=== PATIENT | female | born 1945 ===

== ENCOUNTER 2017-02-16 17:11 | Inpatient (IN) | payer MEDICARE, OTHER ==
--- NOTE | 2017-02-16 18:25 | ED PDOC ---
HPI: CCC, URI, Sore Throat Time Seen by Provider: 02/16/17 17:27 Chief Complaint (Nursing): Shortness Of Breath Chief Complaint (Provider): Shortness of Breath History Per: Patient History/Exam Limitations: no limitations Have you had recent travel within the past 21 days to any of the following countries: [place], [place], [place] or [place]?: No Onset/Duration Of Symptoms: Days (x7) Current Symptoms Are (Timing): Still Present Sick Contacts (Context): None Associated Symptoms: Other (chest pressure). denies: Fever Additional Complaint(s): 71 year old female presents to ED with complaints of shortness of breath x1 week and has a past medical history of rheumatoid arthritis and HTN. (+) nonproductive cough and intermittent midsternal chest pain x2 weeks but no pain at this time. (-) fever or palpitations. PCP: Bryson Isbell Past Medical History Reviewed: Historical Data, Nursing Documentation, Vital Signs Vital Signs: Last Vital Signs Temp 97.5 F L 02/21/17 16:00 Pulse 100 H 03/03/17 16:57 Resp 18 02/21/17 16:00 BP 110/78 02/21/17 16:00 Pulse Ox 98 03/03/17 16:57 - Medical History PMH: Arthritis (Rheumatoid), HTN Denies: No Chronic Diseases - Surgical History Surgical History: No Surg Hx - Family History Family History: States: Unknown Family Hx - Social History Current smoker - smoking cessation education provided: No Ex-Smoker (has not smoked in the last 12 months): No Alcohol: None Drugs: Denies - Home Medications Home Medications: Ambulatory Orders Medication Instructions Recorded Celecoxib [celeBREX] 200 mg PO DAILY 02/17/17 Duloxetine HCl [Duloxetine HCl] 60 mg PO DAILY 02/17/17 Levothyroxine [Synthroid] 50 mcg PO DAILY 02/17/17 Loratadine [Claritin] 10 mg PO DAILY 02/17/17 Losartan [Cozaar] 25 mg PO DAILY 02/17/17 Methotrexate 8 tab PO FR 02/17/17 Tofacitinib Citrate [Xeljanz] 5 mg PO DAILY 02/17/17 Atorvastatin [Lipitor] 40 mg PO DAILY 02/21/17 Azithromycin [Zithromax] 250 mg PO DAILY 02/21/17 Enoxaparin [Lovenox] 40 mg SQ DAILY 02/21/17 Piperacillin/Tazobact 3.375 gm 3.375 gm IVPB Q6 02/21/17 [Zosyn 3.375 in NS 100ml] - Allergies Allergies/Adverse Reactions: Allergies Allergy/AdvReac Type Severity Reaction Status Date / Time No Known Allergies Allergy Verified 02/21/17 18:49 Review of Systems ROS Statement: Except As Marked, All Systems Reviewed And Found Negative Constitutional: Negative for: Fever Cardiovascular: Positive for: Chest Pain (chest pressure, but no pain at this time). Negative for: Palpitations Respiratory: Positive for: Cough, Shortness of Breath. Negative for: Sputum Physical Exam - Reviewed Nursing Documentation Reviewed: Yes Vital Signs Reviewed: Yes - Physical Exam Appears: Positive for: Non-toxic, No Acute Distress Skin: Positive for: Warm, Dry, Pallor Eye Exam: Positive for: Normal appearance Cardiovascular/Chest: Positive for: Regular Rate, Rhythm, Murmur Respiratory: Positive for: Normal Breath Sounds (in right lung), Decreased Breath Sounds (in left base). Negative for: Respiratory Distress Gastrointestinal/Abdominal: Positive for: Soft. Negative for: Tenderness Extremity: Positive for: Other (contracted digits) Neurologic/Psych: Positive for: Alert, Oriented - Laboratory Results Result Diagrams: 02/19/17 04:20 02/19/17 04:20 - ECG ECG Rhythm: Positive for: Sinus Rhythm, Left Bundle Branch Block Rate: 100 O2 Sat by Pulse Oximetry: 98 (RA) Pulse Ox Interpretation: Normal - Radiology X-Ray: Interpreted by Me X-Ray Interpretation: Infiltrates (RML, LLL) Medical Decision Making Medical Decision Makin Initial impression: chest pain, ASC, PNA Initial plan: * ABO/RH type * T&S * EKG * Labs * Lactic acid * Trop I * PTT/PT * CXR * BCx 1843 EKG: NSR @ 100 bpm. LBBB. No old EKG to compare. Scribe Attestation: Documented by Radha Robledo acting as a scribe for Yuki Marks MD. Scribe Attestation: All medical record entries made by the Scribe were at my direction and personally dictated by me. I have reviewed the chart and agree that the record accurately reflects my personal performance of the history, physical exam, medical decision making, and the department course for this patient. I have also personally directed, reviewed, and agree with the discharge instructions and disposition. Disposition - Clinical Impression Clinical Impression: Congestive cardiac failure, LBBB (left bundle branch block) - Disposition Disposition: Transfer of Care Disposition Time: 19:00 Condition: STABLE Patient Signed Over To: Mariella Carcamo
[2017-02-16] MEDS ORDERED: Azithromycin 500 MG in Sodium Chloride 0.9% 250 ML IV STA (18:36)
[2017-02-16 18:40] LABS: BASO # 0.1 K/uL (0.0-0.2); BASO % 0.6 % (0.0-2.0); EOS % 0.2 % (0.0-4.0); LYMPH # 0.9 K/uL (1.0-4.3); LYMPH % 8.4 % (20.0-40.0); MEAN CELL VOLUME 98.5 fl (81.0-99.0); MEAN CORPUSCULAR HEMOGLOBIN 31.4 pg (27.0-31.0); MEAN CORPUSCULAR HGB CONC 31.9 g/dL (33.0-37.0); MEAN PLATELET VOLUME 9.9 fl (7.2-11.7); MONO # 0.9 K/uL (0.0-0.8); NEUT % 82.8 % (50.0-75.0); NRBC % 0.1 % (0.0-0.0); PLATELET COUNT 234 K/uL (130-400); RED CELL DISTRIBUTION WIDTH 15.9 % (11.5-14.5); WHITE BLOOD COUNT 10.9 K/uL (4.8-10.8)
[2017-02-16 18:54] LABS: ALB/GLOB RATIO 1.2 (1.0-2.1); ALKALINE PHOSPHATASE 94 U/L (38-126); ALT/SGPT 163 U/L (9-52); AST/SGOT 120 U/L (14-36); BILIRUBIN,TOTAL 2.1 mg/dl (0.2-1.3); BLOOD UREA NITROGEN 18 mg/dl (7-17); CALCIUM 9.1 mg/dL (8.4-10.2); CARBON DIOXIDE 24 mmol/L (22-30); CHLORIDE 108 mmol/L (98-107); GFR AFRICAN-AMERICAN > 60; GLUCOSE,RANDOM 107 mg/dL (65-105); POTASSIUM 4.4 MMOL/L (3.6-5.0); SODIUM 146 mmol/l (132-148); TOTAL PROTEIN 6.3 G/DL (6.3-8.2)
[2017-02-16 19:03] LABS: PARTIAL THROMBOPLASTIN TIME 23.9 SECONDS (23.3-32.5)
[2017-02-16] MEDS ORDERED: cefTRIAXone (Rocephin) 1 gm Inj ONE (19:15)
--- NOTE | 2017-02-16 20:03 | ED PDOC ---
- Laboratory Results Result Diagrams: 02/16/17 18:30 02/16/17 18:30 - ECG O2 Sat by Pulse Oximetry: 98 (RA) Medical Decision Making Medical Decision Makin Patient signed over to me from Yuki Marks MD pending labs/admission. Patients has favor maker Dr Palacio. He will be consulted by FP team. Scribe Attestation: Documented by Radha Robledo acting as a scribe for Mariella Carcamo MD. Scribe Attestation: All medical record entries made by the Scribe were at my direction and personally dictated by me. I have reviewed the chart and agree that the record accurately reflects my personal performance of the history, physical exam, medical decision making, and the department course for this patient. I have also personally directed, reviewed, and agree with the discharge instructions and disposition. Disposition Discussed With : Dimas Sanchez Doctor Will See Patient In The: ED Counseled Patient/Family Regarding: Studies Performed, Diagnosis, Need For Followup - Clinical Impression Clinical Impression: CHF (congestive heart failure), LBBB (left bundle branch block) - POA Present On Arrival: None - Disposition Disposition: Admitted as In-Patient Disposition Time: 20:30
[2017-02-16 20:18] LABS: LARGE PLATELETS PRESENT; NEUTROPHIL 88 % (42-75); TOTAL CELLS COUNTED 100
--- NOTE | 2017-02-16 21:35 | CP.PCM.HP ---
Addendum entered and electronically signed by Dimas Sanchez MD 02/16/17 22:53 : A/P addendum: Elevated Liver Enzymes could be due to hepatic congestion 2/2 right sided heart failure follow ECHO in AM, since none on file to compare Cardiology input appreciated Original Note: <Dimas Sanchez - Last Filed: 02/16/17 22:36> History of Present Illness - History of Present Illness History of Present Illness: 71 y/o F with PMH of CAD, NE (3 years ago s/p cardiac cath but no stent placement), HTN, RA and hypothyroidism presenting with dyspnea on exertion x1 week. Associated w/ nonproductive cough and intermittent midsternal pressure type chest pain x2 weeks but no pain at this time. States being able to walk 1- 2 blocks only, does not take stairs due to dyspnea, uses 2 pillows to sleep at night due to orthopnea. States last ECHO was last year w/ air conditioning unit tester and was normal as per patient. Currently denies f/c/n/v/cp/ sob/ abd pain/focal weakness/MILLER/parasthesias Last seen by air conditioning unit tester Dr. Palacio 1 month ago, states being told ''she was fine''. Patient has not seen her PMD Dr. Isbell since 04/2016, stating that her other doctors have been refilling her medications. States being compliant with medications. ED Course: lasix, nitro, cxr, EKG revealing LBBB, troponin neg, pro BNP 68394, rocephin and azithro x 1 dose PMD: Dr. Isbell (last visit in [facility] since 04/2016, could not access progress notes for that visit) Agronomy Location Manager: Dr. Palacio Rheum: Dr. Andrea PMH: CAD, [place] (3 years ago s/p cardiac cath but no stent placement as per patient ), HTN, RA and hypothyroidism PSH: denies Meds: see reconciled list below Allergies: NKDA SH: smoker ( quit 20+ years ago), denies etoh, drugs Present on Admission - Present on Admission Any Indicators Present on Admission: No Review of Systems - Review of Systems Review of Systems: see hpi Past Patient History - Past Social History Alcohol: None Drugs: Denies - CARDIAC Hx Hypertension: Yes - MUSCULOSKELETAL/RHEUMATOLOGICAL Hx Arthritis: Yes (Rheumatoid) - PSYCHIATRIC Hx Substance Use: No Meds Allergies/Adverse Reactions: Allergies Allergy/AdvReac Type Severity Reaction Status Date / Time No Known Allergies Allergy Verified 02/16/17 17:14 Physical Exam - Constitutional Appears: No Acute Distress, Older Than Stated Age - Head Exam Head Exam: ATRAUMATIC - Eye Exam Eye Exam: PERRL - ENT Exam ENT Exam: Mucous Membranes Moist - Respiratory Exam Respiratory Exam: Decreased Breath Sounds (BS decreased on BL lung bases), Rales. absent: Accessory Muscle Use, Respiratory Distress - Cardiovascular Exam Cardiovascular Exam: +S1, +S2 - GI/Abdominal Exam GI & Abdominal Exam: Soft. absent: Distended, Guarding, Tenderness - Extremities Exam Extremities exam: Positive for: normal capillary refill, pedal pulses present. Negative for: calf tenderness, pedal edema Additional comments: ulnar deviation seen bilaterally due to severe RA - Neurological Exam Neurological exam: Alert, Oriented x3 - Psychiatric Exam Psychiatric exam: Normal Affect, Normal Mood - Skin Skin Exam: Dry, Warm Results - Vital Signs Recent Vital Signs: Last Vital Signs Temp 98.3 F 02/16/17 17:14 Pulse 100 H 02/16/17 18:55 Resp 18 02/16/17 18:00 BP 124/84 02/16/17 17:14 Pulse Ox 98 02/16/17 21:01 - Labs Result Diagrams: 02/16/17 18:30 02/16/17 18:30 Labs: Laboratory Results - last 24 hr 02/16/17 02/16/17 18:30 19:06 WBC 10.9 H RBC 4.37 Hgb 13.7 Hct 43.0 MCV 98.5 MCH 31.4 H MCHC 31.9 L RDW 15.9 H Plt Count 234 MPV 9.9 Neut % (Auto) 82.8 H Lymph % (Auto) 8.4 L Cabell % (Auto) 8.0 Eos % (Auto) 0.2 Baso % (Auto) 0.6 Neut # 9.0 H Lymph # 0.9 L Cabell # 0.9 H Eos # 0.0 Baso # 0.1 Neutrophils % (Manual) 88 H Lymphocytes % (Manual) 6 L Monocytes % (Manual) 6 Platelet Estimate Normal Large Platelets Present Anisocytosis (manual) Slight PT 12.9 H INR 1.24 H APTT 23.9 Sodium 146 Potassium 4.4 Chloride 108 H Carbon Dioxide 24 Anion Gap 18 BUN 18 H Creatinine 0.8 Est GFR ( Amer) > 60 Est GFR (Non-Af Amer) > 60 Random Glucose 107 H Lactic Acid 2.2 H Calcium 9.1 Total Bilirubin 2.1 H AST 120 H ALT 163 H Alkaline Phosphatase 94 Troponin I 0.0200 NT-Pro-B Natriuret Pep 43245 H Total Protein 6.3 Albumin 3.4 L Globulin 2.9 Albumin/Globulin Ratio 1.2 Blood Type O POSITIVE Blood Type Confirm O POSITIVE Antibody Screen Negative BBK History Checked No verified bt - EKG Data EKG Interpreted by: Myself - EKG Data EKG comments: LBBB seen on EKG, none previously on file to compare Assessment & Plan - Assessment and Plan (Free Text) Plan: 71 y/o F with PMH of CAD, [place] (3 years ago s/p cardiac cath but no stent placement), HTN, RA and hypothyroidism admitted due to pulmonary congestion, possible acute CHF exacerbation. Dyspnea on Exertion likely 2/2 Acute CHF exacerbation ED Course: lasix, nitro, cxr, EKG revealing LBBB, troponin neg, pro BNP 21616, rocephin and azithro x 1 dose VS stable, afebrile, no leukocytosis, good O2 sat on RA EKG: LBBB, no previous ekg to compare Lasix 40 IV daily repeat CXR in AM ECHO in AM Agronomy Location Manager: Dr. Palacio (contacted by ED physician) daily weights fluid restriction Cough (non productive) rocephin and azithro x 1 dose in ED BCX trawn in ED, pending repeat CXR in AM HTN chronic, controlled c/w home med Losartan Hypothyroidism chronic, controlled c/w home med synthroid RA chronic, controlled c/w home med zeljanz, MTX, celacoxib Ppx DVT - Lovenox 40 SC daily Diet HH, fluid restriction <Petrona Saucedo - Last Filed: 02/17/17 08:29> Physical Exam - Skin Additional comments: Attestation note Attending statement Case discussed with resident. Exac. of CHF. Treatment started in ED with reported stabilization. Admit for further treatment. Agree with plan. Results - Vital Signs Recent Vital Signs: Last Vital Signs Temp 97.8 F 02/17/17 08:15 Pulse 84 04/03/17 08:15 Resp 17 02/17/17 08:15 BP 118/62 02/17/17 08:15 Pulse Ox 98 02/17/17 08:05 - Labs Result Diagrams: 02/16/17 18:30 02/16/17 18:30 Labs: Laboratory Results - last 24 hr 02/17/17 04:00 Grp A Beta Strep Ag Negative
[2017-02-17 00:43] LABS: VENOUS BLOOD GAS BASE EXCESS -0.8 mmol/L (0.0-2.0); VENOUS BLOOD GAS MODE 2LNC; VENOUS BLOOD GAS PCO2 44 mmHg (40-60); VENOUS BLOOD PH 7.36 (7.32-7.43)
[2017-02-17] MEDS ORDERED: Levothyroxine 50 MCG TAB PO SCH (06:30)
--- NOTE | 2017-02-17 08:32 | CARD ---
APPROVED REPORT EKG Measurement Heart [id number] HI [id number] <Conclusion> Normal sinus rhythm Possible Left atrial enlargement Left bundle branch block Abnormal ECG
--- NOTE | 2017-02-17 08:45 | RAD ---
PROCEDURE: CHEST RADIOGRAPH, 1 VIEW HISTORY: Cough COMPARISON: Comparison is made to 07/08/2016 FINDINGS: LUNGS: Moderate pulmonary vascular congestion seen. Right perihilar opacities seen could be also due to pulmonary congestion. PLEURA: Blunting of the costophrenic angles. CARDIOVASCULAR: The cardiac silhouette is mildly enlarged. OSSEOUS STRUCTURES: No significant abnormalities. VISUALIZED UPPER ABDOMEN: Normal. OTHER FINDINGS: None. IMPRESSION: Findings suspicious for moderate pulmonary vascular congestion. Possibility of right perihilar opacity also should be considered. Pneumonia versus neoplasm should be considered.
[2017-02-17] MEDS ORDERED: Enoxaparin 40 mg Syringe SC SCH (09:00)
[2017-02-17 09:01] LABS: BASO # 0.1 K/uL (0.0-0.2); EOS # 0.1 K/uL (0.0-0.7); EOS % 0.8 % (0.0-4.0); HEMATOCRIT 42.9 % (34.0-47.0); LYMPH # 1.4 K/uL (1.0-4.3); LYMPH % 12.7 % (20.0-40.0); MEAN CELL VOLUME 98.7 fl (81.0-99.0); MEAN CORPUSCULAR HEMOGLOBIN 32.1 pg (27.0-31.0); MEAN CORPUSCULAR HGB CONC 32.5 g/dL (33.0-37.0); MONO % 9.4 % (0.0-10.0); NEUT # 8.4 K/uL (1.8-7.0); NEUT % 76.1 % (50.0-75.0); NRBC % 0.3 % (0.0-0.0)
[2017-02-17 09:14] LABS: ALB/GLOB RATIO 1.1 (1.0-2.1); ALKALINE PHOSPHATASE 94 U/L (38-126); ALT/SGPT 171 U/L (9-52); AST/SGOT 121 U/L (14-36); BILIRUBIN,TOTAL 1.5 mg/dl (0.2-1.3); BLOOD UREA NITROGEN 22 mg/dl (7-17); CALCIUM 8.8 mg/dL (8.4-10.2); CARBON DIOXIDE 24 mmol/L (22-30); CHLORIDE 109 mmol/L (98-107); GFR AFRICAN-AMERICAN > 60; GLUCOSE,RANDOM 99 mg/dL (65-105); POTASSIUM 4.3 MMOL/L (3.6-5.0); SODIUM 145 mmol/l (132-148); TOTAL PROTEIN 6.2 G/DL (6.3-8.2)
[2017-02-17] MEDS ORDERED: Sodium Chloride 0.9% 500 ML IV ONE ×2 (10:12→10:27)
[2017-02-17 11:42] LABS: ABG ALLEN TEST YES; ARTERIAL BLOOD GAS HCO3 24.2 mmol/L (21-28); ARTERIAL BLOOD GAS O2 CAPACITY 17.9 mL/dL (16-24); ARTERIAL BLOOD GAS O2 CONTENT 17.7 ML/dL (15-23); ARTERIAL BLOOD GAS PH 7.32 (7.35-7.45); ARTERIAL BLOOD GAS PO2 97 mm/Hg (80-100); ARTERIAL BLOOD HGB O2 SAT 96.1 % (95.0-98.0); CARBOXYHEMOGLOBIN 2.3 % (0.5-1.5); METHEMOGLOBIN 0.7 % (0.0-3.0)
--- NOTE | 2017-02-17 12:03 | CP.PCM.CON ---
History of Present Illness - History of Present Illness History of Present Illness: CC: Dyspnea, dizziness. HPI: This is a pleasnt 71 year old female with a PMH of hypertension, dyslipidemia and questionable CAD who began to experience shortness of breath over the past few days with a slightly productive cough and epigastric discomfort which she describes a "hole in heart" which prevented her from catching her breath. She denies kelsie chest pain but this am noted dizziness and lightheadedness and is brought to [facility] for evaluation. An ECG reveals sinus tachycardia at 100 BPM, LBBB, two troponins are negative, pro BNP is 13,000, WBC 11K and chest Xray reveals pulmonary vascular congestion. The patient has been started on broad spectrum antibiotics and felt slightly improved until this as when she was noted to be hypotensive for which an AWNING HANGER was called and the patient is transferred to the ICU for IVF resuscitation. She is resting comfortably at the present time and has no fever or chest pain and her dyspnea has improved. Review of Systems - Constitutional Constitutional: Fatigue, Lethargy - EENT Additional comments: Negative. - Cardiovascular Cardiovascular: Dyspnea on Exertion - Respiratory Respiratory: Dyspnea on Exertion, Chest Congestion - Gastrointestinal Additional comments: Epigastric pain resolved. - Genitourinary Additional comments: Negative. - Musculoskeletal Musculoskeletal: Arthralgias, Deformity, Stiffness - Integumentary Additional comments: Negative. - Neurological Neurological: Dizziness - Psychiatric Additional comments: Negative. - Endocrine Endocrine: Fatigue - Hematologic/Lymphatic Additional comments: Negative. Past Patient History - Past Medical History & Family History Past Medical History?: Yes - Past Social History Smoking Status: Former Smoker Chewing Tobacco Use: No Alcohol: None Drugs: Denies - CARDIAC Hx Cardiac Disorders: Yes Hx Congestive Heart Failure: Yes Hx Heart Attack: Yes (as per patient) Hx Hypertension: Yes Hx Internal Defibrillator: No Hx Pacemaker: No - PULMONARY Hx Respiratory Disorders: No - NEUROLOGICAL Hx Neurological Disorder: No - HEENT Hx HEENT Problems: No - RENAL Hx Chronic Kidney Disease: No - ENDOCRINE/METABOLIC Hx Endocrine Disorders: Yes Hx Hypothyroidism: Yes - HEMATOLOGICAL/ONCOLOGICAL Hx Blood Disorders: No - INTEGUMENTARY Hx Dermatological Problems: No - MUSCULOSKELETAL/RHEUMATOLOGICAL Hx Arthritis: Yes (Rheumatoid) - GASTROINTESTINAL Hx Gastrointestinal Disorders: No - GENITOURINARY/GYNECOLOGICAL Hx Genitourinary Disorders: No - PSYCHIATRIC Hx Psychophysiologic Disorder: No Hx Substance Use: No - SURGICAL HISTORY Hx Cardiac Catheterization: Yes - ANESTHESIA Hx Anesthesia: No Meds Allergies/Adverse Reactions: Allergies Allergy/AdvReac Type Severity Reaction Status Date / Time No Known Allergies Allergy Verified 02/16/17 17:14 - Medications Medications: Current Medications Enoxaparin Sodium (Lovenox) 40 mg SC DAILY NOEL PRN Reason: Protocol Vancomycin HCl 1 gm/ Sodium (Chloride) 250 mls @ 166.667 mls/hr IVPB Q12 NOEL Azithromycin 500 mg/ Sodium (Chloride) 250 mls @ 250 mls/hr IVPB DAILY NOEL Stop: 02/20/17 17:01 Piperacillin Sod/Tazobactam (Sod 3.375 gm/ Sodium Chloride) 100 mls @ 100 mls/ hr IVPB Q6 [facility] Levothyroxine Sodium (Synthroid) 50 mcg PO DAILY@0630 [facility] Morphine Sulfate (Morphine) 2 mg IVP Q6 PRN PRN Reason: Pain, severe (8-10) Physical Exam - Constitutional Appears: Well, Non-toxic - Head Exam Head Exam: ATRAUMATIC, NORMAL INSPECTION, NORMOCEPHALIC - Eye Exam Eye Exam: EOMI, Normal appearance Pupil Exam: PERRL - ENT Exam ENT Exam: Mucous Membranes Dry, Normal Exam - Neck Exam Neck exam: Positive for: Full Rom - Respiratory Exam Respiratory Exam: Clear to Auscultation Bilateral, NORMAL BREATHING PATTERN - GI/Abdominal Exam GI & Abdominal Exam: Soft - Rectal Exam Rectal Exam: Deferred - Extremities Exam Extremities exam: Positive for: normal inspection Additional comments: Arthritic changes in digits. - Back Exam Back exam: NORMAL INSPECTION - Neurological Exam Neurological exam: Alert, Oriented x3 - Psychiatric Exam Psychiatric exam: Normal Affect, Normal Mood - Skin Skin Exam: Dry, Normal Color, Warm Results - Vital Signs Recent Vital Signs: Last Vital Signs Temp 97.5 F L 02/17/17 10:55 Pulse 96 H 02/17/17 10:55 Resp 30 H 02/17/17 10:55 BP 82/67 L 02/17/17 10:55 Pulse Ox 93 L 02/17/17 10:35 - Labs Result Diagrams: 02/17/17 08:25 02/17/17 08:30 Labs: Laboratory Results - last 24 hr 02/17/17 02/17/17 02/17/17 04:00 08:25 08:30 WBC 11.0 H RBC 4.35 Hgb 14.0 Hct 42.9 MCV 98.7 MCH 32.1 H MCHC 32.5 L RDW 16.0 H Plt Count 113 L D MPV 10.0 Neut % (Auto) 76.1 H Lymph % (Auto) 12.7 L Jerome % (Auto) 9.4 Eos % (Auto) 0.8 Baso % (Auto) 1.0 Neut # 8.4 H Lymph # 1.4 Jerome # 1.0 H Eos # 0.1 Baso # 0.1 pCO2 pO2 HCO3 ABG pH ABG Total CO2 ABG O2 Saturation ABG O2 Content ABG Base Excess ABG Hemoglobin ABG Carboxyhemoglobin POC ABG HHb (Measured) ABG Methemoglobin ABG O2 Capacity Fer Test A-a O2 Difference Hgb O2 Saturation FiO2 Crit Value Read Back Sodium 145 Potassium 4.3 Chloride 109 H Carbon Dioxide 24 Anion Gap 16 BUN 22 H Creatinine 0.7 Est GFR ( Amer) > 60 Est GFR (Non-Af Amer) > 60 POC Glucose (mg/dL) Random Glucose 99 Lactic Acid 1.2 Calcium 8.8 Total Bilirubin 1.5 H AST 121 H ALT 171 H Alkaline Phosphatase 94 Lactate Dehydrogenase Troponin I Total Protein 6.2 L Albumin 3.2 L Globulin 3.0 Albumin/Globulin Ratio 1.1 Grp A Beta Strep Ag Negative 02/17/17 02/17/17 02/17/17 09:54 10:13 10:25 WBC RBC Hgb Hct MCV MCH MCHC RDW Plt Count MPV Neut % (Auto) Lymph % (Auto) Jerome % (Auto) Eos % (Auto) Baso % (Auto) Neut # Lymph # Jerome # Eos # Baso # pCO2 pO2 HCO3 ABG pH ABG Total CO2 ABG O2 Saturation ABG O2 Content ABG Base Excess ABG Hemoglobin ABG Carboxyhemoglobin POC ABG HHb (Measured) ABG Methemoglobin ABG O2 Capacity Fer Test A-a O2 Difference Hgb O2 Saturation FiO2 Crit Value Read Back Sodium Potassium Chloride Carbon Dioxide Anion Gap BUN Creatinine Est GFR ( Amer) Est GFR (Non-Af Amer) POC Glucose (mg/dL) 195 H 200 H Random Glucose Lactic Acid Calcium Total Bilirubin AST ALT Alkaline Phosphatase Lactate Dehydrogenase Troponin I 0.0230 Total Protein Albumin Globulin Albumin/Globulin Ratio Grp A Beta Strep Ag 02/17/17 02/17/17 10:30 10:46 WBC RBC Hgb Hct MCV MCH MCHC RDW Plt Count MPV Neut % (Auto) Lymph % (Auto) Jerome % (Auto) Eos % (Auto) Baso % (Auto) Neut # Lymph # Jerome # Eos # Baso # pCO2 50 H pO2 97 HCO3 24.2 ABG pH 7.32 L ABG Total CO2 27.3 ABG O2 Saturation 99.0 H ABG O2 Content 17.7 ABG Base Excess -0.9 ABG Hemoglobin 13.0 ABG Carboxyhemoglobin 2.3 H POC ABG HHb (Measured) 1.0 ABG Methemoglobin 0.7 ABG O2 Capacity 17.9 Fer Test Yes A-a O2 Difference 40.0 Hgb O2 Saturation 96.1 FiO2 28.0 Crit Value Read Back y Sodium Potassium Chloride Carbon Dioxide Anion Gap BUN Creatinine Est GFR ( Amer) Est GFR (Non-Af Amer) POC Glucose (mg/dL) Random Glucose Lactic Acid Calcium Total Bilirubin AST ALT Alkaline Phosphatase Lactate Dehydrogenase 760 H Troponin I Total Protein Albumin Globulin Albumin/Globulin Ratio Grp A Beta Strep Ag Assessment & Plan - Assessment and Plan (Free Text) Assessment: Dyspnea. Rule out influenza. Hypotension. Near syncope. Possible CHF. Plan: Continue IVF. Monitor hemodynamics. Monitor labs. ECHO. Hold antihypertensive medications. Will follow with you. Thank you for allowing me to participate in the care of this patient. - Date & Time Date: 02/17/17 Time: 12:14
--- NOTE | 2017-02-17 12:39 | PCM.RRTMUL ---
HAMMERER HELPER Nurse Assessment - Situation HAMMERER HELPER Responder Arrival Time:: 09:56 Location:: Room Number:: 402-2 HAMMERER HELPER Reason for Call: Hypotension, Looks Sicker HAMMERER HELPER Called By: RN - IV IV Inserted during HAMMERER HELPER?: Yes IV Fluids Initiated During HAMMERER HELPER?: NS@999 x 300cc New IV Insertion Tolerance:: Good - Respiratory Oxygen Delivery Method:: Nasal Cannula Received Nebulizer Treatments:: No Was the Patient Ventilated with Bag/Mask 100% O2?: No Secretions Suctioned?: No Was the Patient Intubated?: No Was the Patient Placed on a Ventilator?: No - Diagnostic Test Ordered EKG:: Yes Chest X-Ray:: Yes CT Scan:: No - Stat Labs Ordered HAMMERER HELPER Stat Labs Ordered:: TROPONIN HAMMERER HELPER Other Labs Ordered:: d-dimer CPR started during HAMMERER HELPER?: No - Vital Signs Blood Pressure:: 82/67 Pulse Rate:: 96 Respiratory Rate:: 30 Temperature:: 97.5 F Oxygen Saturation:: 100 - Sepsis Screen Part 1 Sepsis Screen Part 1: Hypotensive - Time HAMMERER HELPER Ended Time HAMMERER HELPER Ended:: 10:30 - Vital Signs at end of HAMMERER HELPER Blood Pressure:: 84/56 Pulse Rate:: 101 Respiratory Rate:: 26 Temperature:: 97.4 F O2 Sat by Pulse Oximetry:: 97 - Recommendations 5) HAMMERER HELPER Level of Care Recommendations: Transfer to ICU Responder Note - Acute Change in Patient Acute Change in Patient: (Select all that apply): Acute change in SBP below 90mmHg - Chest Pain Chest Pain:(If answer is yes, complete next 2 questions): No - Seizure Seizure:: No - Neurological Status Neurological Status (Select all that apply):: Alert, Responsive, Oriented, Verbal, Follows Commands - Respiratory HAMMERER HELPER Delivery Method:: Nasal Cannula @L/min Oxygen Flow Rate:: 3 Summary - Summary of Event Summary of Event: The patient is a 71 y/o woman with PMH of CAD, [place] (3 years ago s/p cardiac cath but no stent placement), HTN, RA and hypothyroidism presenting with dyspnea on exertion x1 week. The patient was brought from ED to [address] [place] [address]. Upon arrival the patient was found to have a BP <90 systolic and complaints of dyspnea. The patient denied chest pain and remained AAOx3. The patient was diaphoretic and clammy. The patient had fingerstick done which showed glucose of 200. The patient had repeat troponin and d-dimer collected. The patient had repeat EKG which was unchanged compared to the one done in the ED. The patient was given bolus of NS of 500mL and evaluated by needle grader for transfer to ICU. Patient had repeat CXR which is improved compared to one done in ED. The patient was transferred to ICU due to hypotension and atypical pneumonia. The patient's antibiotics were altered by adding zosyn and vanc, continuing azithromycin, and DC'ing ceftriaxone. The patient is currently in ICU and has been evaluated by cardiology. Outcomes - HAMMERER HELPER Outcomes HAMMERER HELPER Outcomes: The patient is currently in ICU.
[2017-02-17 13:23] VITALS: BMI 33.1
--- NOTE | 2017-02-17 14:28 | RAD ---
HISTORY: SOB COMPARISON: Comparison chest 02/16/2017 FINDINGS: LUNGS: Re- demonstrated is mild pulmonary venous congestive changes. . Questionable small left-sided effusion. PLEURA: No pneumothorax apparent. CARDIOVASCULAR: Cardiomegaly. OSSEOUS STRUCTURES: No significant abnormalities. VISUALIZED UPPER ABDOMEN: Normal. OTHER FINDINGS: IMPRESSION: Mild pulmonary vascular congestion with questionable small left effusion. Cardiomegaly.
[2017-02-17] MEDS ORDERED: Sodium Chloride 0.9% 50 ML IV ONE (15:46)
[2017-02-17] MEDS ORDERED: Iodixanol 320 MG/ML 100 ML BOTTLE IV ONE (15:46)
[2017-02-17] MEDS ORDERED: Piperacillin/Tazobact 3.375 GM in Sodium Chloride 0.9% 100 ML IVPB SCH (16:00)
[2017-02-17] MEDS: Piperacillin/Tazobact 3.375 GM in Sodium Chloride 0.9% 100 ML IVPB SCH ×2 (16:36→21:06)
--- NOTE | 2017-02-17 16:39 | CT ---
PROCEDURE: CT Chest with contrast (Pulmonary Angiogram) HISTORY: Acute Tachypnea/SOB/ Elevated D-Dimer 2.14 COMPARISON: None available. TECHNIQUE: Axial computed tomography images were obtained of the chest in the pulmonary arterial phase of enhancement. Coronal and sagittal reformatted images were created and reviewed. Coronal and sagittal MIP images of the chest were also obtained is Intravenous contrast dose: 90 mL of Visipaque 320 Radiation dose: Total exam DLP = 384.35 mGy-cm. This CT exam was performed using one or more of the following dose reduction techniques: Automated exposure control, adjustment of the mA and/or kV according to patient size, and/or use of iterative reconstruction technique. FINDINGS: PULMONARY ARTERIES: Unremarkable. No pulmonary embolism. AORTA: The thoracic aorta is ectatic and tortuous. LUNGS: Nonspecific ground-glass opacities in the lungs are noted may be due to pulmonary vascular congestion. No evidence of pneumonia or mass lesion P PLEURAL SPACES: Small to moderate right pleural effusion and trace left pleural effusion are seen. HEART: The heart is moderately enlarged. 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 There is reflux of the contrast into the IVC and hepatic veins suggestive of right heart failure. LYMPH NODES: No lymphadenopathy. BONES, CHEST WALL: Unremarkable. No fracture or destructive lesion OTHER FINDINGS: Unremarkable. IMPRESSION: No evidence of pulmonary embolus. Moderate cardiomegaly. Nonspecific ground-glass opacities in the lungs likely due to pulmonary congestion. Small to moderate right and trace left pleural effusions.
[2017-02-17] MEDS ORDERED: Azithromycin 500 MG in Sodium Chloride 0.9% 250 ML IVPB SCH (17:00)
--- NOTE | 2017-02-17 17:06 | CARD ---
APPROVED REPORT EXAM: Two-dimensional and M-mode echocardiogram with Doppler and color Doppler. Other Information Quality : GoodRhythm : NSR INDICATION Congestive Heart Failure 2D DIMENSIONS IVSd0.72 (0.7-1.1cm)LVDd6.49 (3.9-5.9cm) LVOT Diameter2.40 (1.8-2.4cm)PWd0.89 (0.7-1.1cm) IVSs0.74 (0.8-1.2cm)LVDs6.59 (2.5-4.0cm) FS (%) 1.5 %PWs0.91 (0.8-1.2cm) M-Mode DIMENSIONS Left Atrium (MM)4.90 (2.5-4.0cm)IVSd0.83 (0.7-1.1cm) Aortic Root3.14 (2.2-3.7cm)LVDd7.28 (4.0-5.6cm) Aortic Cusp Exc.1.92 (1.5-2.0cm)PWd0.60 (0.7-1.1cm) IVSs0.93 cmFS (%) 8 % LVDs6.72 (2.0-3.8cm)PWs0.93 cm Mitral Valve E/A ratio0.0 TDI E/Lateral E'0.0E/Medial E'0.0 Tricuspid Valve TR Peak [id number] [id number] Peak Gr.29mmHg [id number] LEFT VENTRICLE The Left Ventricle is severely dilated. There is normal left ventricular wall thickness. Left ventricle systolic function is severely impaired. The Ejection Fraction is - 10-15%. generalized profound LV hypokinesia Transmitral Doppler flow pattern is Grade II-pseudonormal filling dynamics. No left ventricle thrombus noted on this study. There is no ventricular septal defect visualized. There is no left ventricular aneurysm. There is no mass noted in the left ventricle. RIGHT VENTRICLE The right ventricle is normal size. There is normal right ventricular wall thickness. The right ventricular systolic function is normal. ATRIA The left atrium is moderately dilated. There is no thrombus suspected in the left atrium. The right atrium size is normal. The interatrial septum is intact with no evidence for an atrial septal defect. AORTIC VALVE The aortic valve is normal in structure and function. No aortic regurgitation is present. There is no aortic valvular stenosis. MITRAL VALVE The mitral valve is normal in structure and function. There is no evidence of mitral valve prolapse. There is no mitral valve stenosis. Mitral regurgitation is moderate to severe. TRICUSPID VALVE The tricuspid valve is normal in structure and function. There is moderate to severe tricuspid regurgitation. Right ventricular systolic pressure is estimated at 37 mmHg. There is no tricuspid valve prolapse or vegetation. There is no tricuspid valve stenosis. PULMONIC VALVE The pulmonary valve is normal in structure and function. There is trace pulmonic valvular regurgitation. GREAT VESSELS The aortic root is normal in size. The IVC is normal in size and collapses >50% with inspiration. PERICARDIAL EFFUSION The pericardium appears normal. There is no pleural effusion. <Conclusion> The Left Ventricle is severely dilated. There is normal left ventricular wall thickness. Left ventricle systolic function is severely impaired with a LVEF of - 10-15%. The left atrium is moderately dilated. The mitral, aortic and tricuspid valves are normal. There is moderate to severe both mitral regurgitation and tricuspid regurgitation.
--- NOTE | 2017-02-17 17:15 | CP.CCUPN ---
<Chino Kaur - Last Filed: 02/17/17 18:34> CCU Subjective - Physician Review Events Since Last Encounter (Free Text): 71 y.o. female with PMHx of CAD, GA approximatley 3 years ago s/p Cardiac Cath but with no stent placement), HTN, Hypothyroidism, and Rheumatoid Arthritis transferred to ICU after an INLETTER for shortness of breath. During the course of the INLETTER pt. was given a bolus of 500cc due to Hypotension, 12-lead EKG with no acute changes, and an elevated D-Dimer of 2.14. Pt. also put on Oxygen 3L nasal canula and a stat CXR showing: IMPRESSION: No evidence of pulmonary embolus, Moderate cardiomegaly, non-specific ground-glass opacities in the lungs likely due to pulmonary congestion. Small to moderate right and trace left pleural effusions. 02/17/17 17:55 02/17/17 18:06 02/17/17 18:10 CCU Objective - Vital Signs / Intake & Output Vital Signs (Last 4 hours): Vital Signs Temp Pulse Resp BP Pulse Ox 02/17/17 16:00 98.3 F 92 H 16 92/48 L 96 02/17/17 14:00 90 17 96/65 L 95 Intake and Output (Last 8hrs): Intake & Output 02/17/17 02/17/17 02/17/17 06:59 14:59 22:59 Intake Total 840 200 Balance 840 200 Weight 187 lb Intake: IV 600 200 Oral 240 Other: # Voids Urine, Voided 1 # Bowel Movements 1 - Medications Active Medications: Active Medications Generic Name Dose Route Start Last Admin Trade Name Freq PRN Reason Stop Dose Admin Enoxaparin Sodium 40 mg 02/18/17 09:00 Lovenox SC DAILY NOEL Protocol Vancomycin HCl 1 gm/ Sodium 250 mls @ 166.667 mls/hr 02/17/17 10:30 02/17/17 13 :31 Chloride IVPB 166.667 mls/hr Q12 NOEL Administration Azithromycin 500 mg/ Sodium 250 mls @ 250 mls/hr 02/17/17 17:00 Chloride IVPB 02/20/17 17:01 DAILY NOEL Piperacillin Sod/Tazobactam 100 mls @ 100 mls/hr 02/17/17 16:00 02/17/17 16:36 Sod 3.375 gm/ Sodium Chloride IVPB 100 mls/hr Q6 NOEL Administration Levothyroxine Sodium 50 mcg 02/18/17 06:30 Synthroid PO DAILY@0630 [facility] Morphine Sulfate 2 mg 02/17/17 10:27 Morphine IVP Q6 PRN Pain, severe (8-10) - Patient Studies Lab Studies: Lab Studies 02/17/17 02/17/17 02/17/17 Range/Units 12:46 11:30 10:46 WBC (4.8-10.8) K/uL RBC (3.80-5.20) Mil/uL Hgb (12.0-16.0) g/dL Hct (34.0-47.0) % MCV (81.0-99.0) fl MCH (27.0-31.0) pg MCHC (33.0-37.0) g/dL RDW (11.5-14.5) % Plt Count (130-400) K/uL MPV (7.2-11.7) fl Neut % (Auto) (50.0-75.0) % Lymph % (Auto) (20.0-40.0) % [place] % (Auto) (0.0-10.0) % Eos % (Auto) (0.0-4.0) % Baso % (Auto) (0.0-2.0) % Neut # (1.8-7.0) K/uL Lymph # (1.0-4.3) K/uL [place] # (0.0-0.8) K/uL Eos # (0.0-0.7) K/uL Baso # (0.0-0.2) K/uL D-Dimer, Quantitative 2.14 H (0-0.50) mg/L FEU pCO2 (35-45) mm/Hg pO2 (80-100) mm/Hg HCO3 (21-28) mmol/L ABG pH (7.35-7.45) ABG Total CO2 (22-28) mmol/L ABG O2 Saturation (95-98) % ABG O2 Content (15-23) ML/dL ABG Base Excess (-2.0-3.0) mmol/L ABG Hemoglobin (11.7-17.4) g/dL ABG Carboxyhemoglobin (0.5-1.5) % POC ABG HHb (Measured) (0.0-5.0) % ABG Methemoglobin (0.0-3.0) % ABG O2 Capacity (16-24) mL/dL Fer Test A-a O2 Difference mm/Hg Hgb O2 Saturation (95.0-98.0) % FiO2 % Crit Value Read Back Sodium (132-148) mmol/l Potassium (3.6-5.0) MMOL/L Chloride (98-107) mmol/L Carbon Dioxide (22-30) mmol/L Anion Gap (10-20) BUN (7-17) mg/dl Creatinine (0.7-1.2) mg/dL Est GFR ( Amer) Est GFR (Non-Af Amer) POC Glucose (mg/dL) (65-110) mg/dL Random Glucose (65-105) mg/dL Lactic Acid (0.7-2.1) MMOL/L Calcium (8.4-10.2) mg/dL Total Bilirubin (0.2-1.3) mg/dl AST (14-36) U/L ALT (9-52) U/L Alkaline Phosphatase (38-126) U/L Lactate Dehydrogenase 760 H (313-618) U/L Troponin I (0.00-0.120) ng/mL Total Protein (6.3-8.2) G/DL Albumin (3.5-5.0) g/dL Globulin (2.2-3.9) gm/dL Albumin/Globulin Ratio (1.0-2.1) Influenza Typ A,B (EIA) Negative for flu a/b (NEGATIVE) Grp A Beta Strep Ag (NEGATIVE) 02/17/17 02/17/17 02/17/17 Range/Units 10:30 10:25 10:13 WBC (4.8-10.8) K/uL RBC (3.80-5.20) Mil/uL Hgb (12.0-16.0) g/dL Hct (34.0-47.0) % MCV (81.0-99.0) fl MCH (27.0-31.0) pg MCHC (33.0-37.0) g/dL RDW (11.5-14.5) % Plt Count (130-400) K/uL MPV (7.2-11.7) fl Neut % (Auto) (50.0-75.0) % Lymph % (Auto) (20.0-40.0) % [place] % (Auto) (0.0-10.0) % Eos % (Auto) (0.0-4.0) % Baso % (Auto) (0.0-2.0) % Neut # (1.8-7.0) K/uL Lymph # (1.0-4.3) K/uL [place] # (0.0-0.8) K/uL Eos # (0.0-0.7) K/uL Baso # (0.0-0.2) K/uL D-Dimer, Quantitative (0-0.50) mg/L FEU pCO2 50 H (35-45) mm/Hg pO2 97 (80-100) mm/Hg HCO3 24.2 (21-28) mmol/L ABG pH 7.32 L (7.35-7.45) ABG Total CO2 27.3 (22-28) mmol/L ABG O2 Saturation 99.0 H (95-98) % ABG O2 Content 17.7 (15-23) ML/dL ABG Base Excess -0.9 (-2.0-3.0) mmol/L ABG Hemoglobin 13.0 (11.7-17.4) g/dL ABG Carboxyhemoglobin 2.3 H (0.5-1.5) % POC ABG HHb (Measured) 1.0 (0.0-5.0) % ABG Methemoglobin 0.7 (0.0-3.0) % ABG O2 Capacity 17.9 (16-24) mL/dL Fer Test Yes A-a O2 Difference 40.0 mm/Hg Hgb O2 Saturation 96.1 (95.0-98.0) % FiO2 28.0 % Crit Value Read Back y Sodium (132-148) mmol/l Potassium (3.6-5.0) MMOL/L Chloride (98-107) mmol/L Carbon Dioxide (22-30) mmol/L Anion Gap (10-20) BUN (7-17) mg/dl Creatinine (0.7-1.2) mg/dL Est GFR ( Amer) Est GFR (Non-Af Amer) POC Glucose (mg/dL) 200 H (65-110) mg/dL Random Glucose (65-105) mg/dL Lactic Acid (0.7-2.1) MMOL/L Calcium (8.4-10.2) mg/dL Total Bilirubin (0.2-1.3) mg/dl AST (14-36) U/L ALT (9-52) U/L Alkaline Phosphatase (38-126) U/L Lactate Dehydrogenase (313-618) U/L Troponin I 0.0230 (0.00-0.120) ng/mL Total Protein (6.3-8.2) G/DL Albumin (3.5-5.0) g/dL Globulin (2.2-3.9) gm/dL Albumin/Globulin Ratio (1.0-2.1) Influenza Typ A,B (EIA) (NEGATIVE) Grp A Beta Strep Ag (NEGATIVE) 02/17/17 02/17/17 02/17/17 Range/Units 09:54 08:30 08:25 WBC 11.0 H (4.8-10.8) K/uL RBC 4.35 (3.80-5.20) Mil/uL Hgb 14.0 (12.0-16.0) g/dL Hct 42.9 (34.0-47.0) % MCV 98.7 (81.0-99.0) fl MCH 32.1 H (27.0-31.0) pg MCHC 32.5 L (33.0-37.0) g/dL RDW 16.0 H (11.5-14.5) % Plt Count 113 L D (130-400) K/uL MPV 10.0 (7.2-11.7) fl Neut % (Auto) 76.1 H (50.0-75.0) % Lymph % (Auto) 12.7 L (20.0-40.0) % [place] % (Auto) 9.4 (0.0-10.0) % Eos % (Auto) 0.8 (0.0-4.0) % Baso % (Auto) 1.0 (0.0-2.0) % Neut # 8.4 H (1.8-7.0) K/uL Lymph # 1.4 (1.0-4.3) K/uL [place] # 1.0 H (0.0-0.8) K/uL Eos # 0.1 (0.0-0.7) K/uL Baso # 0.1 (0.0-0.2) K/uL D-Dimer, Quantitative (0-0.50) mg/L FEU pCO2 (35-45) mm/Hg pO2 (80-100) mm/Hg HCO3 (21-28) mmol/L ABG pH (7.35-7.45) ABG Total CO2 (22-28) mmol/L ABG O2 Saturation (95-98) % ABG O2 Content (15-23) ML/dL ABG Base Excess (-2.0-3.0) mmol/L ABG Hemoglobin (11.7-17.4) g/dL ABG Carboxyhemoglobin (0.5-1.5) % POC ABG HHb (Measured) (0.0-5.0) % ABG Methemoglobin (0.0-3.0) % ABG O2 Capacity (16-24) mL/dL Fer Test A-a O2 Difference mm/Hg Hgb O2 Saturation (95.0-98.0) % FiO2 % Crit Value Read Back Sodium 145 (132-148) mmol/l Potassium 4.3 (3.6-5.0) MMOL/L Chloride 109 H (98-107) mmol/L Carbon Dioxide 24 (22-30) mmol/L Anion Gap 16 (10-20) BUN 22 H (7-17) mg/dl Creatinine 0.7 (0.7-1.2) mg/dL Est GFR ( Amer) > 60 Est GFR (Non-Af Amer) > 60 POC Glucose (mg/dL) 195 H (65-110) mg/dL Random Glucose 99 (65-105) mg/dL Lactic Acid 1.2 (0.7-2.1) MMOL/L Calcium 8.8 (8.4-10.2) mg/dL Total Bilirubin 1.5 H (0.2-1.3) mg/dl AST 121 H (14-36) U/L ALT 171 H (9-52) U/L Alkaline Phosphatase 94 (38-126) U/L Lactate Dehydrogenase (313-618) U/L Troponin I (0.00-0.120) ng/mL Total Protein 6.2 L (6.3-8.2) G/DL Albumin 3.2 L (3.5-5.0) g/dL Globulin 3.0 (2.2-3.9) gm/dL Albumin/Globulin Ratio 1.1 (1.0-2.1) Influenza Typ A,B (EIA) (NEGATIVE) Grp A Beta Strep Ag (NEGATIVE) 02/17/17 Range/Units 04:00 WBC (4.8-10.8) K/uL RBC (3.80-5.20) Mil/uL Hgb (12.0-16.0) g/dL Hct (34.0-47.0) % MCV (81.0-99.0) fl MCH (27.0-31.0) pg MCHC (33.0-37.0) g/dL RDW (11.5-14.5) % Plt Count (130-400) K/uL MPV (7.2-11.7) fl Neut % (Auto) (50.0-75.0) % Lymph % (Auto) (20.0-40.0) % [place] % (Auto) (0.0-10.0) % Eos % (Auto) (0.0-4.0) % Baso % (Auto) (0.0-2.0) % Neut # (1.8-7.0) K/uL Lymph # (1.0-4.3) K/uL [place] # (0.0-0.8) K/uL Eos # (0.0-0.7) K/uL Baso # (0.0-0.2) K/uL D-Dimer, Quantitative (0-0.50) mg/L FEU pCO2 (35-45) mm/Hg pO2 (80-100) mm/Hg HCO3 (21-28) mmol/L ABG pH (7.35-7.45) ABG Total CO2 (22-28) mmol/L ABG O2 Saturation (95-98) % ABG O2 Content (15-23) ML/dL ABG Base Excess (-2.0-3.0) mmol/L ABG Hemoglobin (11.7-17.4) g/dL ABG Carboxyhemoglobin (0.5-1.5) % POC ABG HHb (Measured) (0.0-5.0) % ABG Methemoglobin (0.0-3.0) % ABG O2 Capacity (16-24) mL/dL Fer Test A-a O2 Difference mm/Hg Hgb O2 Saturation (95.0-98.0) % FiO2 % Crit Value Read Back Sodium (132-148) mmol/l Potassium (3.6-5.0) MMOL/L Chloride (98-107) mmol/L Carbon Dioxide (22-30) mmol/L Anion Gap (10-20) BUN (7-17) mg/dl Creatinine (0.7-1.2) mg/dL Est GFR ( Amer) Est GFR (Non-Af Amer) POC Glucose (mg/dL) (65-110) mg/dL Random Glucose (65-105) mg/dL Lactic Acid (0.7-2.1) MMOL/L Calcium (8.4-10.2) mg/dL Total Bilirubin (0.2-1.3) mg/dl AST (14-36) U/L ALT (9-52) U/L Alkaline Phosphatase (38-126) U/L Lactate Dehydrogenase (313-618) U/L Troponin I (0.00-0.120) ng/mL Total Protein (6.3-8.2) G/DL Albumin (3.5-5.0) g/dL Globulin (2.2-3.9) gm/dL Albumin/Globulin Ratio (1.0-2.1) Influenza Typ A,B (EIA) (NEGATIVE) Grp A Beta Strep Ag Negative (NEGATIVE) Laboratory Results - last 24 hr 02/17/17 02/17/17 02/17/17 04:00 08:25 08:30 WBC 11.0 H RBC 4.35 Hgb 14.0 Hct 42.9 MCV 98.7 MCH 32.1 H MCHC 32.5 L RDW 16.0 H Plt Count 113 L D MPV 10.0 Neut % (Auto) 76.1 H Lymph % (Auto) 12.7 L [place] % (Auto) 9.4 Eos % (Auto) 0.8 Baso % (Auto) 1.0 Neut # 8.4 H Lymph # 1.4 [place] # 1.0 H Eos # 0.1 Baso # 0.1 D-Dimer, Quantitative pCO2 pO2 HCO3 ABG pH ABG Total CO2 ABG O2 Saturation ABG O2 Content ABG Base Excess ABG Hemoglobin ABG Carboxyhemoglobin POC ABG HHb (Measured) ABG Methemoglobin ABG O2 Capacity Fer Test A-a O2 Difference Hgb O2 Saturation FiO2 Crit Value Read Back Sodium 145 Potassium 4.3 Chloride 109 H Carbon Dioxide 24 Anion Gap 16 BUN 22 H Creatinine 0.7 Est GFR ( Amer) > 60 Est GFR (Non-Af Amer) > 60 POC Glucose (mg/dL) Random Glucose 99 Lactic Acid 1.2 Calcium 8.8 Total Bilirubin 1.5 H AST 121 H ALT 171 H Alkaline Phosphatase 94 Lactate Dehydrogenase Troponin I Total Protein 6.2 L Albumin 3.2 L Globulin 3.0 Albumin/Globulin Ratio 1.1 Influenza Typ A,B (EIA) Grp A Beta Strep Ag Negative 02/17/17 02/17/17 02/17/17 09:54 10:13 10:25 WBC RBC Hgb Hct MCV MCH MCHC RDW Plt Count MPV Neut % (Auto) Lymph % (Auto) [place] % (Auto) Eos % (Auto) Baso % (Auto) Neut # Lymph # [place] # Eos # Baso # D-Dimer, Quantitative pCO2 pO2 HCO3 ABG pH ABG Total CO2 ABG O2 Saturation ABG O2 Content ABG Base Excess ABG Hemoglobin ABG Carboxyhemoglobin POC ABG HHb (Measured) ABG Methemoglobin ABG O2 Capacity Fer Test A-a O2 Difference Hgb O2 Saturation FiO2 Crit Value Read Back Sodium Potassium Chloride Carbon Dioxide Anion Gap BUN Creatinine Est GFR ( Amer) Est GFR (Non-Af Amer) POC Glucose (mg/dL) 195 H 200 H Random Glucose Lactic Acid Calcium Total Bilirubin AST ALT Alkaline Phosphatase Lactate Dehydrogenase Troponin I 0.0230 Total Protein Albumin Globulin Albumin/Globulin Ratio Influenza Typ A,B (EIA) Grp A Beta Strep Ag 02/17/17 02/17/17 02/17/17 10:30 10:46 11:30 WBC RBC Hgb Hct MCV MCH MCHC RDW Plt Count MPV Neut % (Auto) Lymph % (Auto) [place] % (Auto) Eos % (Auto) Baso % (Auto) Neut # Lymph # [place] # Eos # Baso # D-Dimer, Quantitative 2.14 H pCO2 50 H pO2 97 HCO3 24.2 ABG pH 7.32 L ABG Total CO2 27.3 ABG O2 Saturation 99.0 H ABG O2 Content 17.7 ABG Base Excess -0.9 ABG Hemoglobin 13.0 ABG Carboxyhemoglobin 2.3 H POC ABG HHb (Measured) 1.0 ABG Methemoglobin 0.7 ABG O2 Capacity 17.9 Fer Test Yes A-a O2 Difference 40.0 Hgb O2 Saturation 96.1 FiO2 28.0 Crit Value Read Back y Sodium Potassium Chloride Carbon Dioxide Anion Gap BUN Creatinine Est GFR ( Amer) Est GFR (Non-Af Amer) POC Glucose (mg/dL) Random Glucose Lactic Acid Calcium Total Bilirubin AST ALT Alkaline Phosphatase Lactate Dehydrogenase 760 H Troponin I Total Protein Albumin Globulin Albumin/Globulin Ratio Influenza Typ A,B (EIA) Grp A Beta Strep Ag 02/17/17 12:46 WBC RBC Hgb Hct MCV MCH MCHC RDW Plt Count MPV Neut % (Auto) Lymph % (Auto) [place] % (Auto) Eos % (Auto) Baso % (Auto) Neut # Lymph # [place] # Eos # Baso # D-Dimer, Quantitative pCO2 pO2 HCO3 ABG pH ABG Total CO2 ABG O2 Saturation ABG O2 Content ABG Base Excess ABG Hemoglobin ABG Carboxyhemoglobin POC ABG HHb (Measured) ABG Methemoglobin ABG O2 Capacity Fer Test A-a O2 Difference Hgb O2 Saturation FiO2 Crit Value Read Back Sodium Potassium Chloride Carbon Dioxide Anion Gap BUN Creatinine Est GFR ( Amer) Est GFR (Non-Af Amer) POC Glucose (mg/dL) Random Glucose Lactic Acid Calcium Total Bilirubin AST ALT Alkaline Phosphatase Lactate Dehydrogenase Troponin I Total Protein Albumin Globulin Albumin/Globulin Ratio Influenza Typ A,B (EIA) Negative for flu a/b Grp A Beta Strep Ag EKG/Cardiology Studies: Cardiology / EKG Studies 02/17/17 ELECTROCARDIOGRAM Stat Comment: Mode Of Transportation: Reason For Exam: chest pain Fingerstick Blood Sugar Results: 104 Review of Systems - Review of Systems Review of Systems: 12 ROS discussed with patient and found to be negative. Assessment/Plan - Assessment and Plan (Free Text) Assessment: 71 y.o. female with PMHx of CAD, GA approximatley 3 years ago s/p Cardiac Cath but with no stent placement), HTN, Hypothyroidism, and Rheumatoid Arthritis with acute onset shortness of breath Acute onset Shortness of breath in the setting of elevated D-Dimer and Hypotension a-CT angiogram- Shows no signs of Pulmonary embolism b-Continue Oxygen via 2L NC c-Order Echochocardiogram- F/U results CAD/Hx of GA- Troponin WNL .0230, No acute changes on EKG a- Continue medical mangement Sepsis = SIRS Critera - BP 82/67 RR-30 + Possible Pneumonia a- Continue with Azithromycin b- Continue with Vancomycin c- Continue with Zosyn Leucocytosis- 11 a- Continue with Azithromycin b- Continue with Vancomycin c- Continue with Zosyn d- F/U BCx, Throat Cx, Mycoplasma antibody, Legionella antibody HTN- Well controlled a- Hold Losartan 25mg Hypothyroidism a- C/W Levothyroxine 75mcg daily Rheumatodi arthritis a- Hold Xeljanz b- Hold Methotrexate Diet a- heart healthy DVT prophylaxis a- Lovenox 40mg sc <KathiafAntonino M - Last Filed: 02/17/17 18:52> CCU Objective - Vital Signs / Intake & Output Vital Signs (Last 4 hours): Vital Signs Temp Pulse Resp BP Pulse Ox 02/17/17 16:00 98.3 F 92 H 16 92/48 L 96 Intake and Output (Last 8hrs): Intake & Output 02/17/17 02/17/17 02/17/17 06:59 14:59 22:59 Intake Total 840 200 Balance 840 200 Weight 187 lb Intake: IV 600 200 Oral 240 Other: # Voids Urine, Voided 1 # Bowel Movements 1 - Medications Active Medications: Active Medications Generic Name Dose Route Start Last Admin Trade Name Freq PRN Reason Stop Dose Admin Enoxaparin Sodium 40 mg 02/18/17 09:00 Lovenox SC DAILY [facility] Protocol Vancomycin HCl 1 gm/ Sodium 250 mls @ 166.667 mls/hr 02/17/17 10:30 02/17/17 13 :31 Chloride IVPB 166.667 mls/hr Q12 NOEL Administration Azithromycin 500 mg/ Sodium 250 mls @ 250 mls/hr 02/17/17 17:00 02/17/17 17:20 Chloride IVPB 02/20/17 17:01 250 mls/hr DAILY NOEL Administration Piperacillin Sod/Tazobactam 100 mls @ 100 mls/hr 02/17/17 16:00 02/17/17 16:36 Sod 3.375 gm/ Sodium Chloride IVPB 100 mls/hr Q6 NOLE Administration Levothyroxine Sodium 50 mcg 02/18/17 06:30 Synthroid PO DAILY@0630 NOEL Morphine Sulfate 2 mg 02/17/17 10:27 Morphine IVP Q6 PRN Pain, severe (8-10) - Patient Studies Lab Studies: Lab Studies 02/17/17 02/17/17 02/17/17 Range/Units 12:46 11:30 10:46 WBC (4.8-10.8) K/uL RBC (3.80-5.20) Mil/uL Hgb (12.0-16.0) g/dL Hct (34.0-47.0) % MCV (81.0-99.0) fl MCH (27.0-31.0) pg MCHC (33.0-37.0) g/dL RDW (11.5-14.5) % Plt Count (130-400) K/uL MPV (7.2-11.7) fl Neut % (Auto) (50.0-75.0) % Lymph % (Auto) (20.0-40.0) % [place] % (Auto) (0.0-10.0) % Eos % (Auto) (0.0-4.0) % Baso % (Auto) (0.0-2.0) % Neut # (1.8-7.0) K/uL Lymph # (1.0-4.3) K/uL [place] # (0.0-0.8) K/uL Eos # (0.0-0.7) K/uL Baso # (0.0-0.2) K/uL D-Dimer, Quantitative 2.14 H (0-0.50) mg/L FEU pCO2 (35-45) mm/Hg pO2 (80-100) mm/Hg HCO3 (21-28) mmol/L ABG pH (7.35-7.45) ABG Total CO2 (22-28) mmol/L ABG O2 Saturation (95-98) % ABG O2 Content (15-23) ML/dL ABG Base Excess (-2.0-3.0) mmol/L ABG Hemoglobin (11.7-17.4) g/dL ABG Carboxyhemoglobin (0.5-1.5) % POC ABG HHb (Measured) (0.0-5.0) % ABG Methemoglobin (0.0-3.0) % ABG O2 Capacity (16-24) mL/dL Fer Test A-a O2 Difference mm/Hg Hgb O2 Saturation (95.0-98.0) % FiO2 % Crit Value Read Back Sodium (132-148) mmol/l Potassium (3.6-5.0) MMOL/L Chloride (98-107) mmol/L Carbon Dioxide (22-30) mmol/L Anion Gap (10-20) BUN (7-17) mg/dl Creatinine (0.7-1.2) mg/dL Est GFR ( Amer) Est GFR (Non-Af Amer) POC Glucose (mg/dL) (65-110) mg/dL Random Glucose (65-105) mg/dL Lactic Acid (0.7-2.1) MMOL/L Calcium (8.4-10.2) mg/dL Total Bilirubin (0.2-1.3) mg/dl AST (14-36) U/L ALT (9-52) U/L Alkaline Phosphatase (38-126) U/L Lactate Dehydrogenase 760 H (313-618) U/L Troponin I (0.00-0.120) ng/mL Total Protein (6.3-8.2) G/DL Albumin (3.5-5.0) g/dL Globulin (2.2-3.9) gm/dL Albumin/Globulin Ratio (1.0-2.1) Influenza Typ A,B (EIA) Negative for flu a/b (NEGATIVE) Grp A Beta Strep Ag (NEGATIVE) 02/17/17 02/17/17 02/17/17 Range/Units 10:30 10:25 10:13 WBC (4.8-10.8) K/uL RBC (3.80-5.20) Mil/uL Hgb (12.0-16.0) g/dL Hct (34.0-47.0) % MCV (81.0-99.0) fl MCH (27.0-31.0) pg MCHC (33.0-37.0) g/dL RDW (11.5-14.5) % Plt Count (130-400) K/uL MPV (7.2-11.7) fl Neut % (Auto) (50.0-75.0) % Lymph % (Auto) (20.0-40.0) % [place] % (Auto) (0.0-10.0) % Eos % (Auto) (0.0-4.0) % Baso % (Auto) (0.0-2.0) % Neut # (1.8-7.0) K/uL Lymph # (1.0-4.3) K/uL [place] # (0.0-0.8) K/uL Eos # (0.0-0.7) K/uL Baso # (0.0-0.2) K/uL D-Dimer, Quantitative (0-0.50) mg/L FEU pCO2 50 H (35-45) mm/Hg pO2 97 (80-100) mm/Hg HCO3 24.2 (21-28) mmol/L ABG pH 7.32 L (7.35-7.45) ABG Total CO2 27.3 (22-28) mmol/L ABG O2 Saturation 99.0 H (95-98) % ABG O2 Content 17.7 (15-23) ML/dL ABG Base Excess -0.9 (-2.0-3.0) mmol/L ABG Hemoglobin 13.0 (11.7-17.4) g/dL ABG Carboxyhemoglobin 2.3 H (0.5-1.5) % POC ABG HHb (Measured) 1.0 (0.0-5.0) % ABG Methemoglobin 0.7 (0.0-3.0) % ABG O2 Capacity 17.9 (16-24) mL/dL Fer Test Yes A-a O2 Difference 40.0 mm/Hg Hgb O2 Saturation 96.1 (95.0-98.0) % FiO2 28.0 % Crit Value Read Back y Sodium (132-148) mmol/l Potassium (3.6-5.0) MMOL/L Chloride (98-107) mmol/L Carbon Dioxide (22-30) mmol/L Anion Gap (10-20) BUN (7-17) mg/dl Creatinine (0.7-1.2) mg/dL Est GFR ( Amer) Est GFR (Non-Af Amer) POC Glucose (mg/dL) 200 H (65-110) mg/dL Random Glucose (65-105) mg/dL Lactic Acid (0.7-2.1) MMOL/L Calcium (8.4-10.2) mg/dL Total Bilirubin (0.2-1.3) mg/dl AST (14-36) U/L ALT (9-52) U/L Alkaline Phosphatase (38-126) U/L Lactate Dehydrogenase (313-618) U/L Troponin I 0.0230 (0.00-0.120) ng/mL Total Protein (6.3-8.2) G/DL Albumin (3.5-5.0) g/dL Globulin (2.2-3.9) gm/dL Albumin/Globulin Ratio (1.0-2.1) Influenza Typ A,B (EIA) (NEGATIVE) Grp A Beta Strep Ag (NEGATIVE) 02/17/17 02/17/17 02/17/17 Range/Units 09:54 08:30 08:25 WBC 11.0 H (4.8-10.8) K/uL RBC 4.35 (3.80-5.20) Mil/uL Hgb 14.0 (12.0-16.0) g/dL Hct 42.9 (34.0-47.0) % MCV 98.7 (81.0-99.0) fl MCH 32.1 H (27.0-31.0) pg MCHC 32.5 L (33.0-37.0) g/dL RDW 16.0 H (11.5-14.5) % Plt Count 113 L D (130-400) K/uL MPV 10.0 (7.2-11.7) fl Neut % (Auto) 76.1 H (50.0-75.0) % Lymph % (Auto) 12.7 L (20.0-40.0) % [place] % (Auto) 9.4 (0.0-10.0) % Eos % (Auto) 0.8 (0.0-4.0) % Baso % (Auto) 1.0 (0.0-2.0) % Neut # 8.4 H (1.8-7.0) K/uL Lymph # 1.4 (1.0-4.3) K/uL [place] # 1.0 H (0.0-0.8) K/uL Eos # 0.1 (0.0-0.7) K/uL Baso # 0.1 (0.0-0.2) K/uL D-Dimer, Quantitative (0-0.50) mg/L FEU pCO2 (35-45) mm/Hg pO2 (80-100) mm/Hg HCO3 (21-28) mmol/L ABG pH (7.35-7.45) ABG Total CO2 (22-28) mmol/L ABG O2 Saturation (95-98) % ABG O2 Content (15-23) ML/dL ABG Base Excess (-2.0-3.0) mmol/L ABG Hemoglobin (11.7-17.4) g/dL ABG Carboxyhemoglobin (0.5-1.5) % POC ABG HHb (Measured) (0.0-5.0) % ABG Methemoglobin (0.0-3.0) % ABG O2 Capacity (16-24) mL/dL Fer Test A-a O2 Difference mm/Hg Hgb O2 Saturation (95.0-98.0) % FiO2 % Crit Value Read Back Sodium 145 (132-148) mmol/l Potassium 4.3 (3.6-5.0) MMOL/L Chloride 109 H (98-107) mmol/L Carbon Dioxide 24 (22-30) mmol/L Anion Gap 16 (10-20) BUN 22 H (7-17) mg/dl Creatinine 0.7 (0.7-1.2) mg/dL Est GFR ( Amer) > 60 Est GFR (Non-Af Amer) > 60 POC Glucose (mg/dL) 195 H (65-110) mg/dL Random Glucose 99 (65-105) mg/dL Lactic Acid 1.2 (0.7-2.1) MMOL/L Calcium 8.8 (8.4-10.2) mg/dL Total Bilirubin 1.5 H (0.2-1.3) mg/dl AST 121 H (14-36) U/L ALT 171 H (9-52) U/L Alkaline Phosphatase 94 (38-126) U/L Lactate Dehydrogenase (313-618) U/L Troponin I (0.00-0.120) ng/mL Total Protein 6.2 L (6.3-8.2) G/DL Albumin 3.2 L (3.5-5.0) g/dL Globulin 3.0 (2.2-3.9) gm/dL Albumin/Globulin Ratio 1.1 (1.0-2.1) Influenza Typ A,B (EIA) (NEGATIVE) Grp A Beta Strep Ag (NEGATIVE) 02/17/17 Range/Units 04:00 WBC (4.8-10.8) K/uL RBC (3.80-5.20) Mil/uL Hgb (12.0-16.0) g/dL Hct (34.0-47.0) % MCV (81.0-99.0) fl MCH (27.0-31.0) pg MCHC (33.0-37.0) g/dL RDW (11.5-14.5) % Plt Count (130-400) K/uL MPV (7.2-11.7) fl Neut % (Auto) (50.0-75.0) % Lymph % (Auto) (20.0-40.0) % [place] % (Auto) (0.0-10.0) % Eos % (Auto) (0.0-4.0) % Baso % (Auto) (0.0-2.0) % Neut # (1.8-7.0) K/uL Lymph # (1.0-4.3) K/uL [place] # (0.0-0.8) K/uL Eos # (0.0-0.7) K/uL Baso # (0.0-0.2) K/uL D-Dimer, Quantitative (0-0.50) mg/L FEU pCO2 (35-45) mm/Hg pO2 (80-100) mm/Hg HCO3 (21-28) mmol/L ABG pH (7.35-7.45) ABG Total CO2 (22-28) mmol/L ABG O2 Saturation (95-98) % ABG O2 Content (15-23) ML/dL ABG Base Excess (-2.0-3.0) mmol/L ABG Hemoglobin (11.7-17.4) g/dL ABG Carboxyhemoglobin (0.5-1.5) % POC ABG HHb (Measured) (0.0-5.0) % ABG Methemoglobin (0.0-3.0) % ABG O2 Capacity (16-24) mL/dL Fer Test A-a O2 Difference mm/Hg Hgb O2 Saturation (95.0-98.0) % FiO2 % Crit Value Read Back Sodium (132-148) mmol/l Potassium (3.6-5.0) MMOL/L Chloride (98-107) mmol/L Carbon Dioxide (22-30) mmol/L Anion Gap (10-20) BUN (7-17) mg/dl Creatinine (0.7-1.2) mg/dL Est GFR ( Amer) Est GFR (Non-Af Amer) POC Glucose (mg/dL) (65-110) mg/dL Random Glucose (65-105) mg/dL Lactic Acid (0.7-2.1) MMOL/L Calcium (8.4-10.2) mg/dL Total Bilirubin (0.2-1.3) mg/dl AST (14-36) U/L ALT (9-52) U/L Alkaline Phosphatase (38-126) U/L Lactate Dehydrogenase (313-618) U/L Troponin I (0.00-0.120) ng/mL Total Protein (6.3-8.2) G/DL Albumin (3.5-5.0) g/dL Globulin (2.2-3.9) gm/dL Albumin/Globulin Ratio (1.0-2.1) Influenza Typ A,B (EIA) (NEGATIVE) Grp A Beta Strep Ag Negative (NEGATIVE) Laboratory Results - last 24 hr 02/17/17 02/17/17 02/17/17 04:00 08:25 08:30 WBC 11.0 H RBC 4.35 Hgb 14.0 Hct 42.9 MCV 98.7 MCH 32.1 H MCHC 32.5 L RDW 16.0 H Plt Count 113 L D MPV 10.0 Neut % (Auto) 76.1 H Lymph % (Auto) 12.7 L [place] % (Auto) 9.4 Eos % (Auto) 0.8 Baso % (Auto) 1.0 Neut # 8.4 H Lymph # 1.4 [place] # 1.0 H Eos # 0.1 Baso # 0.1 D-Dimer, Quantitative pCO2 pO2 HCO3 ABG pH ABG Total CO2 ABG O2 Saturation ABG O2 Content ABG Base Excess ABG Hemoglobin ABG Carboxyhemoglobin POC ABG HHb (Measured) ABG Methemoglobin ABG O2 Capacity Fer Test A-a O2 Difference Hgb O2 Saturation FiO2 Crit Value Read Back Sodium 145 Potassium 4.3 Chloride 109 H Carbon Dioxide 24 Anion Gap 16 BUN 22 H Creatinine 0.7 Est GFR ( Amer) > 60 Est GFR (Non-Af Amer) > 60 POC Glucose (mg/dL) Random Glucose 99 Lactic Acid 1.2 Calcium 8.8 Total Bilirubin 1.5 H AST 121 H ALT 171 H Alkaline Phosphatase 94 Lactate Dehydrogenase Troponin I Total Protein 6.2 L Albumin 3.2 L Globulin 3.0 Albumin/Globulin Ratio 1.1 Influenza Typ A,B (EIA) Grp A Beta Strep Ag Negative 02/17/17 02/17/17 02/17/17 09:54 10:13 10:25 WBC RBC Hgb Hct MCV MCH MCHC RDW Plt Count MPV Neut % (Auto) Lymph % (Auto) [place] % (Auto) Eos % (Auto) Baso % (Auto) Neut # Lymph # [place] # Eos # Baso # D-Dimer, Quantitative pCO2 pO2 HCO3 ABG pH ABG Total CO2 ABG O2 Saturation ABG O2 Content ABG Base Excess ABG Hemoglobin ABG Carboxyhemoglobin POC ABG HHb (Measured) ABG Methemoglobin ABG O2 Capacity Fer Test A-a O2 Difference Hgb O2 Saturation FiO2 Crit Value Read Back Sodium Potassium Chloride Carbon Dioxide Anion Gap BUN Creatinine Est GFR ( Amer) Est GFR (Non-Af Amer) POC Glucose (mg/dL) 195 H 200 H Random Glucose Lactic Acid Calcium Total Bilirubin AST ALT Alkaline Phosphatase Lactate Dehydrogenase Troponin I 0.0230 Total Protein Albumin Globulin Albumin/Globulin Ratio Influenza Typ A,B (EIA) Grp A Beta Strep Ag 02/17/17 02/17/1702/17/17 10:30 10:46 11:30 WBC RBC Hgb Hct MCV MCH MCHC RDW Plt Count MPV Neut % (Auto) Lymph % (Auto) [place] % (Auto) Eos % (Auto) Baso % (Auto) Neut # Lymph # [place] # Eos # Baso # D-Dimer, Quantitative 2.14 H pCO2 50 H pO2 97 HCO3 24.2 ABG pH 7.32 L ABG Total CO2 27.3 ABG O2 Saturation 99.0 H ABG O2 Content 17.7 ABG Base Excess -0.9 ABG Hemoglobin 13.0 ABG Carboxyhemoglobin 2.3 H POC ABG HHb (Measured) 1.0 ABG Methemoglobin 0.7 ABG O2 Capacity 17.9 Fer Test Yes A-a O2 Difference 40.0 Hgb O2 Saturation 96.1 FiO2 28.0 Crit Value Read Back y Sodium Potassium Chloride Carbon Dioxide Anion Gap BUN Creatinine Est GFR ( Amer) Est GFR (Non-Af Amer) POC Glucose (mg/dL) Random Glucose Lactic Acid Calcium Total Bilirubin AST ALT Alkaline Phosphatase Lactate Dehydrogenase 760 H Troponin I Total Protein Albumin Globulin Albumin/Globulin Ratio Influenza Typ A,B (EIA) Grp A Beta Strep Ag 02/17/17 12:46 WBC RBC Hgb Hct MCV MCH MCHC RDW Plt Count MPV Neut % (Auto) Lymph % (Auto) [place] % (Auto) Eos % (Auto) Baso % (Auto) Neut # Lymph # [place] # Eos # Baso # D-Dimer, Quantitative pCO2 pO2 HCO3 ABG pH ABG Total CO2 ABG O2 Saturation ABG O2 Content ABG Base Excess ABG Hemoglobin ABG Carboxyhemoglobin POC ABG HHb (Measured) ABG Methemoglobin ABG O2 Capacity Fer Test A-a O2 Difference Hgb O2 Saturation FiO2 Crit Value Read Back Sodium Potassium Chloride Carbon Dioxide Anion Gap BUN Creatinine Est GFR ( Amer) Est GFR (Non-Af Amer) POC Glucose (mg/dL) Random Glucose Lactic Acid Calcium Total Bilirubin AST ALT Alkaline Phosphatase Lactate Dehydrogenase Troponin I Total Protein Albumin Globulin Albumin/Globulin Ratio Influenza Typ A,B (EIA) Negative for flu a/b Grp A Beta Strep Ag EKG/Cardiology Studies: Cardiology / EKG Studies 02/17/17 ELECTROCARDIOGRAM Stat Comment: Mode Of Transportation: Reason For Exam: chest pain Attending/Attestation - Attestation I have personally seen and examined this patient.: Yes I have fully participated in the care of the patient.: Yes I have reviewed all pertinent clinical information: Yes Notes (Text): 02/17/17 18:51 Today: Friday, February 17, 2017 The Patient was seen and examined at the bedside, Medical records reviewed, all clinical/lab/hemodynamic/radiographic data were reviewed and management issues were discussed and formulated, Events reviewed Pain issues, skin care, head of the bed elevation, GI/DVT prophylaxis, glycemic control were addressed. Agree with above treatment plans as transcribed in Dr. Kaur note
[2017-02-17] MEDS ORDERED: Sodium Chloride 0.9% 1,000 ML IV SCH (19:30)
--- NOTE | 2017-02-17 19:45 | CARD ---
APPROVED REPORT EKG Measurement Heart [id number] [id number] <Conclusion> Sinus tachycardia Possible Left atrial enlargement Nonspecific intraventricular block Possible Lateral infarct, age undetermined Abnormal ECG
[2017-02-17 21:21] LABS: BASO # 0.1 K/uL (0.0-0.2); BASO % 0.8 % (0.0-2.0); EOS # 0.2 K/uL (0.0-0.7); EOS % 1.4 % (0.0-4.0); HEMATOCRIT 43.2 % (34.0-47.0); LYMPH # 1.4 K/uL (1.0-4.3); LYMPH % 12.5 % (20.0-40.0); MEAN CELL VOLUME 99.3 fl (81.0-99.0); MEAN CORPUSCULAR HEMOGLOBIN 31.1 pg (27.0-31.0); MEAN CORPUSCULAR HGB CONC 31.3 g/dL (33.0-37.0); MEAN PLATELET VOLUME 10.1 fl (7.2-11.7); MONO % 9.2 % (0.0-10.0); NEUT # 8.4 K/uL (1.8-7.0); NEUT % 76.1 % (50.0-75.0); NRBC % 0.2 % (0.0-0.0); RED CELL DISTRIBUTION WIDTH 16.4 % (11.5-14.5); WHITE BLOOD COUNT 11.1 K/uL (4.8-10.8)
[2017-02-17 21:29] LABS: ALB/GLOB RATIO 1.1 (1.0-2.1); ALKALINE PHOSPHATASE 103 U/L (38-126); ALT/SGPT 184 U/L (9-52); AST/SGOT 134 U/L (14-36); BILIRUBIN,TOTAL 1.4 mg/dl (0.2-1.3); BLOOD UREA NITROGEN 23 mg/dl (7-17); CALCIUM 8.3 mg/dL (8.4-10.2); CARBON DIOXIDE 20 mmol/L (22-30); CHLORIDE 110 mmol/L (98-107); GFR AFRICAN-AMERICAN > 60; GLUCOSE,RANDOM 140 mg/dL (65-105); POTASSIUM 4.3 MMOL/L (3.6-5.0); SODIUM 145 mmol/l (132-148); TOTAL PROTEIN 5.9 G/DL (6.3-8.2)
[2017-02-17 21:41] LABS: PARTIAL THROMBOPLASTIN TIME 25.3 SECONDS (23.3-32.5)
[2017-02-18] MEDS: Piperacillin/Tazobact 3.375 GM in Sodium Chloride 0.9% 100 ML IVPB SCH ×4 (03:29→21:29)
[2017-02-18 05:34] LABS: ALKALINE PHOSPHATASE 83 U/L (38-126); ALT/SGPT 177 U/L (9-52); AST/SGOT 126 U/L (14-36); BILIRUBIN,TOTAL 1.1 mg/dl (0.2-1.3); BLOOD UREA NITROGEN 22 mg/dl (7-17); CARBON DIOXIDE 27 mmol/L (22-30); CHLORIDE 109 mmol/L (98-107); GFR AFRICAN-AMERICAN > 60; GLUCOSE,RANDOM 88 mg/dL (65-105); POTASSIUM 4.1 MMOL/L (3.6-5.0); SODIUM 148 mmol/l (132-148); TOTAL PROTEIN 5.6 G/DL (6.3-8.2)
[2017-02-18] MEDS: Levothyroxine 50 MCG TAB PO SCH (05:39)
[2017-02-18 06:45] LABS: HEMATOCRIT 40.3 % (34.0-47.0); MEAN CELL VOLUME 99.8 fl (81.0-99.0); MEAN CORPUSCULAR HEMOGLOBIN 31.6 pg (27.0-31.0); MEAN CORPUSCULAR HGB CONC 31.6 g/dL (33.0-37.0); RED CELL DISTRIBUTION WIDTH 16.2 % (11.5-14.5); WHITE BLOOD COUNT 10.1 K/uL (4.8-10.8)
--- NOTE | 2017-02-18 07:46 | CP.PCM.PN ---
Subjective - Date & Time of Evaluation Date of Evaluation: 02/18/17 Time of Evaluation: 07:00 - Subjective Subjective: pt seen and examined at bedside this morning with Dr. Barreto. Pt lying in bed comfortably in [facility]. Pt had an uneventful overnight. Pt reports improvement in SOB since yesterday. Denies new complaints. Denies fever/chills, headaches, changes in vision, chest pain, N/V/D/C, urinary symptoms, leg pain, numbness/ tingling. Objective - Vital Signs/Intake and Output Vital Signs (last 24 hours): Temp Pulse Resp BP Pulse Ox 97.5 F L 77 24 103/73 98 02/18/17 04:00 02/18/17 06:00 02/18/17 06:00 02/18/17 06:00 02/18/17 06:00 Intake and Output: 02/18/17 02/18/17 06:59 18:59 Intake Total 718 Output Total 150 Balance 568 - Medications Medications: Current Medications Enoxaparin Sodium (Lovenox) 40 mg SC DAILY NOEL PRN Reason: Protocol Vancomycin HCl 1 gm/ Sodium (Chloride) 250 mls @ 166.667 mls/hr IVPB Q12 [facility] Last Admin: 02/17/17 23:00 Dose: 166.667 mls/hr Azithromycin 500 mg/ Sodium (Chloride) 250 mls @ 250 mls/hr IVPB DAILY [facility] Stop: 02/20/17 17:01 Last Admin: 02/17/17 17:20 Dose: 250 mls/hr Piperacillin Sod/Tazobactam (Sod 3.375 gm/ Sodium Chloride) 100 mls @ 100 mls/ hr IVPB Q6 [facility] Last Admin: 02/18/17 03:29 Dose: 100 mls/hr Levothyroxine Sodium (Synthroid) 50 mcg PO DAILY@0630 [facility] Last Admin: 02/18/17 05:39 Dose: 50 mcg Morphine Sulfate (Morphine) 2 mg IVP Q6 PRN PRN Reason: Pain, severe (8-10) - Labs Labs: 02/18/17 04:20 02/18/17 04:20 PT 12.9 SECONDS (9.6-11.2) H 02/17/17 20:45 INR 1.24 (0.92-1.08) H 02/17/17 20:45 APTT 25.3 SECONDS (23.3-32.5) 02/17/17 20:45 - Constitutional Appears: Non-toxic, No Acute Distress - Eye Exam Eye Exam: EOMI. absent: Conjunctival injection, Scleral icterus Pupil Exam: PERRL - ENT Exam ENT Exam: Mucous Membranes Moist - Respiratory Exam Respiratory Exam: Clear to Ausculation Bilateral, NORMAL BREATHING PATTERN. absent: Rales, Rhonchi, Wheezes - Cardiovascular Exam Cardiovascular Exam: REGULAR RHYTHM, RRR, +S1, +S2. absent: Gallop, JVD, Rubs, Murmur - GI/Abdominal Exam GI & Abdominal Exam: Soft, Normal Bowel Sounds. absent: Distended, Firm, Guarding, Rigid, Tenderness, Rebound - Extremities Exam Extremities Exam: Full ROM, Normal Inspection, Pedal Edema. absent: Calf Tenderness, Tenderness - Neurological Exam Neurological Exam: Alert, Awake, Oriented x3 Assessment and Plan - Assessment and Plan (Free Text) Assessment: 71 y/o F with PMH of CAD, [place] (3 years ago s/p cardiac cath but no stent placement), HTN, RA and hypothyroidism admitted due for SOB due to systolic heart failure exacerbation and sepsis. Systolic Heart Failure Exacerbation EKG: LBBB (none prior available for comparison) ProBNP: 7950 (down from [id number]) Troponin I: negative x2 Lasix 40 IV daily ECHO: LVEF of 10-15%, severe left ventricular dilation, moderate left atrial dilation, moderate-severe mitral and tricuspid regurg. Vp Care Management: Dr. Palacio, currently have Dr. Magdaleno on board, who recommends IV fluids, holding home antihypertensive medications, and ordering ECHO. daily weight check: 189 lbs CXR: mild pulmonary vascular congestion with questionable small left pleural effusion, cardiomegaly. Chest CT: no evidence of PE, moderate cardiomegaly, nonspecific groundglass opacities in lungs likely due to pulmonary congestion. Small right and left pleural effusions. 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 Palacio will follow up with pt for possible outpatient ICD implant Sepsis Pneumonia with Bilateral Pleural Effusions Abx day #1 -afebrile -WBC: 10.1 (on 02/18) -IV Vancomycin 1 gm q12: Vanco trough for 22:00 on 02/18 -IV Zosyn 3.375gm q6 -Azithromycin PO 250mg Q daily -Blood Cultures: no growth after 24 hours -throat cultures negative -Legionella AB Panel: pending -Mycoplasma IgM: pending -M. Pneumoniae AB: pending HTN, controlled -hold Losartan (as per cardiology recommendation) Hypothyroidism chronic, controlled c/w home med synthroid Rheumatoid Arthritis chronic, controlled -hold meds DVT Prophylaxis Lovenox 40 SC daily
--- NOTE | 2017-02-18 07:56 | CP.CCUPN ---
<Chino Kaur - Last Filed: 02/18/17 09:48> CCU Subjective - Physician Review Events Since Last Encounter (Free Text): Pt. examined at bedside resting comfortably without any complaints. Pt. had an uneventful overnight and reports a good night rest. 02/18/17 08:56 CCU Objective - Vital Signs / Intake & Output Vital Signs (Last 4 hours): Vital Signs Temp Pulse Resp BP Pulse Ox 02/18/17 06:00 77 24 103/73 98 02/18/17 04:00 97.5 F L 81 24 101/64 97 Intake and Output (Last 8hrs): Intake & Output 02/17/17 02/18/17 02/18/17 22:59 06:59 14:59 Intake Total 460 458 Output Total 150 Balance 460 308 Weight 189 lb 8 oz Intake: IV 300 8 Intake, Piggyback 100 350 Oral 60 100 Output: Urine 150 Urine, Voided 150 Other: # Voids Urine, Voided 1 # Bowel Movements 1 - Physical Exam Head: Positive for: Atraumatic, Normocephalic Respiratory/Chest: Positive for: Good Air Exchange, Other (scattered bi-basilar rhonchi). Negative for: Respiratory Distress, Accessory Muscle Use Cardiovascular: Positive for: Normal S1, S2 (+Syltolic murmur appreciated, + JVD ) Abdomen: Negative for: Tenderness Lower Extremity: Positive for: Edema. Negative for: CALF TENDERNESS Skin: Positive for: Warm, Dry - Medications Active Medications: Active Medications Generic Name Dose Route Start Last Admin Trade Name Freq PRN Reason Stop Dose Admin Enoxaparin Sodium 40 mg 02/18/17 09:00 Lovenox SC DAILY NOEL Protocol Vancomycin HCl 1 gm/ Sodium 250 mls @ 166.667 mls/hr 02/17/17 10:30 02/17/17 23 :00 Chloride IVPB 166.667 mls/hr Q12 NOEL Administration Azithromycin 500 mg/ Sodium 250 mls @ 250 mls/hr 02/17/17 17:00 02/17/17 17:20 Chloride IVPB 02/20/17 17:01 250 mls/hr DAILY NOEL Administration Piperacillin Sod/Tazobactam 100 mls @ 100 mls/hr 02/17/17 16:00 02/18/17 03:29 Sod 3.375 gm/ Sodium Chloride IVPB 100 mls/hr Q6 NOEL Administration Levothyroxine Sodium 50 mcg 02/18/17 06:30 02/18/17 05:39 Synthroid PO 50 mcg DAILY@0630 NOEL Administration Morphine Sulfate 2 mg 02/17/17 10:27 Morphine IVP Q6 PRN Pain, severe (8-10) - Patient Studies Lab Studies: Lab Studies 02/18/17 02/17/17 02/17/17 Range/Units 04:20 20:45 19:40 WBC 10.1 11.1 H (4.8-10.8) K/uL RBC 4.04 4.35 (3.80-5.20) Mil/uL Hgb 12.8 13.5 (12.0-16.0) g/dL Hct 40.3 43.2 (34.0-47.0) % MCV 99.8 H 99.3 H (81.0-99.0) fl MCH 31.6 H 31.1 H (27.0-31.0) pg MCHC 31.6 L 31.3 L (33.0-37.0) g/dL RDW 16.2 H 16.4 H (11.5-14.5) % Plt Count 177 208 (130-400) K/uL MPV 10.1 (7.2-11.7) fl Neut % (Auto) 76.1 H (50.0-75.0) % Lymph % (Auto) 12.5 L (20.0-40.0) % Traverse % (Auto) 9.2 (0.0-10.0) % Eos % (Auto) 1.4 (0.0-4.0) % Baso % (Auto) 0.8 (0.0-2.0) % Neut # 8.4 H (1.8-7.0) K/uL Lymph # 1.4 (1.0-4.3) K/uL Traverse # 1.0 H (0.0-0.8) K/uL Eos # 0.2 (0.0-0.7) K/uL Baso # 0.1 (0.0-0.2) K/uL PT 12.9 H (9.6-11.2) SECONDS INR 1.24 H (0.92-1.08) APTT 25.3 (23.3-32.5) SECONDS D-Dimer, Quantitative (0-0.50) mg/L FEU pCO2 (35-45) mm/Hg pO2 (80-100) mm/Hg HCO3 (21-28) mmol/L ABG pH (7.35-7.45) ABG Total CO2 (22-28) mmol/L ABG O2 Saturation (95-98) % ABG O2 Content (15-23) ML/dL ABG Base Excess (-2.0-3.0) mmol/L ABG Hemoglobin (11.7-17.4) g/dL ABG Carboxyhemoglobin (0.5-1.5) % POC ABG HHb (Measured) (0.0-5.0) % ABG Methemoglobin (0.0-3.0) % ABG O2 Capacity (16-24) mL/dL Fer Test A-a O2 Difference mm/Hg Hgb O2 Saturation (95.0-98.0) % FiO2 % Crit Value Read Back Sodium 148 145 (132-148) mmol/l Potassium 4.1 4.3 (3.6-5.0) MMOL/L Chloride 109 H 110 H (98-107) mmol/L Carbon Dioxide 27 20 L (22-30) mmol/L Anion Gap 16 19 (10-20) BUN 22 H 23 H (7-17) mg/dl Creatinine 0.9 0.9 (0.7-1.2) mg/dL Est GFR ( Amer) > 60 > 60 Est GFR (Non-Af Amer) > 60 > 60 POC Glucose (mg/dL) 133 H (65-110) mg/dL Random Glucose 88 140 H (65-105) mg/dL Lactic Acid (0.7-2.1) MMOL/L Calcium 8.0 L 8.3 L (8.4-10.2) mg/dL Total Bilirubin 1.1 1.4 H (0.2-1.3) mg/dl AST 126 H 134 H (14-36) U/L ALT 177 H 184 H (9-52) U/L Alkaline Phosphatase 83 103 (38-126) U/L Lactate Dehydrogenase (313-618) U/L Troponin I < 0.0120 (0.00-0.120) ng/mL NT-Pro-B Natriuret Pep 7950 H (0-900) pg/ml Total Protein 5.6 L 5.9 L (6.3-8.2) G/DL Albumin 2.8 L 3.1 L (3.5-5.0) g/dL Globulin 2.8 2.8 (2.2-3.9) gm/dL Albumin/Globulin Ratio 1.0 1.1 (1.0-2.1) Influenza Typ A,B (EIA) (NEGATIVE) 02/17/17 02/17/17 02/17/17 Range/Units 12:46 11:30 10:46 WBC (4.8-10.8) K/uL RBC (3.80-5.20) Mil/uL Hgb (12.0-16.0) g/dL Hct (34.0-47.0) % MCV (81.0-99.0) fl MCH (27.0-31.0) pg MCHC (33.0-37.0) g/dL RDW (11.5-14.5) % Plt Count (130-400) K/uL MPV (7.2-11.7) fl Neut % (Auto) (50.0-75.0) % Lymph % (Auto) (20.0-40.0) % Traverse % (Auto) (0.0-10.0) % Eos % (Auto) (0.0-4.0) % Baso % (Auto) (0.0-2.0) % Neut # (1.8-7.0) K/uL Lymph # (1.0-4.3) K/uL Traverse # (0.0-0.8) K/uL Eos # (0.0-0.7) K/uL Baso # (0.0-0.2) K/uL PT (9.6-11.2) SECONDS INR (0.92-1.08) APTT (23.3-32.5) SECONDS D-Dimer, Quantitative 2.14 H (0-0.50) mg/L FEU pCO2 (35-45) mm/Hg pO2 (80-100) mm/Hg HCO3 (21-28) mmol/L ABG pH (7.35-7.45) ABG Total CO2 (22-28) mmol/L ABG O2 Saturation (95-98) % ABG O2 Content (15-23) ML/dL ABG Base Excess (-2.0-3.0) mmol/L ABG Hemoglobin (11.7-17.4) g/dL ABG Carboxyhemoglobin (0.5-1.5) % POC ABG HHb (Measured) (0.0-5.0) % ABG Methemoglobin (0.0-3.0) % ABG O2 Capacity (16-24) mL/dL Fer Test A-a O2 Difference mm/Hg Hgb O2 Saturation (95.0-98.0) % FiO2 % Crit Value Read Back Sodium (132-148) mmol/l Potassium (3.6-5.0) MMOL/L Chloride (98-107) mmol/L Carbon Dioxide (22-30) mmol/L Anion Gap (10-20) BUN (7-17) mg/dl Creatinine (0.7-1.2) mg/dL Est GFR ( Amer) Est GFR (Non-Af Amer) POC Glucose (mg/dL) (65-110) mg/dL Random Glucose (65-105) mg/dL Lactic Acid (0.7-2.1) MMOL/L Calcium (8.4-10.2) mg/dL Total Bilirubin (0.2-1.3) mg/dl AST (14-36) U/L ALT (9-52) U/L Alkaline Phosphatase (38-126) U/L Lactate Dehydrogenase 760 H (313-618) U/L Troponin I (0.00-0.120) ng/mL NT-Pro-B Natriuret Pep (0-900) pg/ml Total Protein (6.3-8.2) G/DL Albumin (3.5-5.0) g/dL Globulin (2.2-3.9) gm/dL Albumin/Globulin Ratio (1.0-2.1) Influenza Typ A,B (EIA) Negative for flu a/b (NEGATIVE) 02/17/17 02/17/17 02/17/17 Range/Units 10:30 10:25 10:13 WBC (4.8-10.8) K/uL RBC (3.80-5.20) Mil/uL Hgb (12.0-16.0) g/dL Hct (34.0-47.0) % MCV (81.0-99.0) fl MCH (27.0-31.0) pg MCHC (33.0-37.0) g/dL RDW (11.5-14.5) % Plt Count (130-400) K/uL MPV (7.2-11.7) fl Neut % (Auto) (50.0-75.0) % Lymph % (Auto) (20.0-40.0) % Traverse % (Auto) (0.0-10.0) % Eos % (Auto) (0.0-4.0) % Baso % (Auto) (0.0-2.0) % Neut # (1.8-7.0) K/uL Lymph # (1.0-4.3) K/uL Traverse # (0.0-0.8) K/uL Eos # (0.0-0.7) K/uL Baso # (0.0-0.2) K/uL PT (9.6-11.2) SECONDS INR (0.92-1.08) APTT (23.3-32.5) SECONDS D-Dimer, Quantitative (0-0.50) mg/L FEU pCO2 50 H (35-45) mm/Hg pO2 97 (80-100) mm/Hg HCO3 24.2 (21-28) mmol/L ABG pH 7.32 L (7.35-7.45) ABG Total CO2 27.3 (22-28) mmol/L ABG O2 Saturation 99.0 H (95-98) % ABG O2 Content 17.7 (15-23) ML/dL ABG Base Excess -0.9 (-2.0-3.0) mmol/L ABG Hemoglobin 13.0 (11.7-17.4) g/dL ABG Carboxyhemoglobin 2.3 H (0.5-1.5) % POC ABG HHb (Measured) 1.0 (0.0-5.0) % ABG Methemoglobin 0.7 (0.0-3.0) % ABG O2 Capacity 17.9 (16-24) mL/dL Fer Test Yes A-a O2 Difference 40.0 mm/Hg Hgb O2 Saturation 96.1 (95.0-98.0) % FiO2 28.0 % Crit Value Read Back y Sodium (132-148) mmol/l Potassium (3.6-5.0) MMOL/L Chloride (98-107) mmol/L Carbon Dioxide (22-30) mmol/L Anion Gap (10-20) BUN (7-17) mg/dl Creatinine (0.7-1.2) mg/dL Est GFR ( Amer) Est GFR (Non-Af Amer) POC Glucose (mg/dL) 200 H (65-110) mg/dL Random Glucose (65-105) mg/dL Lactic Acid (0.7-2.1) MMOL/L Calcium (8.4-10.2) mg/dL Total Bilirubin (0.2-1.3) mg/dl AST (14-36) U/L ALT (9-52) U/L Alkaline Phosphatase (38-126) U/L Lactate Dehydrogenase (313-618) U/L Troponin I 0.0230 (0.00-0.120) ng/mL NT-Pro-B Natriuret Pep (0-900) pg/ml Total Protein (6.3-8.2) G/DL Albumin (3.5-5.0) g/dL Globulin (2.2-3.9) gm/dL Albumin/Globulin Ratio (1.0-2.1) Influenza Typ A,B (EIA) (NEGATIVE) 02/17/17 02/17/17 02/17/17 Range/Units 09:54 08:30 08:25 WBC 11.0 H (4.8-10.8) K/uL RBC 4.35 (3.80-5.20) Mil/uL Hgb 14.0 (12.0-16.0) g/dL Hct 42.9 (34.0-47.0) % MCV 98.7 (81.0-99.0) fl MCH 32.1 H (27.0-31.0) pg MCHC 32.5 L (33.0-37.0) g/dL RDW 16.0 H (11.5-14.5) % Plt Count 113 L D (130-400) K/uL MPV 10.0 (7.2-11.7) fl Neut % (Auto) 76.1 H (50.0-75.0) % Lymph % (Auto) 12.7 L (20.0-40.0) % Traverse % (Auto) 9.4 (0.0-10.0) % Eos % (Auto) 0.8 (0.0-4.0) % Baso % (Auto) 1.0 (0.0-2.0) % Neut # 8.4 H (1.8-7.0) K/uL Lymph # 1.4 (1.0-4.3) K/uL Traverse # 1.0 H (0.0-0.8) K/uL Eos # 0.1 (0.0-0.7) K/uL Baso # 0.1 (0.0-0.2) K/uL PT (9.6-11.2) SECONDS INR (0.92-1.08) APTT (23.3-32.5) SECONDS D-Dimer, Quantitative (0-0.50) mg/L FEU pCO2 (35-45) mm/Hg pO2 (80-100) mm/Hg HCO3 (21-28) mmol/L ABG pH (7.35-7.45) ABG Total CO2 (22-28) mmol/L ABG O2 Saturation (95-98) % ABG O2 Content (15-23) ML/dL ABG Base Excess (-2.0-3.0) mmol/L ABG Hemoglobin (11.7-17.4) g/dL ABG Carboxyhemoglobin (0.5-1.5) % POC ABG HHb (Measured) (0.0-5.0) % ABG Methemoglobin (0.0-3.0) % ABG O2 Capacity (16-24) mL/dL Fer Test A-a O2 Difference mm/Hg Hgb O2 Saturation (95.0-98.0) % FiO2 % Crit Value Read Back Sodium 145 (132-148) mmol/l Potassium 4.3 (3.6-5.0) MMOL/L Chloride 109 H (98-107) mmol/L Carbon Dioxide 24 (22-30) mmol/L Anion Gap 16 (10-20) BUN 22 H (7-17) mg/dl Creatinine 0.7 (0.7-1.2) mg/dL Est GFR ( Amer) > 60 Est GFR (Non-Af Amer) > 60 POC Glucose (mg/dL) 195 H (65-110) mg/dL Random Glucose 99 (65-105) mg/dL Lactic Acid 1.2 (0.7-2.1) MMOL/L Calcium 8.8 (8.4-10.2) mg/dL Total Bilirubin 1.5 H (0.2-1.3) mg/dl AST 121 H (14-36) U/L ALT 171 H (9-52) U/L Alkaline Phosphatase 94 (38-126) U/L Lactate Dehydrogenase (313-618) U/L Troponin I (0.00-0.120) ng/mL NT-Pro-B Natriuret Pep (0-900) pg/ml Total Protein 6.2 L (6.3-8.2) G/DL Albumin 3.2 L (3.5-5.0) g/dL Globulin 3.0 (2.2-3.9) gm/dL Albumin/Globulin Ratio 1.1 (1.0-2.1) Influenza Typ A,B (EIA) (NEGATIVE) Laboratory Results - last 24 hr 02/17/17 02/17/17 02/17/17 08:25 08:30 09:54 WBC 11.0 H RBC 4.35 Hgb 14.0 Hct 42.9 MCV 98.7 MCH 32.1 H MCHC 32.5 L RDW 16.0 H Plt Count 113 L D MPV 10.0 Neut % (Auto) 76.1 H Lymph % (Auto) 12.7 L Traverse % (Auto) 9.4 Eos % (Auto) 0.8 Baso % (Auto) 1.0 Neut # 8.4 H Lymph # 1.4 Traverse # 1.0 H Eos # 0.1 Baso # 0.1 PT INR APTT D-Dimer, Quantitative pCO2 pO2 HCO3 ABG pH ABG Total CO2 ABG O2 Saturation ABG O2 Content ABG Base Excess ABG Hemoglobin ABG Carboxyhemoglobin POC ABG HHb (Measured) ABG Methemoglobin ABG O2 Capacity Fer Test A-a O2 Difference Hgb O2 Saturation FiO2 Crit Value Read Back Sodium 145 Potassium 4.3 Chloride 109 H Carbon Dioxide 24 Anion Gap 16 BUN 22 H Creatinine 0.7 Est GFR ( Amer) > 60 Est GFR (Non-Af Amer) > 60 POC Glucose (mg/dL) 195 H Random Glucose 99 Lactic Acid 1.2 Calcium 8.8 Total Bilirubin 1.5 H AST 121 H ALT 171 H Alkaline Phosphatase 94 Lactate Dehydrogenase Troponin I NT-Pro-B Natriuret Pep Total Protein 6.2 L Albumin 3.2 L Globulin 3.0 Albumin/Globulin Ratio 1.1 Influenza Typ A,B (EIA) 02/17/17 02/17/17 02/17/17 10:13 10:25 10:30 WBC RBC Hgb Hct MCV MCH MCHC RDW Plt Count MPV Neut % (Auto) Lymph % (Auto) Traverse % (Auto) Eos % (Auto) Baso % (Auto) Neut # Lymph # Traverse # Eos # Baso # PT INR APTT D-Dimer, Quantitative pCO2 50 H pO2 97 HCO3 24.2 ABG pH 7.32 L ABG Total CO2 27.3 ABG O2 Saturation 99.0 H ABG O2 Content 17.7 ABG Base Excess -0.9 ABG Hemoglobin 13.0 ABG Carboxyhemoglobin 2.3 H POC ABG HHb (Measured) 1.0 ABG Methemoglobin 0.7 ABG O2 Capacity 17.9 Fer Test Yes A-a O2 Difference 40.0 Hgb O2 Saturation 96.1 FiO2 28.0 Crit Value Read Back y Sodium Potassium Chloride Carbon Dioxide Anion Gap BUN Creatinine Est GFR ( Amer) Est GFR (Non-Af Amer) POC Glucose (mg/dL) 200 H Random Glucose Lactic Acid Calcium Total Bilirubin AST ALT Alkaline Phosphatase Lactate Dehydrogenase Troponin I 0.0230 NT-Pro-B Natriuret Pep Total Protein Albumin Globulin Albumin/Globulin Ratio Influenza Typ A,B (EIA) 02/17/17 02/17/17 02/17/17 10:46 11:30 12:46 WBC RBC Hgb Hct MCV MCH MCHC RDW Plt Count MPV Neut % (Auto) Lymph % (Auto) Traverse % (Auto) Eos % (Auto) Baso % (Auto) Neut # Lymph # Traverse # Eos # Baso # PT INR APTT D-Dimer, Quantitative 2.14 H pCO2 pO2 HCO3 ABG pH ABG Total CO2 ABG O2 Saturation ABG O2 Content ABG Base Excess ABG Hemoglobin ABG Carboxyhemoglobin POC ABG HHb (Measured) ABG Methemoglobin ABG O2 Capacity Fer Test A-a O2 Difference Hgb O2 Saturation FiO2 Crit Value Read Back Sodium Potassium Chloride Carbon Dioxide Anion Gap BUN Creatinine Est GFR ( Amer) Est GFR (Non-Af Amer) POC Glucose (mg/dL) Random Glucose Lactic Acid Calcium Total Bilirubin AST ALT Alkaline Phosphatase Lactate Dehydrogenase 760 H Troponin I NT-Pro-B Natriuret Pep Total Protein Albumin Globulin Albumin/Globulin Ratio Influenza Typ A,B (EIA) Negative for flu a/b 02/17/17 02/17/17 02/18/17 19:40 20:45 04:20 WBC 11.1 H 10.1 RBC 4.35 4.04 Hgb 13.5 12.8 Hct 43.2 40.3 MCV 99.3 H 99.8 H MCH 31.1 H 31.6 H MCHC 31.3 L 31.6 L RDW 16.4 H 16.2 H Plt Count 208 177 MPV 10.1 Neut % (Auto) 76.1 H Lymph % (Auto) 12.5 L Traverse % (Auto) 9.2 Eos % (Auto) 1.4 Baso % (Auto) 0.8 Neut # 8.4 H Lymph # 1.4 Traverse # 1.0 H Eos # 0.2 Baso # 0.1 PT 12.9 H INR 1.24 H APTT 25.3 D-Dimer, Quantitative pCO2 pO2 HCO3 ABG pH ABG Total CO2 ABG O2 Saturation ABG O2 Content ABG Base Excess ABG Hemoglobin ABG Carboxyhemoglobin POC ABG HHb (Measured) ABG Methemoglobin ABG O2 Capacity Fer Test A-a O2 Difference Hgb O2 Saturation FiO2 Crit Value Read Back Sodium 145 148 Potassium 4.3 4.1 Chloride 110 H 109 H Carbon Dioxide 20 L 27 Anion Gap 19 16 BUN 23 H 22 H Creatinine 0.9 0.9 Est GFR ( Amer) > 60 > 60 Est GFR (Non-Af Amer) > 60 > 60 POC Glucose (mg/dL) 133 H Random Glucose 140 H 88 Lactic Acid Calcium 8.3 L 8.0 L Total Bilirubin 1.4 H 1.1 AST 134 H 126 H ALT 184 H 177 H Alkaline Phosphatase 103 83 Lactate Dehydrogenase Troponin I < 0.0120 NT-Pro-B Natriuret Pep 7950 H Total Protein 5.9 L 5.6 L Albumin 3.1 L 2.8 L Globulin 2.8 2.8 Albumin/Globulin Ratio 1.1 1.0 Influenza Typ A,B (EIA) Fingerstick Blood Sugar Results: 104 Review of Systems - Review of Systems Review of Systems: 12 ROS reviewed with patient and found to be WNL. Assessment/Plan - Assessment and Plan (Free Text) Assessment: 71 y.o. female with PMHx of CAD, NC approximatley 3 years ago s/p Cardiac Cath but with no stent placement), HTN, Hypothyroidism, and Rheumatoid Arthritis with acute onset shortness of breath Acute Hypercapnic Respiratory Acidosis secondary to Acute Systolic CHF Exacerbation in the setting of elevated D-Dimer (2.14) and Hypotension. a-CT angiogram- Shows no signs of Pulmonary embolism b-Echochocardiogram- EF 10-15% with severe Mitral Regurgitation c-Continue Oxygen 2L NC d-Blood pressure stable e-Cardiology Consult on board- Input appreciated Severe Sepsis = SIRS Critera - BP 82/67 RR-30 + (Source)Possible Pneumonia + Lactic Acid Improving 2.2 > 1.2 Leucocytosis Improving 11 > 10.1 Improving a- Continue with Azithromycin P.O. b- Continue with Vancomycin I.V. c- Continue with Zosyn I.V. d- BCx- No growth after 24 hours F/U Throat Cx, Mycoplasma antibody, Legionella antibody CAD/Hx of NC- Troponin WNL .0230, No acute changes on EKG a- Continue current medical mangement b- Lipid Panel in the a.m. HTN- Well controlled BP- 103/72 this morning a- Hold Losartan 25mg Hypothyroidism a- C/W Levothyroxine 75mcg daily Rheumatodi arthritis a- Hold Xeljanz b- Hold Methotrexate Diet a- heart healthy DVT prophylaxis a- Lovenox 40mg sc <Antonino Patel M - Last Filed: 02/18/17 15:29> CCU Objective - Vital Signs / Intake & Output Vital Signs (Last 4 hours): Vital Signs Temp Pulse Resp BP Pulse Ox 02/18/17 13:00 95 H 20 98/58 L 99 02/18/17 12:00 97.6 F 85 18 84/64 L 97 Intake and Output (Last 8hrs): Intake & Output 02/18/17 02/18/17 02/18/17 06:59 14:59 22:59 Intake Total 458 950 Output Total 150 Balance 308 950 Weight 189 lb 8 oz Intake: IV 8 Intake, Piggyback 350 350 Oral 100 600 Output: Urine 150 Urine, Voided 150 - Medications Active Medications: Active Medications Generic Name Dose Route Start Last Admin Trade Name Freq PRN Reason Stop Dose Admin Atorvastatin Calcium 40 mg 02/19/17 09:00 Lipitor PO DAILY NOEL Azithromycin 250 mg 02/18/17 09:00 02/18/17 10:02 Zithromax PO 02/21/17 09:01 250 mg DAILY NOEL Administration Enoxaparin Sodium 40 mg 02/18/17 09:00 02/18/17 08:36 Lovenox SC 40 mg DAILY NOEL Administration Protocol Vancomycin HCl 1 gm/ Sodium 250 mls @ 166.667 mls/hr 02/17/17 10:30 02/18/17 08 :09 Chloride IVPB 166.667 mls/hr Q12 NOEL Administration Piperacillin Sod/Tazobactam 100 mls @ 100 mls/hr 02/17/17 16:00 02/18/17 09:01 Sod 3.375 gm/ Sodium Chloride IVPB 100 mls/hr Q6 NOEL Administration Levothyroxine Sodium 50 mcg 02/18/17 06:30 02/18/17 05:39 Synthroid PO 50 mcg DAILY@0630 NOEL Administration Morphine Sulfate 1 mg 02/18/17 11:18 Morphine IVP Q6 PRN Pain, severe (8-10) - Patient Studies Lab Studies: Microbiology Studies 02/17/17 04:00 Group A Strep Throat Culture - Final Throat NO BETA STREP GROUP A ISOLATED. Lab Studies 02/18/17 02/17/17 02/17/17 Range/Units 04:20 20:45 19:40 WBC 10.1 11.1 H (4.8-10.8) K/uL RBC 4.04 4.35 (3.80-5.20) Mil/uL Hgb 12.8 13.5 (12.0-16.0) g/dL Hct 40.3 43.2 (34.0-47.0) % MCV 99.8 H 99.3 H (81.0-99.0) fl MCH 31.6 H 31.1 H (27.0-31.0) pg MCHC 31.6 L 31.3 L (33.0-37.0) g/dL RDW 16.2 H 16.4 H (11.5-14.5) % Plt Count 177 208 (130-400) K/uL MPV 10.1 (7.2-11.7) fl Neut % (Auto) 76.1 H (50.0-75.0) % Lymph % (Auto) 12.5 L (20.0-40.0) % Traverse % (Auto) 9.2 (0.0-10.0) % Eos % (Auto) 1.4 (0.0-4.0) % Baso % (Auto) 0.8 (0.0-2.0) % Neut # 8.4 H (1.8-7.0) K/uL Lymph # 1.4 (1.0-4.3) K/uL Traverse # 1.0 H (0.0-0.8) K/uL Eos # 0.2 (0.0-0.7) K/uL Baso # 0.1 (0.0-0.2) K/uL PT 12.9 H (9.6-11.2) SECONDS INR 1.24 H (0.92-1.08) APTT 25.3 (23.3-32.5) SECONDS Sodium 148 145 (132-148) mmol/l Potassium 4.1 4.3 (3.6-5.0) MMOL/L Chloride 109 H 110 H (98-107) mmol/L Carbon Dioxide 27 20 L (22-30) mmol/L Anion Gap 16 19 (10-20) BUN 22 H 23 H (7-17) mg/dl Creatinine 0.9 0.9 (0.7-1.2) mg/dL Est GFR ( Amer) > 60 > 60 Est GFR (Non-Af Amer) > 60 > 60 POC Glucose (mg/dL) 133 H (65-110) mg/dL Random Glucose 88 140 H (65-105) mg/dL Calcium 8.0 L 8.3 L (8.4-10.2) mg/dL Total Bilirubin 1.1 1.4 H (0.2-1.3) mg/dl AST 126 H 134 H (14-36) U/L ALT 177 H 184 H (9-52) U/L Alkaline Phosphatase 83 103 (38-126) U/L Troponin I < 0.0120 (0.00-0.120) ng/mL NT-Pro-B Natriuret Pep 7950 H (0-900) pg/ml Total Protein 5.6 L 5.9 L (6.3-8.2) G/DL Albumin 2.8 L 3.1 L (3.5-5.0) g/dL Globulin 2.8 2.8 (2.2-3.9) gm/dL Albumin/Globulin Ratio 1.0 1.1 (1.0-2.1) Laboratory Results - last 24 hr 02/17/17 02/17/17 02/18/17 19:40 20:45 04:20 WBC 11.1 H 10.1 RBC 4.35 4.04 Hgb 13.5 12.8 Hct 43.2 40.3 MCV 99.3 H 99.8 H MCH 31.1 H 31.6 H MCHC 31.3 L 31.6 L RDW 16.4 H 16.2 H Plt Count 208 177 MPV 10.1 Neut % (Auto) 76.1 H Lymph % (Auto) 12.5 L [place] % (Auto) 9.2 Eos % (Auto) 1.4 Baso % (Auto) 0.8 Neut # 8.4 H Lymph # 1.4 [place]verse # 1.0 H Eos # 0.2 Baso # 0.1 PT 12.9 H INR 1.24 H APTT 25.3 Sodium 145 148 Potassium 4.3 4.1 Chloride 110 H 109 H Carbon Dioxide 20 L 27 Anion Gap 19 16 BUN 23 H 22 H Creatinine 0.9 0.9 Est GFR ( Amer) > 60 > 60 Est GFR (Non-Af Amer) > 60 > 60 POC Glucose (mg/dL) 133 H Random Glucose 140 H 88 Calcium 8.3 L 8.0 L Total Bilirubin 1.4 H 1.1 AST 134 H 126 H ALT 184 H 177 H Alkaline Phosphatase 103 83 Troponin I < 0.0120 NT-Pro-B Natriuret Pep 7950 H Total Protein 5.9 L 5.6 L Albumin 3.1 L 2.8 L Globulin 2.8 2.8 Albumin/Globulin Ratio 1.1 1.0 Attending/Attestation - Attestation I have personally seen and examined this patient.: Yes I have fully participated in the care of the patient.: Yes I have reviewed all pertinent clinical information: Yes Notes (Text): 02/18/17 15:16 Today: Saturday, February 18, 2017 The Patient was seen and examined at the bedside, Medical records reviewed, all clinical/lab/hemodynamic/radiographic data were reviewed and management issues were discussed and formulated, Events reviewed Pain issues, skin care, head of the bed elevation, GI/DVT prophylaxis, glycemic control were addressed. Agree with above treatment plans as transcribed in Dr. Kaur note Pt more comfortably today, NAD. AAO x3, follows commands Denies chest pain, No fever/chills, less SOB since yesterday Off BIPAP On Supplemental Oxygen, Adequate saturations on 2L Nasal cannula Last 24 H I&O 1758/150 Echo: EF 10-15% with severe Mitral Regurgitation, Cardiology follow up requested
[2017-02-18] MEDS: Enoxaparin 40 mg Syringe SC SCH (08:36)
--- NOTE | 2017-02-18 21:24 | CP.PCM.PN ---
Subjective - Date & Time of Evaluation Date of Evaluation: 02/18/17 Time of Evaluation: 13:10 - Subjective Subjective: The patient is seen at the bedside. She is without complaints of chest pain or dyspnea. She is anxious to go home. Objective - Vital Signs/Intake and Output Vital Signs (last 24 hours): Temp Pulse Resp BP Pulse Ox 98.7 F 94 H 24 122/55 L 97 02/18/17 20:00 02/18/17 21:00 02/18/17 21:00 02/18/17 21:00 02/18/17 21:00 Intake and Output: 02/18/17 02/19/17 18:59 06:59 Intake Total 1290 35 Output Total 200 50 Balance 1090 -15 - Medications Medications: Current Medications Atorvastatin Calcium (Lipitor) 40 mg PO DAILY [facility] Azithromycin (Zithromax) 250 mg PO DAILY [facility] Stop: 02/21/17 09:01 Last Admin: 02/18/17 10:02 Dose: 250 mg Enoxaparin Sodium (Lovenox) 40 mg SC DAILY [facility] PRN Reason: Protocol Last Admin: 02/18/17 08:36 Dose: 40 mg Vancomycin HCl 1 gm/ Sodium (Chloride) 250 mls @ 166.667 mls/hr IVPB Q12 [facility] Last Admin: 02/18/17 21:04 Dose: 166.667 mls/hr Piperacillin Sod/Tazobactam (Sod 3.375 gm/ Sodium Chloride) 100 mls @ 100 mls/ hr IVPB Q6 [facility] Last Admin: 02/18/17 15:32 Dose: 100 mls/hr Levothyroxine Sodium (Synthroid) 50 mcg PO DAILY@0630 [facility] Last Admin: 02/18/17 05:39 Dose: 50 mcg Morphine Sulfate (Morphine) 1 mg IVP Q6 PRN PRN Reason: Pain, severe (8-10) - Labs Labs: 02/18/17 04:20 02/18/17 04:20 PT 12.9 SECONDS (9.6-11.2) H 02/17/17 20:45 INR 1.24 (0.92-1.08) H 02/17/17 20:45 APTT 25.3 SECONDS (23.3-32.5) 02/17/17 20:45 - Constitutional Appears: Well, No Acute Distress - Head Exam Head Exam: ATRAUMATIC, NORMOCEPHALIC - Eye Exam Eye Exam: EOMI, Normal appearance, PERRL Pupil Exam: NORMAL ACCOMODATION - ENT Exam ENT Exam: Mucous Membranes Moist - Neck Exam Neck Exam: Full ROM - Respiratory Exam Respiratory Exam: Decreased Breath Sounds - Cardiovascular Exam Cardiovascular Exam: REGULAR RHYTHM, +S1, +S2 - GI/Abdominal Exam GI & Abdominal Exam: Normal Bowel Sounds - Extremities Exam Extremities Exam: Full ROM Assessment and Plan - Assessment and Plan (Free Text) Assessment: 1. Dilated cardiomyopathy. 2. Dyspnea. 3. Febrile illness. Plan: 1. Continue on IV antibiotics. 2. Cardiac status is stable. 3. Will follow prn.
[2017-02-18 21:54] LABS: RBC URINE 4 /hpf (0-3); URINE BILIRUBIN NEGATIVE (NEGATIVE); URINE BLOOD NEGATIVE (NEGATIVE); URINE COLOR AMBER (YELLOW); URINE GLUCOSE (UA) NEG (Normal); URINE KETONE NEGATIVE (NEGATIVE); URINE LEUKOCYTE ESTERASE TRACE Leu/uL (Negative); URINE PROTEIN 100 mg/dL (NEGATIVE); URINE URIC ACID CRYSTALS OCC /hpf (<OCC); WBC URINE 10 /hpf (0-5)
[2017-02-19] MEDS: Piperacillin/Tazobact 3.375 GM in Sodium Chloride 0.9% 100 ML IVPB SCH ×4 (04:36→21:00)
[2017-02-19 04:50] LABS: HEMATOCRIT 42.4 % (34.0-47.0); MEAN CELL VOLUME 99.7 fl (81.0-99.0); MEAN CORPUSCULAR HEMOGLOBIN 31.3 pg (27.0-31.0); MEAN CORPUSCULAR HGB CONC 31.3 g/dL (33.0-37.0); RED CELL DISTRIBUTION WIDTH 16.1 % (11.5-14.5); WHITE BLOOD COUNT 11.1 K/uL (4.8-10.8)
[2017-02-19 05:01] LABS: BLOOD UREA NITROGEN 21 mg/dl (7-17); CALCIUM 8.4 mg/dL (8.4-10.2); CARBON DIOXIDE 20 mmol/L (22-30); CHLORIDE 111 mmol/L (98-107); CHOLESTEROL 144 mg/dL (0-199); GFR AFRICAN-AMERICAN > 60; GLUCOSE,RANDOM 119 mg/dL (65-105); POTASSIUM 4.2 MMOL/L (3.6-5.0); SODIUM 146 mmol/l (132-148)
[2017-02-19] MEDS: Levothyroxine 50 MCG TAB PO SCH (05:34)
[2017-02-19] MEDS: Enoxaparin 40 mg Syringe SC SCH (08:31)
--- NOTE | 2017-02-19 10:21 | CP.PCM.PN ---
Subjective - Date & Time of Evaluation Date of Evaluation: 02/19/17 Time of Evaluation: 09:00 - Subjective Subjective: pt seen and examined at bedside this morning. No acute events overnight. Currently lying in bed comfortably in NAD. Reports feeling better overall. Ambulating to bathroom with assistance. Denies fever/chills, headaches, changes in vision, CP/SOB/palpitations, N/V/D/C, urinary symptoms, numbness/tingling. Objective - Vital Signs/Intake and Output Vital Signs (last 24 hours): Temp Pulse Resp BP Pulse Ox 97.4 F L 82 19 115/69 96 02/19/17 08:00 02/19/17 10:00 02/19/17 10:00 02/19/17 10:00 02/19/17 10:00 Intake and Output: 02/19/17 02/19/17 06:59 18:59 Intake Total 535 370 Output Total 130 Balance 405 370 - Medications Medications: Current Medications Atorvastatin Calcium (Lipitor) 40 mg PO DAILY [facility] Last Admin: 02/19/17 08:30 Dose: 40 mg Azithromycin (Zithromax) 250 mg PO DAILY [facility] Stop: 02/21/17 09:01 Last Admin: 02/19/17 08:30 Dose: 250 mg Enoxaparin Sodium (Lovenox) 40 mg SC DAILY [facility] PRN Reason: Protocol Last Admin: 02/19/17 08:31 Dose: 40 mg Vancomycin HCl 1 gm/ Sodium (Chloride) 250 mls @ 166.667 mls/hr IVPB Q12 [facility] Last Admin: 02/19/17 09:43 Dose: Not Given Piperacillin Sod/Tazobactam (Sod 3.375 gm/ Sodium Chloride) 100 mls @ 100 mls/ hr IVPB Q6 [facility] Last Admin: 02/19/17 09:13 Dose: 100 mls/hr Levothyroxine Sodium (Synthroid) 50 mcg PO DAILY@0630 [facility] Last Admin: 02/19/17 05:34 Dose: 50 mcg Morphine Sulfate (Morphine) 1 mg IVP Q6 PRN PRN Reason: Pain, severe (8-10) - Labs Labs: 02/19/17 04:20 02/19/17 04:20 PT 12.9 SECONDS (9.6-11.2) H 02/17/17 20:45 INR 1.24 (0.92-1.08) H 02/17/17 20:45 APTT 25.3 SECONDS (23.3-32.5) 02/17/17 20:45 - Constitutional Appears: Non-toxic, No Acute Distress - Eye Exam Eye Exam: EOMI. absent: Conjunctival injection, Scleral icterus Pupil Exam: PERRL - ENT Exam ENT Exam: Mucous Membranes Moist - Respiratory Exam Respiratory Exam: Clear to Ausculation Bilateral, NORMAL BREATHING PATTERN. absent: Rales, Rhonchi, Wheezes - Cardiovascular Exam Cardiovascular Exam: REGULAR RHYTHM, JVD, RRR, +S1, +S2. absent: Gallop, Rubs, Murmur - GI/Abdominal Exam GI & Abdominal Exam: Soft, Normal Bowel Sounds. absent: Guarding, Rigid, Tenderness, Mass - Extremities Exam Extremities Exam: Full ROM, Normal Inspection. absent: Calf Tenderness, Pedal Edema, Tenderness - Neurological Exam Neurological Exam: Alert, Awake, Oriented x3 - Psychiatric Exam Psychiatric exam: Normal Affect, Normal Mood - Skin Skin Exam: Dry, Intact, Normal Color. absent: Cyanosis, Diaphoretic Assessment and Plan - Assessment and Plan (Free Text) Assessment: 71 y/o F with PMH of CAD, [place] (3 years ago s/p cardiac cath but no stent placement), HTN, RA and hypothyroidism admitted due for SOB due to systolic heart failure exacerbation and sepsis. Systolic Heart Failure Exacerbation (NYHA IIIC) EKG: LBBB (none prior available for comparison) ProBNP: 7950 (down from 25840) Troponin I: negative x2 Lasix 40 IV daily ECHO: LVEF of 10-15%, severe left ventricular dilation, moderate left atrial dilation, moderate-severe mitral and tricuspid regurg. [employer] Teacher: Dr. Palacio, currently have Dr. Magdaleno on board, who recommends IV fluids, holding home antihypertensive medications, and ordering ECHO. daily weight check: 189 lbs CXR: mild pulmonary vascular congestion with questionable small left pleural effusion, cardiomegaly. Chest CT: no evidence of PE, moderate cardiomegaly, nonspecific groundglass opacities in lungs likely due to pulmonary congestion. Small right and left pleural effusions. 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 Palacio will follow up with pt for possible outpatient ICD implant -see by Dr. Kiran, as per him she is stable from a cardiac perspective , and will follow prn. -transferred to [facility] Sepsis Pneumonia with Bilateral Pleural Effusions Abx day #2 -afebrile -WBC: 11.1 (on 02/19) -IV Vancomycin 1 gm q12: HELD till tomorrow as trough was 19.3 -IV Zosyn 3.375gm q6 -Azithromycin PO 250mg Q daily -Blood Cultures: no growth after 24 hours -throat cultures negative -Legionella AB Panel: pending -Mycoplasma IgM: pending -M. Pneumoniae AB: pending HTN, controlled -hold Losartan (as per cardiology recommendation) Hypothyroidism chronic, controlled c/w home med synthroid Rheumatoid Arthritis chronic, controlled -hold meds DVT Prophylaxis Lovenox 40 SC daily
--- NOTE | 2017-02-19 10:39 | CP.CCUPN ---
<Chino Kaur - Last Filed: 02/19/17 13:46> CCU Subjective - Physician Review Events Since Last Encounter (Free Text): 02/19/17 10:56 Pt. seen and examined at bedside this morning eating sitting upright getting ready to eat breakfast with no complaints. No acute events reported by the patient overnight. On ROS, pt. does state she is able to get out of bed and to chair and to bathroom unassisted and without difficulty but does feel short of breath with exertion but not at rest. CCU Objective - Vital Signs / Intake & Output Vital Signs (Last 4 hours): Vital Signs Temp Pulse Resp BP Pulse Ox 02/19/17 10:00 82 19 115/69 96 02/19/17 08:00 97.4 F L 81 15 115/80 96 Intake and Output (Last 8hrs): Intake & Output 02/18/17 02/19/17 02/19/17 22:59 06:59 14:59 Intake Total 625 250 370 Output Total 100 30 Balance 525 220 370 Weight 191 lb 3.2 oz Intake: IV 10 0 Intake, Piggyback 350 200 250 Oral 265 50 120 Output: Urine 100 30 Urine, Voided 100 30 Other: # Voids Urine, Voided 1 1 # Bowel Movements 1 - Physical Exam Head: Positive for: Atraumatic, Normocephalic Respiratory/Chest: Positive for: Good Air Exchange, Other (scattered bi-basilar rhonchi). Negative for: Respiratory Distress, Accessory Muscle Use Cardiovascular: Positive for: Normal S1, S2 (+Syltolic murmur appreciated, + JVD ) Abdomen: Negative for: Tenderness Lower Extremity: Positive for: Edema. Negative for: CALF TENDERNESS Skin: Positive for: Warm, Dry - Medications Active Medications: Active Medications Generic Name Dose Route Start Last Admin Trade Name Freq PRN Reason Stop Dose Admin Atorvastatin Calcium 40 mg 02/19/17 09:00 02/19/17 08:30 Lipitor PO 40 mg DAILY [facility] Administration Azithromycin 250 mg 02/18/17 09:00 02/19/17 08:30 Zithromax PO 02/21/17 09:01 250 mg DAILY [facility] Administration Enoxaparin Sodium 40 mg 02/18/17 09:00 02/19/17 08:31 Lovenox SC 40 mg DAILY [facility] Administration Protocol Piperacillin Sod/Tazobactam 100 mls @ 100 mls/hr 02/17/17 16:00 02/19/17 09:13 Sod 3.375 gm/ Sodium Chloride IVPB 100 mls/hr Q6 [facility] Administration Levothyroxine Sodium 50 mcg 02/18/17 06:30 02/19/17 05:34 Synthroid PO 50 mcg DAILY@0630 [facility] Administration Morphine Sulfate 1 mg 02/18/17 11:18 Morphine IVP Q6 PRN Pain, severe (8-10) - Patient Studies Lab Studies: Microbiology Studies 02/17/17 12:46 MRSA Culture (Admit) - Final Nose MRSA NOT DETECTED 02/17/17 04:00 Group A Strep Throat Culture - Final Throat NO BETA STREP GROUP A ISOLATED. Lab Studies 02/19/17 02/19/17 02/18/17 Range/Units 07:00 04:20 21:45 WBC 11.1 H (4.8-10.8) K/uL RBC 4.26 (3.80-5.20) Mil/uL Hgb 13.3 (12.0-16.0) g/dL Hct 42.4 (34.0-47.0) % MCV 99.7 H (81.0-99.0) fl MCH 31.3 H (27.0-31.0) pg MCHC 31.3 L (33.0-37.0) g/dL RDW 16.1 H (11.5-14.5) % Plt Count 167 (130-400) K/uL Sodium 146 (132-148) mmol/l Potassium 4.2 (3.6-5.0) MMOL/L Chloride 111 H (98-107) mmol/L Carbon Dioxide 20 L (22-30) mmol/L Anion Gap 19 (10-20) BUN 21 H (7-17) mg/dl Creatinine 0.9 (0.7-1.2) mg/dL Est GFR ( Amer) > 60 Est GFR (Non-Af Amer) > 60 Random Glucose 119 H (65-105) mg/dL Calcium 8.4 (8.4-10.2) mg/dL Triglycerides 92 (0-149) mg/DL Cholesterol 144 (0-199) mg/dL LDL Cholesterol Direct 98 (0-129) mg/dL HDL Cholesterol 28 L (30-70) MG/DL Urine Color Caridad (YELLOW) Urine Clarity Slighty-cloudy (Clear) Urine pH 5.0 (5.0-8.0) Ur Specific [place] 1.035 H (1.003-1.030) Urine Protein 100 (NEGATIVE) mg/dL Urine Glucose (UA) Neg (Normal) mg/dL Urine Ketones Negative (NEGATIVE) mg/dL Urine Blood Negative (NEGATIVE) Urine Nitrate Negative (NEGATIVE) Urine Bilirubin Negative (NEGATIVE) Urine Urobilinogen 4.0 H (0.2-1.0) mg/dL Ur Leukocyte Esterase Trace (Negative) Marty/uL Urine RBC (Auto) 4 H (0-3) /hpf Urine Microscopic WBC 10 H (0-5) /hpf Ur Squamous Epith Cells 4 (0-5) /hpf Uric Acid Crystals Occ H (<OCC) /hpf Vancomycin Trough 19.3 H (5.0-10.0) ug/mL Laboratory Results - last 24 hr 02/18/17 02/19/17 02/19/17 21:45 04:20 07:00 WBC 11.1 H RBC 4.26 Hgb 13.3 Hct 42.4 MCV 99.7 H MCH 31.3 H MCHC 31.3 L RDW 16.1 H Plt Count 167 Sodium 146 Potassium 4.2 Chloride 111 H Carbon Dioxide 20 L Anion Gap 19 BUN 21 H Creatinine 0.9 Est GFR ( Amer) > 60 Est GFR (Non-Af Amer) > 60 Random Glucose 119 H Calcium 8.4 Triglycerides 92 Cholesterol 144 LDL Cholesterol Direct 98 HDL Cholesterol 28 L Urine Color Caridad Urine Clarity Slighty-cloudy Urine pH 5.0 Ur Specific [place] 1.035 H Urine Protein 100 Urine Glucose (UA) Neg Urine Ketones Negative Urine Blood Negative Urine Nitrate Negative Urine Bilirubin Negative Urine Urobilinogen 4.0 H Ur Leukocyte Esterase Trace Urine RBC (Auto) 4 H Urine Microscopic WBC 10 H Ur Squamous Epith Cells 4 Uric Acid Crystals Occ H Vancomycin Trough 19.3 H Fingerstick Blood Sugar Results: 104 Review of Systems - Review of Systems Review of Systems: See HPI Assessment/Plan - Assessment and Plan (Free Text) Assessment: 71 y.o. female with PMHx of CAD, [place] approximatley 3 years ago s/p Cardiac Cath but with no stent placement), HTN, Hypothyroidism, and Rheumatoid Arthritis with acute onset shortness of breath now improving since her stay in the ICU, stable for transfer to Telemetry. Acute Hypercapnic Respiratory Acidosis secondary to Acute Systolic CHF Exacerbation in the setting of elevated D-Dimer (2.14) and Hypotension. Improving a-CT angiogram- Shows no signs of Pulmonary embolism b-Echochocardiogram- EF 10-15% with severe Mitral Regurgitation c-Consider D/C of Oxygen 2L NC and put on Room Air d-Blood pressure stable- continue to hold Losartan e-Cardiology Consult on board- Input appreciated as per Dr. Elias on 02/18/17 1. Continue on IV antibiotics. 2. Cardiac status is stable. 3. Will follow prn. Severe Sepsis = SIRS Critera - BP 82/67 RR-30 + (Source)Possible Pneumonia + Lactic Acid Improving 2.2 > 1.2 Leucocytosis Improving 11 > 10.1 Improving a- Continue with Azithromycin P.O. b- Discontinue with Vancomycin I.V. c- Continue with Zosyn I.V. d- BCx- No growth after 48 hours F/U Throat Cx, Mycoplasma antibody, Legionella antibody c- D/C respiratory droplet precautions CAD/Hx of [place]- Troponin WNL .0230, No acute changes on EKG a- Continue current medical mangement b- Continue Atorvastatin 40mg once daily HTN- Well controlled BP- 103/72 this morning a- Hold Losartan 25mg Hypothyroidism a- C/W Levothyroxine 75mcg daily Rheumatoid arthritis a- Consider restarting Xeljanz b- Consider restarting Methotrexate Diet a- heart healthy DVT prophylaxis a- Lovenox 40mg sc <David Sen - Last Filed: 02/19/17 15:48> CCU Subjective - Physician Review Subjective (Free Text): Attestation: Patient seen and examined at the bedside with Resident Dr. Love Kaur; and I agree with his outline of plans and management documented below as discussed on AM rounds reflecting my review of all applicable clinical data, and participation in the care of the patient throughout the day in ICU; today, February 19, 2017.
[2017-02-20] MEDS: Piperacillin/Tazobact 3.375 GM in Sodium Chloride 0.9% 100 ML IVPB SCH ×4 (04:14→22:05)
[2017-02-20] MEDS: Levothyroxine 50 MCG TAB PO SCH (07:06)
[2017-02-20] MEDS: Enoxaparin 40 mg Syringe SC SCH (09:13)
--- NOTE | 2017-02-20 09:36 | CP.PCM.PN ---
Subjective - Date & Time of Evaluation Date of Evaluation: 02/20/17 Time of Evaluation: 07:20 - Subjective Subjective: pt seen and examined at bedside this morning. No acute events overnight. Pt lying in bed comfortably, NAD. Pt reports feeling better overall. Reports further improvement of SOB. No other complaints. OOB/ambulating with assistance to the bathroom without difficulty. Awaiting PT/OT eval and social work consult today. Denies fever/chills, headaches, changes in vision, CP/SOB/Palpitations, N /V/D/C, urinary symptoms, leg pain, numbness/tingling. Objective - Vital Signs/Intake and Output Vital Signs (last 24 hours): Temp Pulse Resp BP Pulse Ox 98.2 F 91 H 13 116/73 96 02/20/17 08:00 02/20/17 08:00 02/20/17 08:00 02/20/17 08:00 02/20/17 08:00 Intake and Output: 02/20/17 02/20/17 06:59 18:59 Intake Total 510 Balance 510 - Medications Medications: Current Medications Atorvastatin Calcium (Lipitor) 40 mg PO DAILY [facility] Last Admin: 02/20/17 09:01 Dose: 40 mg Azithromycin (Zithromax) 250 mg PO DAILY [facility] Stop: 02/21/17 09:01 Last Admin: 02/20/17 09:14 Dose: 250 mg Enoxaparin Sodium (Lovenox) 40 mg SC DAILY [facility] PRN Reason: Protocol Last Admin: 02/20/17 09:13 Dose: 40 mg Piperacillin Sod/Tazobactam (Sod 3.375 gm/ Sodium Chloride) 100 mls @ 100 mls/ hr IVPB Q6 [facility] Last Admin: 02/20/17 09:14 Dose: 100 mls/hr Levothyroxine Sodium (Synthroid) 50 mcg PO DAILY@0630 [facility] Last Admin: 02/20/17 07:06 Dose: 50 mcg Morphine Sulfate (Morphine) 1 mg IVP Q6 PRN PRN Reason: Pain, severe (8-10) - Labs Labs: 02/19/17 04:20 02/19/17 04:20 PT 12.9 SECONDS (9.6-11.2) H 02/17/17 20:45 INR 1.24 (0.92-1.08) H 02/17/17 20:45 APTT 25.3 SECONDS (23.3-32.5) 02/17/17 20:45 - Constitutional Appears: Well, Non-toxic, No Acute Distress - Eye Exam Eye Exam: EOMI. absent: Conjunctival injection, Scleral icterus Pupil Exam: PERRL - ENT Exam ENT Exam: Mucous Membranes Moist - Respiratory Exam Respiratory Exam: Clear to Ausculation Bilateral, NORMAL BREATHING PATTERN. absent: Rales, Rhonchi, Wheezes, Respiratory Distress - Cardiovascular Exam Cardiovascular Exam: REGULAR RHYTHM, JVD, RRR, +S1, +S2. absent: Tachycardia, Gallop, Rubs, Murmur - GI/Abdominal Exam GI & Abdominal Exam: Soft, Normal Bowel Sounds. absent: Distended, Guarding, Rigid, Tenderness - Extremities Exam Extremities Exam: Normal Inspection. absent: Calf Tenderness, Pedal Edema, Tenderness - Neurological Exam Neurological Exam: Alert, Awake, CN II-XII Intact, Oriented x3 - Psychiatric Exam Psychiatric exam: Normal Affect, Normal Mood - Skin Skin Exam: Dry, Intact, Normal Color, Warm Assessment and Plan - Assessment and Plan (Free Text) Assessment: 71 y/o F with PMH of CAD, [place] (3 years ago s/p cardiac cath but no stent placement), HTN, RA and hypothyroidism admitted due for SOB due to systolic heart failure exacerbation and sepsis. Systolic Heart Failure Exacerbation (NYHA IIIC) EKG: LBBB (none prior available for comparison) ProBNP: 7950 (down from 29421) Troponin I: negative x2 Lasix 40 IV daily ECHO: LVEF of 10-15%, severe left ventricular dilation, moderate left atrial dilation, moderate-severe mitral and tricuspid regurg. [employer] Singer: Dr. Palacio, currently have Dr. Magdaleno on board, who recommends IV fluids, holding home antihypertensive medications, and ordering ECHO. daily weight check: 189 lbs CXR: mild pulmonary vascular congestion with questionable small left pleural effusion, cardiomegaly. Chest CT: no evidence of PE, moderate cardiomegaly, nonspecific groundglass opacities in lungs likely due to pulmonary congestion. Small right and left pleural effusions. 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 Palacio will follow up with pt for possible outpatient ICD implant -see by Dr. Kiran, as per him she is stable from a cardiac perspective , and will follow prn. -transferred to Tele -PT/OT eval/treat Sepsis Pneumonia with Bilateral Pleural Effusions Abx day #3 -afebrile -WBC: 11.1 (on 02/19) -IV Vancomycin 1 gm q12: discontinued -IV Zosyn 3.375gm q6 -Azithromycin PO 250mg Q daily -Blood Cultures: no growth after 24 hours -throat cultures negative -Legionella AB Panel: pending -Mycoplasma IgM: pending -M. Pneumoniae AB: pending -f/u CXR today: No active disease HTN, controlled -hold Losartan (as per cardiology recommendation) Hypothyroidism chronic, controlled c/w home med synthroid Rheumatoid Arthritis chronic, controlled -hold meds DVT Prophylaxis Lovenox 40 SC daily
--- NOTE | 2017-02-20 10:15 | RAD ---
HISTORY: pneumonia COMPARISON: 02/17/2017 TECHNIQUE: Chest PA and lateral FINDINGS: LUNGS: No active pulmonary disease. PLEURA: No significant pleural effusion identified. No pneumothorax apparent. CARDIOVASCULAR: Moderate cardiomegaly OSSEOUS STRUCTURES: No significant abnormalities. VISUALIZED UPPER ABDOMEN: Normal. OTHER FINDINGS: None. IMPRESSION: No active disease.
[2017-02-21] MEDS: Piperacillin/Tazobact 3.375 GM in Sodium Chloride 0.9% 100 ML IVPB SCH ×2 (04:02→10:04)
[2017-02-21] MEDS: Levothyroxine 50 MCG TAB PO SCH (07:03)
[2017-02-21] MEDS: Enoxaparin 40 mg Syringe SC SCH (10:04)
--- NOTE | 2017-02-21 13:28 | CP.PCM.PN ---
Subjective - Date & Time of Evaluation Date of Evaluation: 02/21/17 Time of Evaluation: 07:30 - Subjective Subjective: pt seen and examined bedside this morning. No acute events overnight. Lying in bed comfortably in NAD. Has no complaints this morning. OOB/ambulating with assistance without dizziness. Denies shortness of breath. Reports uneventful overnight and slept well. Denies fever/chills, headaches, changes in vision, CP/ SOB/palpitations, N/V/D/C, urinary symptoms, leg pain, and numbness/tingling. Objective - Vital Signs/Intake and Output Vital Signs (last 24 hours): Temp Pulse Resp BP Pulse Ox 98 F 87 20 102/76 100 02/21/17 12:38 02/21/17 12:38 02/21/17 12:38 02/21/17 12:38 02/21/17 12:38 Intake and Output: 02/21/17 02/21/17 06:59 18:59 Intake Total 275 Balance 275 - Medications Medications: Current Medications Atorvastatin Calcium (Lipitor) 40 mg PO DAILY [facility] Last Admin: 02/21/17 10:03 Dose: 40 mg Duloxetine HCl (Cymbalta) 60 mg PO DAILY [facility] Last Admin: 02/21/17 10:03 Dose: 60 mg Enoxaparin Sodium (Lovenox) 40 mg SC DAILY [facility] PRN Reason: Protocol Last Admin: 02/21/17 10:04 Dose: 40 mg Levothyroxine Sodium (Synthroid) 50 mcg PO DAILY@0630 [facility] Last Admin: 02/21/17 07:03 Dose: 50 mcg Morphine Sulfate (Morphine) 1 mg IVP Q6 PRN PRN Reason: Pain, severe (8-10) Last Admin: 02/21/17 00:26 Dose: 1 mg - Labs Labs: 02/19/17 04:20 02/19/17 04:20 PT 12.9 SECONDS (9.6-11.2) H 02/17/17 20:45 INR 1.24 (0.92-1.08) H 02/17/17 20:45 APTT 25.3 SECONDS (23.3-32.5) 02/17/17 20:45 - Constitutional Appears: Non-toxic, No Acute Distress - Eye Exam Eye Exam: EOMI. absent: Conjunctival injection, Scleral icterus Pupil Exam: PERRL - Respiratory Exam Respiratory Exam: Rales, NORMAL BREATHING PATTERN. absent: Rhonchi, Wheezes Additional comments: bibasilar rales - Cardiovascular Exam Cardiovascular Exam: REGULAR RHYTHM, JVD, RRR, +S1, +S2. absent: Gallop, Rubs, Murmur - GI/Abdominal Exam GI & Abdominal Exam: Soft, Normal Bowel Sounds. absent: Distended, Firm, Guarding, Rigid, Tenderness - Extremities Exam Extremities Exam: absent: Calf Tenderness, Pedal Edema - Neurological Exam Neurological Exam: Alert, Awake, CN II-XII Intact, Normal Gait, Oriented x3 - Psychiatric Exam Psychiatric exam: Normal Affect, Normal Mood - Skin Skin Exam: Dry, Intact, Normal Color, Warm Assessment and Plan - Assessment and Plan (Free Text) Assessment: 71 y/o F with PMH of CAD, [place] (3 years ago s/p cardiac cath but no stent placement), HTN, RA and hypothyroidism admitted due for SOB due to systolic heart failure exacerbation and sepsis. Pt is medically stable, waiting for placement to either TCU/rehab Systolic Heart Failure Exacerbation (NYHA IIIC) EKG: LBBB (none prior available for comparison) ProBNP: 7950 (down from 32695) Troponin I: negative x2 Lasix 40 IV daily ECHO: LVEF of 10-15%, severe left ventricular dilation, moderate left atrial dilation, moderate-severe mitral and tricuspid regurg. Patient Coordinator: Dr. Palacio, currently have Dr. Magdaleno on board, who recommends IV fluids, holding home antihypertensive medications, and ordering ECHO. daily weight check: 189 lbs CXR: mild pulmonary vascular congestion with questionable small left pleural effusion, cardiomegaly. Chest CT: no evidence of PE, moderate cardiomegaly, nonspecific groundglass opacities in lungs likely due to pulmonary congestion. Small right and left pleural effusions. 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 Palacio will follow up with pt for possible outpatient ICD implant -see by Dr. Kiran, as per him she is stable from a cardiac perspective , and will follow prn. -transfer to Med/surg -PT/OT eval/treat Sepsis Pneumonia with Bilateral Pleural Effusions -afebrile -WBC: 11.1 (on 02/19) -IV Vancomycin 1 gm q12: discontinued -IV Zosyn: discontinued -Azithromycin PO 250mg Q daily -Blood Cultures: no growth after 24 hours -throat cultures negative -Legionella AB Panel: pending -Mycoplasma IgM: pending -M. Pneumoniae AB: pending -f/u CXR 02/20: No active disease HTN, controlled -hold Losartan (as per cardiology recommendation) Hypothyroidism chronic, controlled c/w home med synthroid Rheumatoid Arthritis chronic, controlled -hold meds DVT Prophylaxis Lovenox 40 SC daily
[2017-02-21 16:25] VITALS: BP 110/78; RESP 18; TEMP 97.5; O2SAT 98
[2017-03-03 16:57] VITALS: PULSE 100
--- NOTE | 2017-03-07 09:29 | CP.PCM.DIS ---
Provider - Provider Date of Admission: 02/16/17 20:51 Attending physician: Sandra Martin MD Time Spent in preparation of Discharge (in minutes): 35 Diagnosis - Discharge Diagnosis (1) Pneumonia Status: Acute Hospital Course - Lab Results Lab Results: Micro Results 02/18/17 21:45 Urine,Clean Catch Urine Culture - Final No Growth (<1,000 CFU/ML) 02/17/17 12:46 Nose MRSA Culture (Admit) - Final MRSA NOT DETECTED 02/17/17 04:00 Throat Group A Strep Throat Culture - Final NO BETA STREP GROUP A ISOLATED. Most Recent Lab Values WBC 11.1 K/uL (4.8-10.8) H 02/19/17 04:20 RBC 4.26 Mil/uL (3.80-5.20) 02/19/17 04:20 Hgb 13.3 g/dL (12.0-16.0) 02/19/17 04:20 Hct 42.4 % (34.0-47.0) 02/19/17 04:20 MCV 99.7 fl (81.0-99.0) H 02/19/17 04:20 MCH 31.3 pg (27.0-31.0) H 02/19/17 04:20 MCHC 31.3 g/dL (33.0-37.0) L 02/19/17 04:20 RDW 16.1 % (11.5-14.5) H 02/19/17 04:20 Plt Count 167 K/uL (130-400) 02/19/17 04:20 MPV 10.1 fl (7.2-11.7) 02/17/17 20:45 Neut % (Auto) 76.1 % (50.0-75.0) H 02/17/17 20:45 Lymph % (Auto) 12.5 % (20.0-40.0) L 02/17/17 20:45 Cotton % (Auto) 9.2 % (0.0-10.0) 02/17/17 20:45 Eos % (Auto) 1.4 % (0.0-4.0) 02/17/17 20:45 Baso % (Auto) 0.8 % (0.0-2.0) 02/17/17 20:45 Neut # 8.4 K/uL (1.8-7.0) H 02/17/17 20:45 Lymph # 1.4 K/uL (1.0-4.3) 02/17/17 20:45 Cotton # 1.0 K/uL (0.0-0.8) H 02/17/17 20:45 Eos # 0.2 K/uL (0.0-0.7) 02/17/17 20:45 Baso # 0.1 K/uL (0.0-0.2) 02/17/17 20:45 Neutrophils % (Manual) 88 % (42-75) H 02/16/17 18:30 Lymphocytes % (Manual) 6 % (20-50) L 02/16/17 18:30 Monocytes % (Manual) 6 % (0-10) 02/16/17 18:30 Platelet Estimate Normal (NORMAL) 02/16/17 18:30 Large Platelets Present 02/16/17 18:30 Anisocytosis (manual) Slight 02/16/17 18:30 PT 12.9 SECONDS (9.6-11.2) H 02/17/17 20:45 INR 1.24 (0.92-1.08) H 02/17/17 20:45 APTT 25.3 SECONDS (23.3-32.5) 02/17/17 20:45 D-Dimer, Quantitative 2.14 mg/L FEU (0-0.50) H 02/17/17 11:30 pCO2 50 mm/Hg (35-45) H 02/17/17 10:30 pO2 97 mm/Hg (80-100) 02/17/17 10:30 HCO3 24.2 mmol/L (21-28) 02/17/17 10:30 ABG pH 7.32 (7.35-7.45) L 02/17/17 10:30 ABG Total CO2 27.3 mmol/L (22-28) 02/17/17 10:30 ABG O2 Saturation 99.0 % (95-98) H 02/17/17 10:30 ABG O2 Content 17.7 ML/dL (15-23) 02/17/17 10:30 ABG Base Excess -0.9 mmol/L (-2.0-3.0) 02/17/17 10:30 ABG Hemoglobin 13.0 g/dL (11.7-17.4) 02/17/17 10:30 ABG Carboxyhemoglobin 2.3 % (0.5-1.5) H 02/17/17 10:30 POC ABG HHb (Measured) 1.0 % (0.0-5.0) 02/17/17 10:30 ABG Methemoglobin 0.7 % (0.0-3.0) 02/17/17 10:30 ABG O2 Capacity 17.9 mL/dL (16-24) 02/17/17 10:30 Efr Test Yes 02/17/17 10:30 VBG pH 7.36 (7.32-7.43) 02/16/17 00:34 VBG pCO2 44 mmHg (40-60) 02/16/17 00:34 VBG HCO3 24.3 mmol/L 02/16/17 00:34 VBG Total CO2 26.3 mmol/L (22-28) 02/16/17 00:34 VBG O2 Sat (Calc) 98.9 % (40-65) H 02/16/17 00:34 VBG Base Excess -0.8 mmol/L (0.0-2.0) L 02/16/17 00:34 VBG Potassium 4.3 mmol/L (3.6-5.2) 02/16/17 00:34 A-a O2 Difference 40.0 mm/Hg 02/17/17 10:30 Hgb O2 Saturation 96.1 % (95.0-98.0) 02/17/17 10:30 Sodium 140.0 mmol/L (132-148) 02/16/17 00:34 Chloride 113.0 mmol/L (98-107) H 02/16/17 00:34 Glucose 97 mg/dL (65-105) 02/16/17 00:34 Lactate 1.7 mmol/L (0.7-2.1) 02/16/17 00:34 FiO2 28.0 % 02/17/17 10:30 Crit Value Read Back y 02/17/17 10:30 Sodium 146 mmol/l (132-148) 02/19/17 04:20 Potassium 4.2 MMOL/L (3.6-5.0) 02/19/17 04:20 Chloride 111 mmol/L (98-107) H 02/19/17 04:20 Carbon Dioxide 20 mmol/L (22-30) L 02/19/17 04:20 Anion Gap 19 (10-20) 02/19/17 04:20 BUN 21 mg/dl (7-17) H 02/19/17 04:20 Creatinine 0.9 mg/dL (0.7-1.2) 02/19/17 04:20 Est GFR ( Amer) > 60 02/19/17 04:20 Est GFR (Non-Af Amer) > 60 02/19/17 04:20 POC Glucose (mg/dL) 133 mg/dL (65-110) H 02/17/17 19:40 Random Glucose 119 mg/dL (65-105) H 02/19/17 04:20 Lactic Acid 1.2 MMOL/L (0.7-2.1) 02/17/17 08:30 Calcium 8.4 mg/dL (8.4-10.2) 02/19/17 04:20 Total Bilirubin 1.1 mg/dl (0.2-1.3) 02/18/17 04:20 AST 126 U/L (14-36) H 02/18/17 04:20 ALT 177 U/L (9-52) H 02/18/17 04:20 Alkaline Phosphatase 83 U/L (38-126) 02/18/17 04:20 Lactate Dehydrogenase 760 U/L (313-618) H 02/17/17 10:46 Troponin I < 0.0120 ng/mL (0.00-0.120) 02/17/17 20:45 NT-Pro-B Natriuret Pep 7950 pg/ml (0-900) H 02/17/17 20:45 Total Protein 5.6 G/DL (6.3-8.2) L 02/18/17 04:20 Albumin 2.8 g/dL (3.5-5.0) L 02/18/17 04:20 Globulin 2.8 gm/dL (2.2-3.9) 02/18/17 04:20 Albumin/Globulin Ratio 1.0 (1.0-2.1) 02/18/17 04:20 Triglycerides 92 mg/DL (0-149) 02/19/17 04:20 Cholesterol 144 mg/dL (0-199) 02/19/17 04:20 LDL Cholesterol Direct 98 mg/dL (0-129) 02/19/17 04:20 HDL Cholesterol 28 MG/DL (30-70) L 02/19/17 04:20 TSH 3rd Generation 1.13 mIU/ML (0.46-4.68) 02/20/17 06:00 Venous Blood Potassium 4.3 mmol/L (3.6-5.2) 02/16/17 00:34 Urine Color [place] (YELLOW) 02/18/17 21:45 Urine Clarity Slighty-cloudy (Clear) 02/18/17 21:45 Urine pH 5.0 (5.0-8.0) 02/18/17 21:45 Ur Specific [place] 1.035 (1.003-1.030) H 02/18/17 21:45 Urine Protein 100 mg/dL (NEGATIVE) 02/18/17 21:45 Urine Glucose (UA) Neg mg/dL (Normal) 02/18/17 21:45 Urine Ketones Negative mg/dL (NEGATIVE) 02/18/17 21:45 Urine Blood Negative (NEGATIVE) 02/18/17 21:45 Urine Nitrate Negative (NEGATIVE) 02/18/17 21:45 Urine Bilirubin Negative (NEGATIVE) 02/18/17 21:45 Urine Urobilinogen 4.0 mg/dL (0.2-1.0) H 02/18/17 21:45 Ur Leukocyte Esterase Trace Marty/uL (Negative) 02/18/17 21:45 Urine RBC (Auto) 4 /hpf (0-3) H 02/18/17 21:45 Urine Microscopic WBC 10 /hpf (0-5) H 02/18/17 21:45 Ur Squamous Epith Cells 4 /hpf (0-5) 02/18/17 21:45 Uric Acid Crystals Occ /hpf (<OCC) H 02/18/17 21:45 Vancomycin Trough 19.3 ug/mL (5.0-10.0) H 02/19/17 07:00 Influenza Typ A,B (EIA) Negative for flu a/b (NEGATIVE) 02/17/17 12:46 Mycoplasma pneumon IgG <=0.90 (<=0.90) 02/17/17 18:15 Mycoplasma pneumon IgM 8 U/mL (<770) 02/17/17 18:15 Grp A Beta Strep Ag Negative (NEGATIVE) 02/17/17 04:00 Blood Type O POSITIVE 02/16/17 18:30 Blood Type Confirm O POSITIVE 02/16/17 19:06 Antibody Screen Negative 02/16/17 18:30 BBK History Checked No verified bt 02/16/17 18:30 - Hospital Course Hospital Course: 71 y/o F with PMH of CAD, [place] (3 years ago s/p cardiac cath but no stent placement), HTN, RA and hypothyroidism was admitted due for SOB due to systolic heart failure exacerbation and sepsis secondary to pneumonia. During her stay, she had an BOX LIDDER for SOB and was moved to ICU. She was on Vancomycin, azithromycin and Zosyn for pneumonia and cardiology was consulted for her heart failure. After a short stay in the ICU she was moved to med/surg. Cardiology cleared her and decided to continue her work up as outpatient. Her pneumonia resolved and she was transferred to TCU to finish her abx and rehab in stable condition. Discharge Exam - Head Exam Head Exam: ATRAUMATIC, NORMOCEPHALIC - Eye Exam Eye Exam: EOMI Pupil Exam: PERRL - ENT Exam ENT Exam: Mucous Membranes Moist - Respiratory Exam Respiratory Exam: Rales, Wheezes, NORMAL BREATHING PATTERN. absent: Accessory Muscle Use, Respiratory Distress - Cardiovascular Exam Cardiovascular Exam: REGULAR RHYTHM, JVD, RRR, +S1, +S2. absent: Tachycardia, Gallop, Rubs, Systolic Murmur - GI/Abdominal Exam GI & Abdominal Exam: Normal Bowel Sounds, Unremarkable - Extremities Exam Extremities exam: normal capillary refill, normal inspection, pedal pulses present - Neurological Exam Neurological exam: Alert, CN II-XII Intact, Oriented x3, Reflexes Normal - Psychiatric Exam Psychiatric exam: Normal Affect, Normal Mood - Skin Skin Exam: Dry, Intact, Normal Color, Warm Discharge Plan - Follow Up Plan Condition: STABLE Disposition: TRANSF TO SNF
== END 2017-02-21 18:00 | DRG 871 ==
LOC: H.ER 17:11 → H.ERHOLD 20:51 → H.TEL 02-17 09:51 → H.ICU/CCU 02-17 10:32 → H.TEL 02-20 16:45
PROVIDERS: ADMIT Family Medicine Geriatric Medicine; ATTEND Family Medicine Geriatric Medicine
DX: A41.9 Sepsis, unspecified organism (principal); J18.9 Pneumonia, unspecified organism; I50.21 Acute systolic (congestive) heart failure; E87.2 Acidosis; I42.0 Dilated cardiomyopathy; I11.0 Hypertensive heart disease with heart failure; I44.7 Left bundle-branch block, unspecified; R65.20 Severe sepsis without septic shock; M06.9 Rheumatoid arthritis, unspecified; E03.9 Hypothyroidism, unspecified; E78.5 Hyperlipidemia, unspecified; I25.10 Atherosclerotic heart disease of native coronary artery without angina pectoris; I25.2 Old myocardial infarction; I08.1 Rheumatic disorders of both mitral and tricuspid valves; Z87.891 Personal history of nicotine dependence

== ENCOUNTER 2017-02-21 16:41 | Inpatient (IN) | payer OTHER ==
[2017-02-21 18:49] VITALS: BMI 34.7
[2017-02-22] MEDS: Levothyroxine 50 MCG TAB PO SCH (06:20)
--- NOTE | 2017-02-22 07:58 | CP.PCM.HP ---
History of Present Illness - History of Present Illness History of Present Illness: PAtient 89 y/o female with PMHx of CHF systolic dysfunctions, RA, HTN, CAD, Hypothyroidism recent admitted in telemetry due to CHF exacerabtion and pneumonia, ( resolved ) is admitted in TCU for deconditioning and generalized weakens for completer rehab reaching strength ROM and safety ambulation. Today patient reported felling well denied nuaeas vomits diarhea, chest pain palpitations urinary bronson sleeping problems. Patient Blood pressure WNL no anti HTN medication at this time. PMD: Dr. Isbell (last visit in [facility] since 04/2016, could not access progress notes for that visit) Cotton Dispatcher: Dr. Palacio Rheum: Dr. Andrea PMH: CAD, PA (3 years ago s/p cardiac cath but no stent placement as per patient ), HTN, RA and hypothyroidism PSH: denies Meds: see reconciled list below Allergies: NKDA SH: smoker ( quit 20+ years ago), denies etoh, drugs Present on Admission - Present on Admission Any Indicators Present on Admission: No Review of Systems - Review of Systems Review of Systems: as per HPI Past Patient History - Past Medical History & Family History Past Medical History?: Yes - Past Social History Smoking Status: Former Smoker - CARDIAC Hx Cardiac Disorders: Yes Hx Congestive Heart Failure: Yes Hx Heart Attack: Yes (as per patient) Hx Hypertension: Yes Hx Internal Defibrillator: No Hx Pacemaker: No - PULMONARY Hx Respiratory Disorders: No - NEUROLOGICAL Hx Neurological Disorder: No - HEENT Hx HEENT Problems: No - RENAL Hx Chronic Kidney Disease: No - ENDOCRINE/METABOLIC Hx Endocrine Disorders: Yes Hx Hypothyroidism: Yes - HEMATOLOGICAL/ONCOLOGICAL Hx Blood Disorders: No Hx AIDS: No Hx Human Immunodeficiency Virus (HIV): No - INTEGUMENTARY Hx Dermatological Problems: No - MUSCULOSKELETAL/RHEUMATOLOGICAL Hx Arthritis: Yes (Rheumatoid) Hx Falls: Yes (no falls last 3 mos.) - GASTROINTESTINAL Hx Gastrointestinal Disorders: No - GENITOURINARY/GYNECOLOGICAL Hx Genitourinary Disorders: No - PSYCHIATRIC Hx Psychophysiologic Disorder: No Hx Substance Use: No - SURGICAL HISTORY Hx Cardiac Catheterization: Yes - ANESTHESIA Hx Anesthesia: Yes Hx Anesthesia Reactions: No Hx Malignant Hyperthermia: No Has any member of the family had a problem w/ anesthesia?: No Meds Allergies/Adverse Reactions: Allergies Allergy/AdvReac Type Severity Reaction Status Date / Time No Known Allergies Allergy Verified 02/21/17 18:49 Physical Exam - Head Exam Additional comments: ATRAUMATIC - Eye Exam Eye Exam: PERRL - ENT Exam ENT Exam: Mucous Membranes Moist - Respiratory Exam Respiratory Exam: Decreased Breath Sounds (BS decreased on BL lung bases), Rales. absent: Accessory Muscle Use, Respiratory Distress - Cardiovascular Exam Cardiovascular Exam: +S1, +S2 - GI/Abdominal Exam GI & Abdominal Exam: Soft. absent: Distended, Guarding, Tenderness - Extremities Exam Extremities exam: Positive for: normal capillary refill, pedal pulses present. Negative for: calf tenderness, pedal edema Additional comments: ulnar deviation seen bilaterally due to severe RA - Neurological Exam Neurological exam: Alert, Oriented x3 - Psychiatric Exam Psychiatric exam: Normal Affect, Normal Mood - Skin Skin Exam: Dry, Warm Results - Vital Signs Recent Vital Signs: Last Vital Signs Temp 97.3 F L 02/21/17 23:01 Pulse 93 H 02/21/17 23:01 Resp 20 02/21/17 23:01 BP 111/63 02/21/17 23:01 Pulse Ox 95 02/21/17 23:01 Assessment & Plan - Assessment and Plan (Free Text) Plan: PAtient 71 y/o F, CHF systolic dysfunctions RA, CAD, admitted for deconditioning and genralized weakness 1)Decondintioning Admit to TCU PT/OT eval and treamtent Will continue to monitos 2)Systolic Heart Failure Exacerbation (NYHA IIIC) Compensated EKG: LBBB (none prior available for comparison) ProBNP: 7950 improved Troponin I: negative x2 ECHO: LVEF of 10-15%, severe left ventricular dilation, moderate left atrial dilation, moderate-severe mitral and tricuspid regurg. Cotton Dispatcher: Dr. Palacio, cosnulted CXR: mild pulmonary vascular congestion with questionable small left pleural effusion, cardiomegaly. -Dr. Palacio will follow up with pt for possible outpatient AICD implant -PT/OT eval/treat 3) Pneumonia with Bilateral Pleural Effusions -REsolved complete tretment with Zhytrhomax for 3 more days . 4) HTN, controlled low NA diet -hold Losartan (as per cardiology recommendation) -BP WNL 5)Hypothyroidism chronic, controlled c/w home med synthroid 6)Rheumatoid Arthritis chronic, controlled -hold meds 7)DVT Prophylaxis Lovenox 40 SC daily
[2017-02-22] MEDS: Enoxaparin 40 mg Syringe SC SCH (09:24)
[2017-02-23] MEDS: Levothyroxine 50 MCG TAB PO SCH (05:42)
[2017-02-23] MEDS: Enoxaparin 40 mg Syringe SC SCH (08:13)
[2017-02-24] MEDS: Levothyroxine 50 MCG TAB PO SCH (05:46)
[2017-02-24] MEDS: Enoxaparin 40 mg Syringe SC SCH (08:32)
[2017-02-25] MEDS: Levothyroxine 50 MCG TAB PO SCH (05:30)
--- NOTE | 2017-02-25 08:30 | CP.PCM.PN ---
Subjective - Date & Time of Evaluation Date of Evaluation: 02/25/17 Time of Evaluation: 08:25 - Subjective Subjective: The patient is a 71 y/o woman with PMHx of CHF systolic dysfunctions, RA, HTN, CAD, Hypothyroidism recent admitted in telemetry due to CHF exacerabtion and pneumonia ( resolved ); is admitted in TCU for deconditioning and generalized weakness for completing rehab, reaching strength, ROM and safe ambulation. The patient was seen this morning. There are no acute events overnight. Patient was having some nausea but no vomiting episodes which resolved with zofran. Patient denies headaches, dizziness, chest pain, abdominal pain, dysuria, and fevers. Objective - Vital Signs/Intake and Output Vital Signs (last 24 hours): Temp Pulse Resp BP Pulse Ox 97.7 F 104 H 20 118/76 98 02/25/17 08:08 02/25/17 08:08 02/25/17 08:08 02/25/17 08:08 02/25/17 08:08 - Medications Medications: Current Medications Atorvastatin Calcium (Lipitor) 40 mg PO DAILY [facility] Last Admin: 02/24/17 08:32 Dose: 40 mg Azithromycin (Zithromax) 250 mg PO DAILY [facility] Stop: 02/25/17 09:01 Last Admin: 02/24/17 08:33 Dose: 250 mg Duloxetine HCl (Cymbalta) 60 mg PO DAILY [facility] Last Admin: 02/24/17 08:31 Dose: 60 mg Enoxaparin Sodium (Lovenox) 40 mg SC DAILY [facility] PRN Reason: Protocol Last Admin: 02/24/17 08:32 Dose: 40 mg Famotidine (Pepcid) 20 mg PO DAILY [facility] Last Admin: 02/24/17 08:33 Dose: 20 mg Ibuprofen (Motrin Tab) 600 mg PO Q8 PRN PRN Reason: Pain, Mild (1-3) Levothyroxine Sodium (Synthroid) 50 mcg PO DAILY@0630 [facility] Last Admin: 02/25/17 05:30 Dose: 50 mcg Morphine Sulfate (Morphine) 1 mg IVP Q6 PRN PRN Reason: Pain, moderate (4-7) Ondansetron HCl (Zofran Odt) 4 mg PO Q8H PRN PRN Reason: Nausea/Vomiting Last Admin: 02/24/17 19:56 Dose: 4 mg - Constitutional Appears: No Acute Distress - Head Exam Head Exam: ATRAUMATIC, NORMOCEPHALIC - Eye Exam Eye Exam: EOMI Pupil Exam: PERRL - ENT Exam ENT Exam: Mucous Membranes Moist - Respiratory Exam Respiratory Exam: Decreased Breath Sounds, Rales. absent: Accessory Muscle Use , Respiratory Distress Additional comments: on 2L NC, decreased breath sounds at the bases bilaterally - Cardiovascular Exam Cardiovascular Exam: REGULAR RHYTHM - GI/Abdominal Exam GI & Abdominal Exam: Soft, Normal Bowel Sounds. absent: Distended, Tenderness Additional comments: obese abdomen - Extremities Exam Extremities Exam: Pedal Edema. absent: Calf Tenderness, Tenderness Additional comments: mild +1 pedal edema on the right lower extremity, none on the left - Neurological Exam Neurological Exam: Alert, Awake, Oriented x3 - Skin Skin Exam: Dry, Intact, Normal Color, Warm Assessment and Plan - Assessment and Plan (Free Text) Assessment: The patient is a 71 y/o woman with PMHx of CHF systolic dysfunctions, RA, HTN, CAD, Hypothyroidism recent admitted in telemetry due to CHF exacerabtion and pneumonia ( resolved ); is admitted in TCU for deconditioning and generalized weakness for completing rehab, reaching, strength, ROM, and safe ambulation Plan: 1)Decondintioning Admit to TCU PT/OT eval and treatment Will continue to monitor Six minute walk test ordered 2)Systolic Heart Failure Exacerbation (NYHA IIIC) Compensated EKG: LBBB (none prior available for comparison) ProBNP: 7950 improved Troponin I: negative x2 ECHO: LVEF of 10-15%, severe left ventricular dilation, moderate left atrial dilation, moderate-severe mitral and tricuspid regurg. Roof Tile Layer: Dr. Palacio, cosnulted CXR: mild pulmonary vascular congestion with questionable small left pleural effusion, cardiomegaly. -Dr. Palacio will follow up with pt for possible outpatient AICD implant -PT/OT eval/treat 3) Pneumonia with Bilateral Pleural Effusions -Resolved -Day 4: of azithromycin -complete treatment with Zithromax today 4) HTN, controlled -low NA diet -hold Losartan (as per cardiology recommendation) -BP WNL 5)Hypothyroidism -chronic, controlled -c/w home med synthroid 6)Rheumatoid Arthritis -chronic, controlled -hold meds 7)DVT Prophylaxis -Lovenox 40 SC daily
[2017-02-25] MEDS: Enoxaparin 40 mg Syringe SC SCH (08:37)
[2017-02-26] MEDS: Levothyroxine 50 MCG TAB PO SCH (05:32)
[2017-02-26] MEDS: Enoxaparin 40 mg Syringe SC SCH (09:02)
[2017-02-26] MEDS: Docusate-Senna 50 mg-8.6 mg Tab PO SCH (21:28)
[2017-02-27] MEDS: Levothyroxine 50 MCG TAB PO SCH (06:13)
[2017-02-27] MEDS: Enoxaparin 40 mg Syringe SC SCH (08:24)
[2017-02-27] MEDS: Pantoprazole 20 mg EC Tab PO SCH (15:00)
[2017-02-27] MEDS: Docusate-Senna 50 mg-8.6 mg Tab PO SCH (21:47)
[2017-02-28] MEDS: Levothyroxine 50 MCG TAB PO SCH (05:44)
[2017-02-28] MEDS: Enoxaparin 40 mg Syringe SC SCH (09:02)
[2017-02-28] MEDS: Pantoprazole 20 mg EC Tab PO SCH (09:03)
[2017-02-28] MEDS: Docusate-Senna 50 mg-8.6 mg Tab PO SCH (21:39)
[2017-03-01] MEDS: Levothyroxine 50 MCG TAB PO SCH (06:00)
[2017-03-01] MEDS: Pantoprazole 20 mg EC Tab PO SCH (09:03)
[2017-03-01] MEDS: Enoxaparin 40 mg Syringe SC SCH (09:03)
--- NOTE | 2017-03-01 14:14 | CP.PCM.PN ---
Subjective - Date & Time of Evaluation Date of Evaluation: 03/01/17 Time of Evaluation: 07:00 - Subjective Subjective: Patient seen and examined at bedside reported felling well tired after physical therapy, reported good appetite, c/o nausea, controlled with zofran, she denied vomits, she also denied chest pain palpitation SOB o at rest urinary problems, last bowel movement yesterday. Objective - Vital Signs/Intake and Output Vital Signs (last 24 hours): Temp Pulse Resp BP Pulse Ox 98.1 F 86 20 105/70 98 03/01/17 09:00 03/01/17 09:00 03/01/17 09:00 03/01/17 09:00 03/01/17 08:39 - Medications Medications: Current Medications Atorvastatin Calcium (Lipitor) 40 mg PO DAILY@2100 [facility] Last Admin: 02/28/17 21:38 Dose: 40 mg Duloxetine HCl (Cymbalta) 60 mg PO DAILY [facility] Last Admin: 03/01/17 09:04 Dose: 60 mg Enoxaparin Sodium (Lovenox) 40 mg SC DAILY [facility] PRN Reason: Protocol Last Admin: 03/01/17 09:03 Dose: 40 mg Famotidine (Pepcid) 20 mg PO DAILY [facility] Last Admin: 03/01/17 09:04 Dose: 20 mg Ibuprofen (Motrin Tab) 600 mg PO Q8 PRN PRN Reason: Pain, Mild (1-3) Levothyroxine Sodium (Synthroid) 50 mcg PO DAILY@0630 [facility] Last Admin: 03/01/17 06:00 Dose: 50 mcg Ondansetron HCl (Zofran Odt) 4 mg PO Q8H PRN PRN Reason: Nausea/Vomiting Last Admin: 02/27/17 08:24 Dose: 4 mg Pantoprazole Sodium (Protonix Ec Tab) 20 mg PO DAILY [facility] Last Admin: 03/01/17 09:03 Dose: 20 mg Senna/Docusate Sodium (Senokot S 50 Mg-8.6 Mg) 1 tab PO HS [facility] Last Admin: 02/28/17 21:39 Dose: 1 tab - Head Exam Additional comments: TRAUMATIC, NORMOCEPHALIC - Eye Exam Eye Exam: EOMI Pupil Exam: PERRL - ENT Exam ENT Exam: Mucous Membranes Moist - Respiratory Exam Respiratory Exam: Decreased Breath Sounds, Rales. absent: Accessory Muscle Use , Respiratory Distress Additional comments: on 2L NC, decreased breath sounds at the bases bilaterally - Cardiovascular Exam Cardiovascular Exam: REGULAR RHYTHM - GI/Abdominal Exam GI & Abdominal Exam: Soft, Normal Bowel Sounds. absent: Distended, Tenderness Additional comments: obese abdomen - Extremities Exam Extremities Exam: Pedal Edema. absent: Calf Tenderness, Tenderness Additional comments: mild +1 pedal edema on the right lower extremity, none on the left - Neurological Exam Neurological Exam: Alert, Awake, Oriented x3 - Skin Skin Exam: Dry, Intact, Normal Color, Warm Assessment and Plan - Assessment and Plan (Free Text) Assessment: The patient is a 71 y/o woman with PMHx of CHF systolic dysfunctions, RA, HTN, CAD, Hypothyroidism recent admitted in telemetry due to CHF exacerabtion and pneumonia ( resolved ); is admitted in TCU for deconditioning and generalized weakness for completing rehab, reaching, strength, ROM, and safe ambulation Plan: 1)Decondintioning improving TCU cont PT/OT eval and treatment Will continue to monitor Six minute walk O2 sat went down at 83 % after 3 minuts af walk and went to 94 with Oxygen 2 L/min Anticipated discharge Friday to subacute rehab/ vs home with assistance 2)Systolic Heart Failure Exacerbation (NYHA IIIC) Compensated EKG: LBBB ECHO: LVEF of 10-15%, severe left ventricular dilation, moderate left atrial dilation, moderate-severe mitral and tricuspid regurg. Head Sampler: Dr. Palacio, cosnulted CXR: mild pulmonary vascular congestion with questionable small left pleural effusion, cardiomegaly. -Dr. Palacio will follow up with pt for possible outpatient AICD implant -PT/OT eval/treat 3) Pneumonia with Bilateral Pleural Effusions -Resolved 4) HTN, controlled -low NA diet -hold Losartan (as per cardiology recommendation) -BP WNL 5)Hypothyroidism -chronic, controlled -c/w home med synthroid 6)Rheumatoid Arthritis -chronic, controlled -hold meds 7)DVT Prophylaxis -Lovenox 40 SC daily
[2017-03-01] MEDS: Docusate-Senna 50 mg-8.6 mg Tab PO SCH (21:46)
[2017-03-02] MEDS: Levothyroxine 50 MCG TAB PO SCH (06:01)
[2017-03-02 08:09] LABS: MEAN CORPUSCULAR HEMOGLOBIN 31.2 pg (27.0-31.0); RED CELL DISTRIBUTION WIDTH 15.6 % (11.5-14.5); WHITE BLOOD COUNT 6.6 K/uL (4.8-10.8)
[2017-03-02 08:11] LABS: MEAN CELL VOLUME 97.7 fl (81.0-99.0)
[2017-03-02 08:32] LABS: BLOOD UREA NITROGEN 13 mg/dl (7-17); CALCIUM 8.6 mg/dL (8.4-10.2); CARBON DIOXIDE 32 mmol/L (22-30); CHLORIDE 103 mmol/L (98-107); GFR AFRICAN-AMERICAN > 60; GLUCOSE,RANDOM 84 mg/dL (65-105); SODIUM 144 mmol/l (132-148)
[2017-03-02] MEDS: Enoxaparin 40 mg Syringe SC SCH (09:37)
[2017-03-02] MEDS: Pantoprazole 20 mg EC Tab PO SCH (09:38)
--- NOTE | 2017-03-02 15:22 | CP.PCM.PCO ---
Physician Communication Note - Physician Communication Note Physician Communication Note: Kira Randall Addendum Addendum: 03/02/17 15:19 Notified by nursing that patient had a measured temperature of 100.4 (not documented in nursing notes or under 'vital signs' in [facility]) at approximately 13:00 this afternoon. She did not notify the team at that time and patient was appropriately provided Tylenol and currently temperature is 99 and HR-84. I informed the nurse at this time there is no indication for cultures. 03/02/17 15:23
[2017-03-02 16:19] VITALS: RESP 20
[2017-03-02] MEDS: Docusate-Senna 50 mg-8.6 mg Tab PO SCH (21:21)
[2017-03-03] MEDS: Levothyroxine 50 MCG TAB PO SCH (05:52)
[2017-03-03] MEDS: Enoxaparin 40 mg Syringe SC SCH (08:35)
[2017-03-03] MEDS: Pantoprazole 20 mg EC Tab PO SCH (08:35)
[2017-03-03] MEDS: Docusate-Senna 50 mg-8.6 mg Tab PO SCH (22:00)
[2017-03-04] MEDS: Levothyroxine 50 MCG TAB PO SCH (06:36)
--- NOTE | 2017-03-04 08:44 | CP.PCM.DIS ---
Provider - Provider Date of Admission: 02/21/17 18:49 Attending physician: Sandra Martin MD Primary care physician: Bryson Isbell MD Time Spent in preparation of Discharge (in minutes): 30 Diagnosis - Discharge Diagnosis (1) CHF exacerbation Status: Acute (2) CHF (NYHA class III, ACC/AHA stage C) Status: Chronic (3) Community acquired pneumonia Status: Resolved Hospital Course - Lab Results Lab Results: Most Recent Lab Values WBC 6.6 K/uL (4.8-10.8) 03/02/17 07:30 RBC 4.10 Mil/uL (3.80-5.20) 03/02/17 07:30 Hgb 12.8 g/dL (12.0-16.0) 03/02/17 07:30 Hct 40.0 % (34.0-47.0) 03/02/17 07:30 MCV 97.7 fl (81.0-99.0) D 03/02/17 07:30 MCH 31.2 pg (27.0-31.0) H 03/02/17 07:30 MCHC 32.0 g/dL (33.0-37.0) L 03/02/17 07:30 RDW 15.6 % (11.5-14.5) H 03/02/17 07:30 Plt Count 190 K/uL (130-400) 03/02/17 07:30 Sodium 144 mmol/l (132-148) 03/02/17 07:30 Potassium 4.0 MMOL/L (3.6-5.0) 03/02/17 07:30 Chloride 103 mmol/L (98-107) 03/02/17 07:30 Carbon Dioxide 32 mmol/L (22-30) H 03/02/17 07:30 Anion Gap 13 (10-20) 03/02/17 07:30 BUN 13 mg/dl (7-17) 03/02/17 07:30 Creatinine 0.7 mg/dL (0.7-1.2) 03/02/17 07:30 Est GFR ( Amer) > 60 03/02/17 07:30 Est GFR (Non-Af Amer) > 60 03/02/17 07:30 Random Glucose 84 mg/dL (65-105) 03/02/17 07:30 Calcium 8.6 mg/dL (8.4-10.2) 03/02/17 07:30 - Hospital Course Hospital Course: The patient is a 71 y/o woman with PMHx of CHF (NYHA IIIC) systolic dysfunctions , RA, HTN, CAD, Hypothyroidism recent admitted in telemetry due to CHF exacerabtion and pneumonia (resolved); is admitted in TCU for deconditioning and generalized weakness for completing rehab, reaching, strength, ROM, and safe ambulation. The patient reports improvement with physical therapy but still requires skilled physical therapy to increase activity and strength. The patient completed IV antibiotic treatment for pneumonia which has resolved. The patient continues to have some decreased breath sounds with crackles but is more likely from CHF. The patient had a six minute walk test which resulted in desaturation to 83% after 3 minutes and an increase to 94% after receiving 2L O2. The patient continues to require supplemental O2. The patient has been seen, examined, and deemed medically fit with no contraindication for discharge to subacute rehab facility. The patient will be discharged to [place] to continue physical therapy. The patient has a script for home O2 in her chart for when the patient returns to her home. The patient may resume home medications including rheumatoid arthritis medications upon arrival to [place]. - Date & Time of H&P Date of H&P: 02/22/17 Time of H&P: 07:54 Discharge Exam - Head Exam Head Exam: ATRAUMATIC, NORMOCEPHALIC - Eye Exam Eye Exam: EOMI Pupil Exam: PERRL - ENT Exam ENT Exam: Mucous Membranes Moist - Respiratory Exam Respiratory Exam: Decreased Breath Sounds, Rales. absent: Accessory Muscle Use , Chest Wall Tenderness, Prolonged Expiratory Phase, Rhonchi, Wheezes, Respiratory Distress, Stridor Additional comments: on 2L NC, decreased breath sounds at the bases bilaterally - Cardiovascular Exam Cardiovascular Exam: REGULAR RHYTHM. absent: Tachycardia - GI/Abdominal Exam GI & Abdominal Exam: Normal Bowel Sounds, Soft. 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
[2017-03-04] MEDS: Enoxaparin 40 mg Syringe SC SCH (09:01)
[2017-03-04] MEDS: Pantoprazole 20 mg EC Tab PO SCH (09:02)
[2017-03-04 10:42] VITALS: BP 116/66; PULSE 93; TEMP 98.3; O2SAT 95
== END 2017-03-04 12:30 | DRG 293 ==
LOC: H.TCU 18:49
PROVIDERS: ADMIT Family Medicine Geriatric Medicine; ATTEND Family Medicine Geriatric Medicine
PROC: F07Z9FZ Gait Training/Functional Ambulation Treatment using Assistive, Adaptive, Supportive or Protective Equipment (ICD-10-PCS; principal; 2017-02-21)
PROC: F08Z4FZ Home Management Treatment using Assistive, Adaptive, Supportive or Protective Equipment (ICD-10-PCS; 2017-02-21)
PROC: F07M6FZ Therapeutic Exercise Treatment of Musculoskeletal System - Whole Body using Assistive, Adaptive, Supportive or Protective Equipment (ICD-10-PCS; 2017-02-22)
DX: I11.0 Hypertensive heart disease with heart failure (principal); I50.22 Chronic systolic (congestive) heart failure; M06.9 Rheumatoid arthritis, unspecified; I08.1 Rheumatic disorders of both mitral and tricuspid valves; E03.9 Hypothyroidism, unspecified; I25.10 Atherosclerotic heart disease of native coronary artery without angina pectoris; R53.1 Weakness; I25.2 Old myocardial infarction; Z87.891 Personal history of nicotine dependence; Z87.01 Personal history of pneumonia (recurrent)

== ENCOUNTER 2019-03-09 19:51 | Observation (INO) | payer MEDICARE, OTHER ==
[2019-03-09 19:51] VITALS: BMI 29.0
[2019-03-09 20:50] LABS: BASO % 0.6 % (0.0-2.0); EOS # 0.3 K/uL (0.0-0.7); EOS % 4.2 % (0.0-4.0); HEMOGLOBIN 11.1 g/dL (12.0-16.0); LYMPH # 1.2 K/uL (1.0-4.3); LYMPH % 14.7 % (20.0-40.0); MEAN CELL VOLUME 87.8 fl (81.0-99.0); MEAN CORPUSCULAR HGB CONC 31.9 g/dL (33.0-37.0); MEAN PLATELET VOLUME 8.6 fl (7.2-11.7); MONO # 0.4 K/uL (0.0-0.8); MONO % 4.9 % (0.0-10.0); NEUT # 6.1 K/uL (1.8-7.0); NEUT % 75.6 % (50.0-75.0); NRBC % 0.1 % (0.0-0.0); RBC 3.96 Mil/uL (3.80-5.20); WHITE BLOOD COUNT 8.1 K/uL (4.8-10.8)
--- NOTE | 2019-03-09 21:31 | ED PDOC ---
HPI: General Adult Time Seen by Provider: 03/09/19 20:01 Chief Complaint (Nursing): Back Pain Chief Complaint (Provider): Body Pains History Per: Patient History/Exam Limitations: no limitations Onset/Duration Of Symptoms: Days (x 1 week) Current Symptoms Are (Timing): Still Present Recently: Treated By A Physician Additional Complaint(s): 73 year old female with a history of HTN, CAD, hypothyroidism, dyslipidemia, rheumatoid arthritis and AICD presents to the ED for evaluation of severe, diffuse body pain worsening over 1 week. She ranks pain as 10/10 and describes it as constant. While visiting her cleaning specialist one week ago, patient was instructed to suspend use of Celebrex to concern for other related complications. Since then, she is experiencing severe pain due to her rheumatoid arthritis. Patient takes Tramadol with no relief. Patient has limited ability to ambulate and is unable to hold a spoon or fork due to contractures in her hands which were present previously. However, they have also worsened over the last week. Denies other complaints. PMD: Dr. Bryson Isbell Past Medical History Reviewed: Historical Data, Nursing Documentation, Vital Signs Vital Signs: Last Vital Signs Temp 99.2 F 03/09/19 19:53 Pulse 84 03/09/19 19:53 Resp 18 03/09/19 19:53 BP 128/78 03/09/19 19:53 Pulse Ox 99 03/09/19 19:53 - Medical History PMH: Anxiety, Arthritis (Rheumatoid), CHF, Gastritis, HTN, Hypothyroidism Denies: HIV, Chronic Kidney Disease - Surgical History Other surgeries: AICD placement - Family History Family History: States: Unknown Family Hx - Social History Current smoker - smoking cessation education provided: No Alcohol: None Drugs: Denies - Home Medications Home Medications: Ambulatory Orders Medication Instructions Recorded Levothyroxine [Synthroid] 50 mcg PO DAILY 02/17/17 Losartan [Cozaar] 25 mg PO DAILY 02/17/17 Atorvastatin [Lipitor] 40 mg PO DAILY 02/21/17 Apixaban [Eliquis] 5 mg PO DAILY 03/09/19 Pilocarpine [Salagen Tab] 5 mg PO DAILY 03/09/19 traMADol [Ultram] 50 mg PO PRN PRN 03/09/19 - Allergies Allergies/Adverse Reactions: Allergies Allergy/AdvReac Type Severity Reaction Status Date / Time No Known Allergies Allergy Verified 02/21/17 18:49 Review of Systems ROS Statement: Except As Marked, All Systems Reviewed And Found Negative Constitutional: Positive for: Other (severe, total body pains) Musculoskeletal: Positive for: Hand Pain (severe contractures in hands) Physical Exam - Reviewed Nursing Documentation Reviewed: Yes Vital Signs Reviewed: Yes - Physical Exam Appears: Positive for: Uncomfortable Head Exam: Positive for: ATRAUMATIC, NORMAL INSPECTION, NORMOCEPHALIC Skin: Positive for: Warm, Dry, Pallor Eye Exam: Positive for: EOMI, Normal appearance, PERRL Neck: Positive for: Normal, Painless ROM, Supple Cardiovascular/Chest: Positive for: Regular Rate, Rhythm. Negative for: Murmur Respiratory: Positive for: Normal Breath Sounds. Negative for: Respiratory Distress Gastrointestinal/Abdominal: Positive for: Normal Exam, Soft. Negative for: Tenderness, Mass, Guarding Back: Positive for: Normal Inspection. 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 Negative for: Motor/Sensory Deficits - Laboratory Results Result Diagrams: 03/09/19 20:22 03/09/19 21:23 Lab Results: Total Bilirubin Cancelled 03/09/19 20:22 AST Cancelled 03/09/19 20:22 ALT Cancelled 03/09/19 20:22 Alkaline Phosphatase Cancelled 03/09/19 20:22 Total Protein Cancelled 03/09/19 20:22 Albumin Cancelled 03/09/19 20:22 Globulin Cancelled 03/09/19 20:22 Albumin/Globulin Ratio Cancelled 03/09/19 20:22 - ECG O2 Sat by Pulse Oximetry: 99 (RA) Pulse Ox Interpretation: Normal Medical Decision Making Medical Decision Makin:02 Impression: 73 year old female with acute exacerbation of rheumatoid arthritis Initial Plan: --CMP --CBC --CPK --ESR --Magnesium --Urine dip --Morphine 2 mg IVP --Solu-medrol 125 mg IVP --Toradol 10mg IV 22:54 Patient reported persistent pain despite being given multiple medications Labs significant for marked elevation in ESR. Patient will be admitted to observation for further pain management. Diagnosis is acute flare up of rheu matoid arthritis. Scribe Attestation: Documented by Alisa Davalos, acting as a scribe Radha Weiss MD Provider Scribe Attestation: All medical record entries made by the Scribe were at my direction and personally dictated by me. I have reviewed the chart and agree that the record accurately reflects my personal performance of the history, physical exam, medical decision making, and the department course for this patient. I have also personally directed, reviewed, and agree with the discharge instructions and disposition Disposition - Clinical Impression Clinical Impression: Rheumatoid arthritis flare - Patient ED Disposition Is Patient to be Admitted: Yes - Disposition Disposition Time: 22:55 Condition: FAIR - Pt Status Changed To: Hospital Disposition Of: Observation
[2019-03-09 21:41] LABS: ALB/GLOB RATIO 0.9 (1.0-2.1); ALBUMIN 3.4 g/dL (3.5-5.0); ALT/SGPT 17 U/L (9-52); AST/SGOT 23 U/L (14-36); BLOOD UREA NITROGEN 21 mg/dl (7-17); CALCIUM 9.1 mg/dL (8.4-10.2); GFR NON-AFRICAN AMERICAN > 60
[2019-03-09] MEDS ORDERED: Oxycodone/Acetaminophen 5/325 mg Tab PO PRN (23:42)
--- NOTE | 2019-03-10 00:08 | CP.PCM.HP ---
History of Present Illness - History of Present Illness History of Present Illness: 73 year old female with a history of CHF systolic dysfunction, RA, HTN, CAD, Hypothyroidism and recent AICD placement presents to the ED c/o severe diffuse body pain worsening over last week. She was instructed to stop use of Celebrex by her hide buyer due to concern for other related complications. Since then, she is experiencing severe pain and generalized stiffness due to her rheumatoid arthritis. She took Tramadol at home with no relief. Otherwise she denies fevers, nausea, vomits diarrhea, chest pain, sob, palpitations, leg edema, urinary sx or sleeping problems. Of note patient is s/p AICD placement 02/23/19. PMD: Dr. Isbell Environmental Issues Instructor: Dr Conte Rheum: Dr. Mata PMH: CAD, [place] (3 years ago s/p cardiac cath but no stent placement as per patient), HTN, RA and hypothyroidism. PSH: AICD placement 02/23/2019 Meds: see reconciled list below Allergies: NKDA SH: smoker ( quit 20+ years ago), denies etoh, drugs Present on Admission - Present on Admission Any Indicators Present on Admission: No Review of Systems - Review of Systems All systems: reviewed and no additional remarkable complaints except (HPI) Past Patient History - Past Medical History & Family History Past Medical History?: Yes - Past Social History Alcohol: None Drugs: Denies - CARDIAC Hx Congestive Heart Failure: Yes Hx Hypertension: Yes - PULMONARY Hx Respiratory Disorders: No - NEUROLOGICAL Hx Neurological Disorder: No - HEENT Hx HEENT Problems: No - RENAL Hx Chronic Kidney Disease: No - ENDOCRINE/METABOLIC Hx Hypothyroidism: Yes - HEMATOLOGICAL/ONCOLOGICAL Hx Human Immunodeficiency Virus (HIV): No - INTEGUMENTARY Hx Dermatological Problems: No - MUSCULOSKELETAL/RHEUMATOLOGICAL Hx Arthritis: Yes (Rheumatoid) - GASTROINTESTINAL Hx Gastritis: Yes - GENITOURINARY/GYNECOLOGICAL Hx Genitourinary Disorders: No - PSYCHIATRIC Hx Anxiety: Yes - SURGICAL HISTORY Hx Cardiac Catheterization: Yes - ANESTHESIA Hx Anesthesia: Yes Hx Anesthesia Reactions: No Hx Malignant Hyperthermia: No Meds Allergies/Adverse Reactions: Allergies Allergy/AdvReac Type Severity Reaction Status Date / Time No Known Allergies Allergy Verified 02/21/17 18:49 Physical Exam - Constitutional Appears: No Acute Distress - Head Exam Head Exam: NORMAL INSPECTION - Eye Exam Eye Exam: EOMI, PERRL - ENT Exam ENT Exam: Mucous Membranes Moist - Neck Exam Neck exam: Positive for: Full Rom. Negative for: Lymphadenopathy, Tenderness, Thyromegaly - Respiratory Exam Respiratory Exam: Clear to Auscultation Bilateral, NORMAL BREATHING PATTERN. absent: Rales, Wheezes, Respiratory Distress - Cardiovascular Exam Cardiovascular Exam: REGULAR RHYTHM, +S1, +S2. absent: Tachycardia, Systolic Murmur - GI/Abdominal Exam GI & Abdominal Exam: Normal Bowel Sounds, Soft. absent: Distended, Tenderness - Extremities Exam Extremities exam: Negative for: calf tenderness, pedal edema Additional comments: UE: ulnar deviation bilaterally - Neurological Exam Neurological exam: Alert, CN II-XII Intact, Oriented x3 Results - Vital Signs Recent Vital Signs: Last Vital Signs Temp 99.2 F 03/09/19 19:53 Pulse 84 03/09/19 19:53 Resp 18 03/09/19 19:53 BP 128/78 03/09/19 19:53 Pulse Ox 99 03/09/19 21:45 - Labs Result Diagrams: 03/09/19 20:22 03/09/19 21:23 Labs: Laboratory Results - last 24 hr 03/09/19 03/09/19 03/09/19 20:22 20:22 21:23 WBC 8.1 RBC 3.96 Hgb 11.1 L Hct 34.8 MCV 87.8 D MCH 28.0 MCHC 31.9 L RDW 16.0 H Plt Count 251 MPV 8.6 Neut % (Auto) 75.6 H Lymph % (Auto) 14.7 L [place] % (Auto) 4.9 Eos % (Auto) 4.2 H Baso % (Auto) 0.6 Neut # (Auto) 6.1 Lymph # (Auto) 1.2 [place] # (Auto) 0.4 Eos # (Auto) 0.3 Baso # (Auto) 0.0 ESR 75 H Sodium Cancelled 135 Potassium Cancelled 4.5 Chloride Cancelled 100 Carbon Dioxide Cancelled 27 Anion Gap Cancelled 13 BUN Cancelled 21 H Creatinine Cancelled 0.9 Est GFR ( Amer) Cancelled > 60 Est GFR (Non-Af Amer) Cancelled > 60 Random Glucose Cancelled 103 Calcium Cancelled 9.1 Magnesium Cancelled Total Bilirubin Cancelled 0.8 AST Cancelled 23 ALT Cancelled 17 Alkaline Phosphatase Cancelled 88 Total Creatine Kinase Cancelled Total Protein Cancelled 7.0 Albumin Cancelled 3.4 L Globulin Cancelled 3.6 Albumin/Globulin Ratio Cancelled 0.9 L 03/09/19 21:37 WBC RBC Hgb Hct MCV MCH MCHC RDW Plt Count MPV Neut % (Auto) Lymph % (Auto) [place] % (Auto) Eos % (Auto) Baso % (Auto) Neut # (Auto) Lymph # (Auto) [place] # (Auto) Eos # (Auto) Baso # (Auto) ESR Sodium Potassium Chloride Carbon Dioxide Anion Gap BUN Creatinine Est GFR ( Amer) Est GFR (Non-Af Amer) Random Glucose Calcium Magnesium 2.0 Total Bilirubin AST ALT Alkaline Phosphatase Total Creatine Kinase < 20 L Total Protein Albumin Globulin Albumin/Globulin Ratio Assessment & Plan - Assessment and Plan (Free Text) Assessment: 73 year old female admitted with intractable diffuse body pain. Plan: Rheumatoid Arthritis/ intractable body pain - likely 2/2 acute exacerbation of RA - being off pain medications for last 1 week - ESR elevated - admit to med/surg - pain management - labs in am - PT/OT eval Systolic Heart Failure Exacerbation (NYHA IIIC) - ECHO 02/16/17: LVEF of 10-15%, severe left ventricular dilation, moderate left atrial dilation, moderate-severe mitral and tricuspid regurg. - s/p AICD on 02/23/19 - stable, neg CP, sob, cough - last ProBNP on chart: 8139 (2016) - resume home meds HTN, controlled - continue home meds Hypothyroidism - chronic, controlled - TSH 10/2018: 2.24 - c/w home med synthroid DVT Prophylaxis - On [place] Case seen and examined with Dr Nicolas.
[2019-03-10 05:13] LABS: BASO % 0.2 % (0.0-2.0); EOS % 0.1 % (0.0-4.0); HEMOGLOBIN 11.6 g/dL (12.0-16.0); LYMPH # 0.7 K/uL (1.0-4.3); LYMPH % 11.4 % (20.0-40.0); MEAN CELL VOLUME 88.6 fl (81.0-99.0); MEAN CORPUSCULAR HEMOGLOBIN 27.9 pg (27.0-31.0); MEAN CORPUSCULAR HGB CONC 31.5 g/dL (33.0-37.0); MEAN PLATELET VOLUME 8.4 fl (7.2-11.7); MONO # 0.1 K/uL (0.0-0.8); MONO % 1.1 % (0.0-10.0); NEUT # 5.5 K/uL (1.8-7.0); NEUT % 87.2 % (50.0-75.0); RBC 4.17 Mil/uL (3.80-5.20); RED CELL DISTRIBUTION WIDTH 15.7 % (11.5-14.5); WHITE BLOOD COUNT 6.3 K/uL (4.8-10.8)
[2019-03-10 05:23] LABS: ALB/GLOB RATIO 0.9 (1.0-2.1); ALBUMIN 3.6 g/dL (3.5-5.0); ALT/SGPT 16 U/L (9-52); AST/SGOT 22 U/L (14-36); BLOOD UREA NITROGEN 24 mg/dl (7-17); CALCIUM 9.3 mg/dL (8.4-10.2); GFR NON-AFRICAN AMERICAN > 60
[2019-03-10] MEDS: Levothyroxine 50 MCG TAB PO SCH (06:32)
[2019-03-10] MEDS ORDERED: PILOCARPINE 5 MG PO SCH (13:00)
[2019-03-11] MEDS: Levothyroxine 50 MCG TAB PO SCH (05:51)
[2019-03-11 06:10] LABS: HEMOGLOBIN 10.9 g/dL (12.0-16.0); MEAN CELL VOLUME 87.4 fl (81.0-99.0); MEAN CORPUSCULAR HEMOGLOBIN 27.9 pg (27.0-31.0); RBC 3.89 Mil/uL (3.80-5.20); RED CELL DISTRIBUTION WIDTH 15.7 % (11.5-14.5)
[2019-03-11 06:25] LABS: BLOOD UREA NITROGEN 27 mg/dl (7-17); CALCIUM 9.5 mg/dL (8.4-10.2); GFR NON-AFRICAN AMERICAN > 60
--- NOTE | 2019-03-11 08:45 | CP.PCM.PN ---
Subjective - Date & Time of Evaluation Date of Evaluation: 03/11/19 Time of Evaluation: 08:30 Objective - Vital Signs/Intake and Output Vital Signs (last 24 hours): Temp Pulse Resp BP Pulse Ox 97.9 F 75 18 115/55 L 95 03/11/19 05:22 03/11/19 05:22 03/11/19 05:22 03/11/19 05:22 03/11/19 05:22 - Medications Medications: Current Medications Apixaban (Eliquis) 5 mg PO Q12H [facility]; Protocol Last Admin: 03/10/19 23:08 Dose: 5 mg Atorvastatin Calcium (Lipitor) 40 mg PO DAILY [facility] Last Admin: 03/10/19 10:15 Dose: 40 mg Home Med (Pilocarpine [Salagen Tab]) 5 mg PO QID [facility] Last Admin: 03/10/19 23:08 Dose: 5 mg Levothyroxine Sodium (Synthroid) 50 mcg PO DAILY@0630 [facility] Last Admin: 03/11/19 05:51 Dose: 50 mcg Losartan Potassium (Cozaar) 25 mg PO DAILY [facility] Last Admin: 03/10/19 10:14 Dose: 25 mg Methylprednisolone (Solu-Medrol) 100 mg IV ONCE ONE Stop: 03/11/19 08:46 Morphine Sulfate (Morphine) 2 mg IVP Q4 PRN PRN Reason: Pain, severe (8-10) Oxycodone/Acetaminophen (Percocet 5/325 Mg Tab) 1 tab PO Q4 PRN PRN Reason: Pain, moderate (4-7) Stop: 03/12/19 23:43 Pantoprazole Sodium (Protonix Inj) 40 mg IVP DAILY [facility] Last Admin: 03/10/19 10:15 Dose: 40 mg Pregabalin (Lyrica) 50 mg PO TID [facility] Last Admin: 03/10/19 17:51 Dose: 50 mg Tramadol HCl (Ultram) 50 mg PO Q4 PRN PRN Reason: Pain, Mild (1-3) - Labs Labs: 03/11/19 05:08 03/11/19 05:08
[2019-03-11 08:59] VITALS: RESP 20
[2019-03-11] MEDS ORDERED: methylPREDNISolone 100 MG in Sodium Chloride 0.9% 50 ML IV ONE (09:00)
--- NOTE | 2019-03-11 09:32 | CP.PCM.DIS ---
<Angie Loco - Last Filed: 03/11/19 11:07> Provider - Provider Date of Admission: 03/09/19 22:54 Attending physician: Renee Nicolas MD Primary care physician: Bryson Isbell MD Time Spent in preparation of Discharge (in minutes): 30 Diagnosis - Discharge Diagnosis (1) Rheumatoid arthritis flare Status: Acute Comment: Admit to med/surg for management of pain. ESR was elevated. Solumedrol 100mg IV x3 doses. [facility] Course - Lab Results Lab Results: Most Recent Lab Values WBC 14.0 K/uL (4.8-10.8) H D 03/11/19 05:08 RBC 3.89 Mil/uL (3.80-5.20) 03/11/19 05:08 Hgb 10.9 g/dL (12.0-16.0) L 03/11/19 05:08 Hct 34.0 % (34.0-47.0) 03/11/19 05:08 MCV 87.4 fl (81.0-99.0) 03/11/19 05:08 MCH 27.9 pg (27.0-31.0) 03/11/19 05:08 MCHC 32.0 g/dL (33.0-37.0) L 03/11/19 05:08 RDW 15.7 % (11.5-14.5) H 03/11/19 05:08 Plt Count 288 K/uL (130-400) 03/11/19 05:08 MPV 8.4 fl (7.2-11.7) 03/10/19 05:07 Neut % (Auto) 87.2 % (50.0-75.0) H 03/10/19 05:07 Lymph % (Auto) 11.4 % (20.0-40.0) L 03/10/19 05:07 Lynn % (Auto) 1.1 % (0.0-10.0) 03/10/19 05:07 Eos % (Auto) 0.1 % (0.0-4.0) 03/10/19 05:07 Baso % (Auto) 0.2 % (0.0-2.0) 03/10/19 05:07 Neut # (Auto) 5.5 K/uL (1.8-7.0) 03/10/19 05:07 Lymph # (Auto) 0.7 K/uL (1.0-4.3) L 03/10/19 05:07 Lynn # (Auto) 0.1 K/uL (0.0-0.8) 03/10/19 05:07 Eos # (Auto) 0.0 K/uL (0.0-0.7) 03/10/19 05:07 Baso # (Auto) 0.0 K/uL (0.0-0.2) 03/10/19 05:07 ESR 75 mm/hr (0-30) H 03/09/19 20:22 Sodium 137 mmol/l (132-148) 03/11/19 05:08 Potassium 4.9 MMOL/L (3.6-5.0) 03/11/19 05:08 Chloride 105 mmol/L (98-107) 03/11/19 05:08 Carbon Dioxide 24 mmol/L (22-30) 03/11/19 05:08 Anion Gap 13 (10-20) 03/11/19 05:08 BUN 27 mg/dl (7-17) H 03/11/19 05:08 Creatinine 0.7 mg/dl (0.7-1.2) 03/11/19 05:08 Est GFR ( Amer) > 60 03/11/19 05:08 Est GFR (Non-Af Amer) > 60 03/11/19 05:08 Random Glucose 146 mg/dL (65-105) H 03/11/19 05:08 Calcium 9.5 mg/dL (8.4-10.2) 03/11/19 05:08 Magnesium 2.0 MG/DL (1.6-2.3) 03/09/19 21:37 Total Bilirubin 0.8 mg/dl (0.2-1.3) 03/10/19 05:07 AST 22 U/L (14-36) 03/10/19 05:07 ALT 16 U/L (9-52) 03/10/19 05:07 Alkaline Phosphatase 88 U/L (38-126) 03/10/19 05:07 Total Creatine Kinase < 20 U/L (30-135) L 03/09/19 21:37 Total Protein 7.4 G/DL (6.3-8.2) 03/10/19 05:07 Albumin 3.6 g/dL (3.5-5.0) 03/10/19 05:07 Globulin 3.9 gm/dL (2.2-3.9) 03/10/19 05:07 Albumin/Globulin Ratio 0.9 (1.0-2.1) L 03/10/19 05:07 - Hospital Course Hospital Course: 73 year old female admitted with intractable diffuse body pain secondary to Rheumatoid arthritis. Admitted to Med/Surg, hemodynamically stable during her stay. Patient's pain was better controlled during her stay. She was given Solumedrol 100mg x3 doses in total during her stay. Was started on Lyrica 50 mg TID, Ultram for pain, and Pantoprazole 40mg daily. PT and OT was consulted. Patient discharged with prescription for Lyrica 50 TID and Prednisone 20mg po daily for 7 days until she sees her before school next week. Discharge Exam - Head Exam Head Exam: ATRAUMATIC, NORMAL INSPECTION, NORMOCEPHALIC - Eye Exam Eye Exam: Normal appearance - Respiratory Exam Respiratory Exam: Clear to PA & Lateral, NORMAL BREATHING PATTERN, UNREMARKABLE. absent: Accessory Muscle Use, Chest Wall Tenderness, Decreased Breath Sounds, Prolonged Expiratory Phase, Rales, Rhonchi, Wheezes, Respiratory Distress, Stridor - Cardiovascular Exam Cardiovascular Exam: +S1, +S2 Additional comments: Scar present on left upper chest secondary to AICD placement. - GI/Abdominal Exam GI & Abdominal Exam: Normal Bowel Sounds, Unremarkable - Extremities Exam Additional comments: Nelson-neck deformity bilateral upper extremities; Right knee tender to touch at upper portion of the knee, non-erythematous; Right lower leg has muscle wasting - Neurological Exam Neurological exam: Alert, Oriented x3 - Psychiatric Exam Psychiatric exam: Normal Affect, Normal Mood - Skin Skin Exam: Dry, Intact, Normal Color, Warm Discharge Plan - Discharge Medications Prescriptions: predniSONE [predniSONE Tab] 20 mg PO DAILY 7 Days #7 tab Pregabalin [Lyrica] 50 mg PO TID 1 Days cap - Follow Up Plan Condition: GOOD Disposition: DISCHARGED TO HOME CARE Patient education suggested?: Yes Instructions: Rheumatoid Arthritis (DC) Additional Instructions: F/U with Rheumatology in 1 week. F/U with PMD Referrals: Demetris Trejo [Staff Provider] - Bryson Isbell MD [Primary Care Provider] - <Tania Hidalgo - Last Filed: 03/12/19 22:10> Provider - Provider Date of Admission: 03/09/19 22:54 Attending physician: eRnee Nicolas MD Primary care physician: Bryson Isbell MD Hospital Course - Lab Results Lab Results: Most Recent Lab Values WBC 14.0 K/uL (4.8-10.8) H D 03/11/19 05:08 RBC 3.89 Mil/uL (3.80-5.20) 03/11/19 05:08 Hgb 10.9 g/dL (12.0-16.0) L 03/11/19 05:08 Hct 34.0 % (34.0-47.0) 03/11/19 05:08 MCV 87.4 fl (81.0-99.0) 03/11/19 05:08 MCH 27.9 pg (27.0-31.0) 03/11/19 05:08 MCHC 32.0 g/dL (33.0-37.0) L 03/11/19 05:08 RDW 15.7 % (11.5-14.5) H 03/11/19 05:08 Plt Count 288 K/uL (130-400) 03/11/19 05:08 MPV 8.4 fl (7.2-11.7) 03/10/19 05:07 Neut % (Auto) 87.2 % (50.0-75.0) H 03/10/19 05:07 Lymph % (Auto) 11.4 % (20.0-40.0) L 03/10/19 05:07 Lynn % (Auto) 1.1 % (0.0-10.0) 03/10/19 05:07 Eos % (Auto) 0.1 % (0.0-4.0) 03/10/19 05:07 Baso % (Auto) 0.2 % (0.0-2.0) 03/10/19 05:07 Neut # (Auto) 5.5 K/uL (1.8-7.0) 03/10/19 05:07 Lymph # (Auto) 0.7 K/uL (1.0-4.3) L 03/10/19 05:07 Lynn # (Auto) 0.1 K/uL (0.0-0.8) 03/10/19 05:07 Eos # (Auto) 0.0 K/uL (0.0-0.7) 03/10/19 05:07 Baso # (Auto) 0.0 K/uL (0.0-0.2) 03/10/19 05:07 ESR 75 mm/hr (0-30) H 03/09/19 20:22 Sodium 137 mmol/l (132-148) 03/11/19 05:08 Potassium 4.9 MMOL/L (3.6-5.0) 03/11/19 05:08 Chloride 105 mmol/L (98-107) 03/11/19 05:08 Carbon Dioxide 24 mmol/L (22-30) 03/11/19 05:08 Anion Gap 13 (10-20) 03/11/19 05:08 BUN 27 mg/dl (7-17) H 03/11/19 05:08 Creatinine 0.7 mg/dl (0.7-1.2) 03/11/19 05:08 Est GFR ( Amer) > 60 03/11/19 05:08 Est GFR (Non-Af Amer) > 60 03/11/19 05:08 Random Glucose 146 mg/dL (65-105) H 03/11/19 05:08 Calcium 9.5 mg/dL (8.4-10.2) 03/11/19 05:08 Magnesium 2.0 MG/DL (1.6-2.3) 03/09/19 21:37 Total Bilirubin 0.8 mg/dl (0.2-1.3) 03/10/19 05:07 AST 22 U/L (14-36) 03/10/19 05:07 ALT 16 U/L (9-52) 03/10/19 05:07 Alkaline Phosphatase 88 U/L (38-126) 03/10/19 05:07 Total Creatine Kinase < 20 U/L (30-135) L 03/09/19 21:37 Total Protein 7.4 G/DL (6.3-8.2) 03/10/19 05:07 Albumin 3.6 g/dL (3.5-5.0) 03/10/19 05:07 Globulin 3.9 gm/dL (2.2-3.9) 03/10/19 05:07 Albumin/Globulin Ratio 0.9 (1.0-2.1) L 03/10/19 05:07 Attending/Attestation - Attestation I have personally seen and examined this patient.: Yes I have fully participated in the care of the patient.: Yes I have reviewed all pertinent clinical information, including history, physical exam and plan: Yes Notes (Text): agree with findings and plan as above
[2019-03-11 18:05] VITALS: BP 98/59; PULSE 84; TEMP 98; O2SAT 95
== END 2019-03-11 18:00 | disposition home health service (06) ==
LOC: H.ER 19:51 → H.ERHOLD 22:54 → H.TEL 03-10 05:29
PROVIDERS: ADMIT Internal Medicine; ATTEND Internal Medicine
DX: M06.9 Rheumatoid arthritis, unspecified (principal); I11.0 Hypertensive heart disease with heart failure; I50.22 Chronic systolic (congestive) heart failure; I25.10 Atherosclerotic heart disease of native coronary artery without angina pectoris; Z95.810 Presence of automatic (implantable) cardiac defibrillator; G89.29 Other chronic pain; E03.9 Hypothyroidism, unspecified; E78.5 Hyperlipidemia, unspecified; F41.9 Anxiety disorder, unspecified; I25.2 Old myocardial infarction; Z79.01 Long term (current) use of anticoagulants; Z87.891 Personal history of nicotine dependence
CPT/HCPCS: 36415; 80048; 80053; 82550; 83735; 85025; 85027; 85651; 96374; 97161; 97530; 99285; C9113; G0378; G8978; G8979; J1885; J2270; J2930